=== PATIENT | female | born 1990 | race African-American/Black ===

== ENCOUNTER 2017-07-19 19:13 | Emergency (ER) | payer BC ==
[2017-07-19 19:25] VITALS: BP 149/94
[2017-07-19] MEDS ORDERED: IPRATROPIUM/ALBUTEROL 0.5-2.5 MG/3 ML AMPUL NEB ONE ×2 (19:53→20:18)
[2017-07-19] MEDS ORDERED: PREDNISONE 20 MG TABLET PO ONE (19:54)
--- NOTE | 2017-07-19 19:54 | ER Document Report ---
ED General - General Chief Complaint: Shortness Of Breath Stated Complaint: DIFFICULTY BREATHING Time Seen by Provider: 07/19/17 19:53 Mode of Arrival: Ambulatory Information source: Patient Notes: 27-year-old female history of asthma presents with complaints of asthma exacerbation. Patient notes productive greenish cough over the past 2 days. Denies any fevers or chills TRAVEL OUTSIDE OF THE [place] IN LAST 30 DAYS: No - HPI Onset: Other - 2 day duration Onset/Duration: Persistent Quality of pain: Achy Severity: Mild Pain Level: Denies Associated symptoms: Productive cough, Shortness of breath Exacerbated by: Coughing Relieved by: Denies Similar symptoms previously: Yes Recently seen / treated by doctor: Yes - Related Data Allergies/Adverse Reactions: clindamycin [Clindamycin] Allergy (Verified 01/23/15 19:31) metoclopramide HCl [From Reglan] Allergy (Verified 01/23/15 19:31) Past Medical History - Social History Smoking Status: Never Smoker Cigarette use (# per day): No Chew tobacco use (# tins/day): No Smoking Education Provided: No Frequency of alcohol use: None Drug Abuse: None Family History: Reviewed & Not Pertinent Patient has suicidal ideation: No Patient has homicidal ideation: No Pulmonary Medical History: Reports: Hx Asthma Neurological Medical History: Reports: Hx Migraine Renal/ Medical History: Denies: Hx Peritoneal Dialysis GI Medical History: Reports: Hx Gastroesophageal Reflux Disease Skin Medical History: Reports Hx Eczema Past Surgical History: Reports: Hx Section - x2, Hx Cholecystectomy - Immunizations Immunizations up to date: Yes Hx Diphtheria, Pertussis, Tetanus Vaccination: Yes - 2016 Review of Systems - Review of Systems Notes: REVIEW OF SYSTEMS: CONSTITUTIONAL : Denies fever, chills, or sweats. Denies recent illness. EENT: Denies eye, ear, throat, or mouth pain or symptoms. Denies nasal or sinus congestion or discharge. Denies throat, tongue, or mouth swelling or difficulty swallowing. CARDIOVASCULAR: Denies chest pain. Denies palpitations or racing or irregular heart beat. Denies ankle edema. RESPIRATORY: Admits productive cough GASTROINTESTINAL: Denies abdominal pain or distention. Denies nausea, vomiting , or diarrhea. Denies blood in vomitus, stools, or per rectum. Denies black, tarry stools. Denies constipation. GENITOURINARY: Denies difficulty urinating, painful urination, burning, frequency, blood in urine, or discharge. FEMALE GENITOURINARY: Denies vaginal bleeding, heavy or abnormal periods, irregular periods. Denies vaginal discharge or odor. MUSCULOSKELETAL: Denies back or neck pain or stiffness. Denies joint pain or swelling. SKIN: Denies rash, lesions or sores. HEMATOLOGIC : Denies easy bruising or bleeding. LYMPHATIC: Denies swollen, enlarged glands. NEUROLOGICAL: Denies confusion or altered mental status. Denies passing out or loss of consciousness. Denies dizziness or lightheadedness. Denies headache. Denies weakness or paralysis or loss of use of either side. Denies problems with gait or speech. Denies sensory loss, numbness, or tingling. Denies seizures. PSYCHIATRIC: Denies anxiety or stress. Denies depression, suicidal ideation, or homicidal ideation. ALL OTHER SYSTEMS REVIEWED AND NEGATIVE. PHYSICAL EXAMINATION: GENERAL: Well-appearing, well-nourished and in no acute distress. HEAD: Atraumatic, normocephalic. EYES: Pupils equal round and reactive to light, extraocular movements intact, conjunctiva are normal. ENT: Nares patent, oropharynx clear without exudates. Moist mucous membranes. NECK: Normal range of motion, supple without lymphadenopathy LUNGS: Very faint inspiratory expiratory wheezing HEART: Regular rate and rhythm without murmurs ABDOMEN: Soft, nontender, nondistended abdomen. No guarding, no rebound. No masses appreciated. Female : deferred Musculoskeletal: Normal range of motion, no pitting or edema. No cyanosis. NEUROLOGICAL: Cranial nerves grossly intact. Normal speech, normal gait. Normal sensory, motor exams PSYCH: Normal mood, normal affect. SKIN: Warm, Dry, normal turgor, no rashes or lesions noted. Dictation was performed using [employer] voice recognition software Physical Exam - Vital signs Vitals: Temp Pulse Resp BP Pulse Ox 98.8 F 107 H 16 149/94 H 100 07/19/17 19:20 07/19/17 19:20 07/19/17 19:20 07/19/17 19:20 07/19/17 19:20 Course - Re-evaluation Re-evalutation: 07/19/17 20:54 Chest x-ray no no significant abnormality, given productivity of cough and exacerbation I will start the patient on antibiotics. She was given breathing treatments no significant improvement of breathing After performing a Medical Screening Examination, I estimate there is LOW risk for ACUTE CORONARY SYNDROME, RESPIRATORY FAILURE, SEPSIS OR MENINGITIS, thus I consider the discharge disposition reasonable. I have reevaluated this patient multiple times and no significant life threatening changes are noted. The patient and I have discussed the diagnosis and risks, and we agree with discharging home with close follow-up. We also discussed returning to the Emergency Department immediately if new or worsening symptoms occur. We have discussed the symptoms which are most concerning (e.g., changing or worsening pain, trouble swallowing or breathing, neck stiffness, fever) that necessitate immediate return. - Vital Signs Vital signs: Temp Pulse Resp BP Pulse Ox 98.8 F 107 H 16 149/94 H 100 07/19/17 19:20 07/19/17 19:20 07/19/17 19:20 07/19/17 19:20 07/19/17 19:20 - Diagnostic Test Radiology reviewed: Image reviewed, Reports reviewed - No significant abnormality Discharge - Discharge Clinical Impression: Asthma exacerbation Qualifiers: Asthma severity: mild Asthma persistence: intermittent Qualified Code(s): J45.21 - Mild intermittent asthma with (acute) exacerbation Condition: Stable Disposition: HOME, SELF-CARE Instructions: Asthma ([facility]) Additional Instructions: Follow up with your physician tomorrow for further care or return to the ED IMMEDIATELY if symptoms worsen or new concerns occur. If you cannot afford to follow up with your primary care physician a list of low cost clinics have been provided at the end of your discharge papers as well. Prescriptions: Azithromycin 250 mg PO ASDIR PRN #6 tablet PRN Reason: Prednisone [Deltasone 20 mg Tablet] 60 mg PO DAILY 5 Days #30 tablet Forms: Return to Work
--- NOTE | 2017-07-19 20:23 | RADIOLOGY REPORT (SQ) ---
EXAM DESCRIPTION: CHEST PA/LAT COMPLETED DATE/TIME: 07/19/2017 8:02 pm REASON FOR STUDY: productive cough ,asthma COMPARISON: None. EXAM PARAMETERS: NUMBER OF VIEWS: two views TECHNIQUE: Digital Frontal and Lateral radiographic views of the chest acquired. RADIATION DOSE: NA LIMITATIONS: none FINDINGS: LUNGS AND PLEURA: No opacities, masses or pneumothorax. No pleural effusion. MEDIASTINUM AND HILAR STRUCTURES: No masses or contour abnormalities. HEART AND VASCULAR STRUCTURES: Heart normal size. No evidence for failure. BONES: No acute findings. HARDWARE: None in the chest. OTHER: No other significant finding. IMPRESSION: NO SIGNIFICANT RADIOGRAPHIC FINDING IN THE CHEST. TECHNICAL DOCUMENTATION: JOB ID: [id number] [employer]- All Rights Reserved
== END 2017-07-19 20:59 | disposition home or self-care (01) ==
LOC: ER 19:13
DX: J45.21 Mild intermittent asthma with (acute) exacerbation (principal); Z90.49 Acquired absence of other specified parts of digestive tract; Z88.3 Allergy status to other anti-infective agents
CPT/HCPCS: 94640 ×2; 99284; 71020; J7512; J7620

== ENCOUNTER 2017-07-27 14:14 | Emergency (ER) | payer BC ==
--- NOTE | 2017-07-27 18:25 | EKG REPORT ---
SEVERITY:- NORMAL ECG - SINUS RHYTHM : Confirmed by: Rohan Herndon MD 27-Jul-2017 18:25:21
--- NOTE | 2017-07-27 18:55 | ER Document Report ---
ED Medical Screen (RME) - General Chief Complaint: Chest Pain Stated Complaint: CHEST,LEG,HAND TINGLING Time Seen by Provider: 07/27/17 18:50 TRAVEL OUTSIDE OF THE [place] IN LAST 30 DAYS: No - HPI Notes: 07/27/17 18:50 Pt with h/o eczema and asthma presents to the ED c/o chest tightness with breathing and with swallowing foods/liquid x2 weeks. Pt states that she was eval'd here about 1 week ago and was given steroids, antibiotic, and breathing treatments. Pt states that her URI symptoms have since resolved, but continues to feel the same tightness since before prev treatment. The tightness sensation does not radiate. She is not sure of any activity that worsens/ improves. Pt able to ambulate w/o difficulty. Tightness is relatively constant. Denies any headache, fever, neck pain, URI, sore throat, palpitations , syncope, cough, wheeze, dyspnea, abdominal pain, nausea/vomiting/diarrhea, urinary retention, dysuria, hematuria. I have treated and performed a rapid initial assessment of this patient. A comprehensive ED assessment and evaluation of the patient, analysis of test results and completion of medical decision making process will be conducted by additional ED providers. - Related Data Allergies/Adverse Reactions: clindamycin [Clindamycin] Allergy (Verified 07/27/17 14:58) metoclopramide HCl [From Reglan] Allergy (Verified 07/27/17 14:58) Past Medical History - Social History Chew tobacco use (# tins/day): No Frequency of alcohol use: None Drug Abuse: None Pulmonary Medical History: Reports: Hx Asthma Neurological Medical History: Reports: Hx Migraine Renal/ Medical History: Denies: Hx Peritoneal Dialysis GI Medical History: Reports: Hx Gastroesophageal Reflux Disease Skin Medical History: Reports Hx Eczema Past Surgical History: Reports: Hx Section - x2, Hx Cholecystectomy - Immunizations Immunizations up to date: Yes Hx Diphtheria, Pertussis, Tetanus Vaccination: Yes - 2016 History of Influenza Vaccine for 07/2017 - 12/2017 Season: Yes Influenza Administration Date for 07/2017 - 12/2017 Season: 07/15/17 Physical Exam - Vital signs Vitals: Temp Pulse Resp BP Pulse Ox 98.3 F 100 20 143/73 H 100 07/27/17 15:00 07/27/17 15:00 07/27/17 15:00 07/27/17 15:00 07/27/17 15:00 - Respiratory Respiratory status: No respiratory distress Chest status: Tender - tenderness elicited does not correspond to pt's concern Breath sounds: Normal - Cardiovascular Rhythm: Regular Heart sounds: Normal auscultation Course - Vital Signs Vital signs: Temp Pulse Resp BP Pulse Ox 98.3 F 100 20 143/73 H 100 07/27/17 15:00 07/27/17 15:00 07/27/17 15:00 07/27/17 15:00 07/27/17 15:00
--- NOTE | 2017-07-27 19:13 | RADIOLOGY REPORT (SQ) ---
EXAM DESCRIPTION: CHEST PA/LAT COMPLETED DATE/TIME: 07/27/2017 7:03 pm REASON FOR STUDY: chest tightness COMPARISON: 07/19/2017 EXAM PARAMETERS: NUMBER OF VIEWS: two views TECHNIQUE: Digital Frontal and Lateral radiographic views of the chest acquired. RADIATION DOSE: NA LIMITATIONS: none FINDINGS: LUNGS AND PLEURA: No opacities, masses or pneumothorax. No pleural effusion. MEDIASTINUM AND HILAR STRUCTURES: No masses or contour abnormalities. HEART AND VASCULAR STRUCTURES: Heart normal size. No evidence for failure. BONES: No acute findings. HARDWARE: None in the chest. OTHER: No other significant finding. IMPRESSION: NO SIGNIFICANT RADIOGRAPHIC FINDING IN THE CHEST. TECHNICAL DOCUMENTATION: JOB ID: [id number] [employer]- All Rights Reserved
[2017-07-27 19:31] LABS: ABSOLUTE EOSINOPHILS # (AUTO) 0.2 10^3/uL (0.0-0.6); ABSOLUTE LYMPHOCYTES (AUTO) 2.1 10^3/uL (0.5-4.7); ABSOLUTE MONOCYTES (AUTO) 0.8 10^3/uL (0.1-1.4); ABSOLUTE NEUT (AUTO) 6.6 10^3/uL (1.7-8.2); BASOPHILS % (AUTO) 0.3 % (0-2); EOSINOPHILS % (AUTO) 1.8 % (0-6); HEMATOCRIT 34.2 % (36.0-47.0); HEMOGLOBIN 10.7 g/dL (12.0-15.5); HGB HCT DIFFERENCE -2.1; LYMPHOCYTES % (AUTO) 21.5 % (13-45); MEAN CORPUSCULAR HEMOGLOBIN 20.5 pg (27.0-33.4); MEAN CORPUSCULAR HGB CONC 31.3 g/dL (32.0-36.0); MEAN CORPUSCULAR VOLUME 66 fl (80-97); MONOCYTES % (AUTO) 7.9 % (3-13); RED BLOOD COUNT 5.22 10^6/uL (3.72-5.28); RED CELL DISTRIBUTION WIDTH 16.7 % (11.5-14.0); SEGMENTED NEUTROPHILS % (AUTO) 68.5 % (42-78); WHITE BLOOD COUNT 9.6 10^3/uL (4.0-10.5)
[2017-07-27 19:48] LABS: ALANINE AMINOTRANSFERASE 26 U/L (9-52); ALBUMIN 3.3 g/dL (3.5-5.0); ALKALINE PHOSPHATASE 87 U/L (38-126); ANION GAP 7 (5-19); ASPARTATE AMINO TRANSFERASE 16 U/L (14-36); BILIRUBIN,DIRECT 0.3 mg/dL (0.0-0.4); BILIRUBIN,TOTAL 0.3 mg/dL (0.2-1.3); BLOOD UREA NITROGEN 11 mg/dL (7-20); CALCIUM 9.1 mg/dL (8.4-10.2); CARBON DIOXIDE 30 mmol/L (22-30); CHLORIDE 105 mmol/L (98-107); CREATININE RESULT 0.77 mg/dL (0.52-1.25); GLUCOSE 84 mg/dL (75-110); POTASSIUM 4.2 mmol/L (3.6-5.0); SODIUM 142.1 mmol/L (137-145); TOTAL PROTEIN 6.4 g/dL (6.3-8.2)
--- NOTE | 2017-07-27 21:01 | RADIOLOGY REPORT (SQ) ---
EXAM DESCRIPTION: CTA CHEST COMPLETED DATE/TIME: 07/27/2017 8:42 pm REASON FOR STUDY: SOB COMPARISON: 12/26/2015 and 04/25/2014 TECHNIQUE: CT scan of the chest performed using helical scanning technique with dynamic intravenous contrast injection. Images reviewed with lung, soft tissue and bone windows. Reconstructed coronal and sagittal MPR images reviewed. Additional 3 dimensional post-processing performed to develop Maximal Intensity Projection images (SD P). All images stored on PACS. All CT scanners at this facility use dose modulation, iterative reconstruction, and/or weight based d osing when appropriate to reduce radiation dose to as low as reasonably achievable (ALARA). [facility]: Dose Right [facility]: CareDose [facility]: Dose Right [facility]: Teradose 4D [facility]: 13th Lab CONTRAST TYPE AND DOSE: contrast/concentration: Isovue 370.00 mg/ml; Total Contrast Delivered: 86.0 ml; Total Saline Delivered: 109.9 ml Contrast bolus optimized for the pulmonary arteries. Not diagnostic for the aorta. RENAL FUNCTION: None required. The patient is less than 50 years old. RADIATION DOSE: Up-to-date CT equipment and radiation dose reduction techniques were employed. CTDIv ol: 13.2 - 41.5 mGy. DLP: 1358 mGy-cm. . LIMITATIONS: None. FINDINGS: LUNGS AND PLEURA: No masses, infiltrates, pneumothorax. No pleural effusions, calcificati ons. AORTA AND GREAT VESSELS: No aneurysm. Contrast bolus not optimized for the aorta. HEART: No pericardial effusion. No significant coronary artery calcifications. PULMONARY ARTERIES: No emboli visualized in the main pulmonary arteries or the segmental branches. HILAR AND MEDIASTINAL STRUCTURES: No identified masses or abnormal nodes. HARDWARE: None in the chest. UPPER ABDOMEN: Stable small hiatal hernia. Status post cholecystectomy. No additional significant f indings. Limited exam. THYROID AND OTHER SOFT TISSUES: No masses. No adenopathy. BONES: No acute or significant finding. 3D MIPS: Confirm above findings. OTHER: No other significant finding. IMPRESSION: NORMAL CTA OF THE CHEST. NO PULMONARY EMBOLI. NO SIGNIFICANT CHANGE FROM PRIOR 2 STUDIE S. COMMENT: Quality ID # [id number]: Final reports with documentation of one or more dose reduction techniques (e.g., Automated exposure control, adjustment of the mA and/or kV according to patient size, use of iterative reconstruction technique) TECHNICAL DOCUMENTATION: JOB ID: [id number] [employer]- All Rights Reserved
--- NOTE | 2017-07-27 21:05 | ER Document Report ---
ED Cardiac - General Chief Complaint: Chest Pain Stated Complaint: CHEST,LEG,HAND TINGLING Time Seen by Provider: 07/27/17 18:50 Mode of Arrival: Ambulatory Information source: Patient TRAVEL OUTSIDE OF THE [place] IN LAST 30 DAYS: No - HPI Patient complains to provider of: Chest pain, Chest tightness, Palpitations, Shortness of breath Was the onset of pain: Gradual Is the pain a: New problem Chest pain location: Pleuritic Quality of pain: Achy, Dull, Pressure Severity now: Mild Severity at worst: Moderate Chest pain precipitating factors: At Rest Cardiac risk factors: None Positive cardiac history: No Associated symptoms: Shortness of breath Exacerbated by: Coughing, Deep breaths, Torso movement, Lying flat Relieved by: Nothing Similar symptoms previously: Yes Notes: Patient is a 27-year-old female presenting to the emergency room today complaining of chest pain that has been present for the past 2 weeks, she was seen in this emergency room on 07/19/2017 for the symptoms and diagnosed with an asthma exacerbation, she was treated with antibiotics steroids and nebulizers, she reports mild intermittent relief of symptoms but they have returned and worsened, she reports that pain is worse when she takes a deep breath, she makes a certain twisting movement, symptoms sometimes radiate up into her neck and give her tingling sensation in her arms and legs at times, patient has a history of asthma and eczema as well as acid reflux, she sees a 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 garage door 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 for her asthma and uses nebulizer treatments at home as needed - Related Data Allergies/Adverse Reactions: clindamycin [Clindamycin] Allergy (Verified 07/27/17 14:58) metoclopramide HCl [From Reglan] Allergy (Verified 07/27/17 14:58) Past Medical History - General Information source: Patient - Social History Smoking Status: Never Smoker Chew tobacco use (# tins/day): No Frequency of alcohol use: None Drug Abuse: None Family History: Reviewed & Not Pertinent Pulmonary Medical History: Reports: Hx Asthma Neurological Medical History: Reports: Hx Migraine Renal/ Medical History: Denies: Hx Peritoneal Dialysis GI Medical History: Reports: Hx Gastroesophageal Reflux Disease Skin Medical History: Reports Hx Eczema Past Surgical History: Reports: Hx Section - x2, Hx Cholecystectomy - Immunizations Immunizations up to date: Yes Hx Diphtheria, Pertussis, Tetanus Vaccination: Yes - 2016 Review of Systems - Review of Systems Constitutional: No symptoms reported EENT: No symptoms reported Cardiovascular: See HPI Respiratory: See HPI Gastrointestinal: No symptoms reported Genitourinary: No symptoms reported Female Genitourinary: No symptoms reported Musculoskeletal: No symptoms reported Skin: No symptoms reported Hematologic/Lymphatic: No symptoms reported Neurological/Psychological: No symptoms reported -: Yes All other systems reviewed and negative Physical Exam - Vital signs Vitals: Temp Pulse Resp BP Pulse Ox 98.3 F 100 20 143/73 H 100 07/27/17 15:00 07/27/17 15:00 07/27/17 15:00 07/27/17 15:00 07/27/17 15:00 Interpretation: Normal - General General appearance: Appears well, Alert - HEENT Head: Normocephalic, Atraumatic Eyes: Normal Pupils: PERRL - Respiratory Respiratory status: No respiratory distress Chest status: Tender - Tender to palpate over midsternum Breath sounds: Normal Chest palpation: Normal - Cardiovascular Rhythm: Regular Heart sounds: Normal auscultation Murmur: No - Abdominal Inspection: Normal Distension: No distension Bowel sounds: Normal Tenderness: Nontender Organomegaly: No organomegaly - Back Back: Normal, Nontender - Extremities General upper extremity: Normal inspection, Nontender, Normal color, Normal ROM , Normal temperature General lower extremity: Normal inspection, Nontender, Normal color, Normal ROM , Normal temperature, Normal weight bearing. No: Yuko's sign - Neurological Neuro grossly intact: Yes Cognition: Normal Orientation: AAOx4 Liana Coma Scale Eye Opening: Spontaneous Liana Coma Scale Verbal: Oriented Liana Coma Scale Motor: Obeys Commands Liana Coma Scale Total: 15 Speech: Normal Motor strength normal: LUE, RUE, LLE, RLE Sensory: Normal - Psychological Associated symptoms: Normal affect, Normal mood - Skin Skin Temperature: Warm Skin Moisture: Dry Skin Color: Normal Course - Re-evaluation Re-evalutation: 07/27/17 22:50 Lab and imaging findings are completely unremarkable in this 27-year-old healthy female, patient does have some reproducible chest pain on palpation, this is her second visit this month for these symptoms, a review of her history shows multiple visits in the past for similar symptoms, patient was advised to follow-up with her primary care provider, continue using nebulizer treatments at home, take Tylenol or Motrin as needed for pain, or return if symptoms worsen , patient acknowledges understanding and agreement with this plan - Vital Signs Vital signs: Temp Pulse Resp BP Pulse Ox 98.3 F 89 16 129/93 H 98 07/27/17 15:00 07/27/17 21:23 07/27/17 18:50 07/27/17 21:23 07/27/17 21:23 - Laboratory Result Diagrams: 07/27/17 19:10 07/27/17 19:10 Laboratory results interpreted by me: 07/27/17 07/27/17 19:10 19:10 Hgb 10.7 L Hct 34.2 L MCV 66 L MCH 20.5 L MCHC 31.3 L RDW 16.7 H Albumin 3.3 L - Diagnostic Test Radiology reviewed: Image reviewed, Reports reviewed - EKG Interpretation by Me EKG shows normal: Sinus rhythm Rate: Normal Rhythm: NSR Discharge - Discharge Clinical Impression: Chest pain Condition: Stable Disposition: HOME, SELF-CARE Instructions: Chest Wall Pain ([facility]), Chest Pain of Unclear Cause ([facility]) Additional Instructions: Follow up with your primary care provider in one to 2 days. Return to the emergency room immediately if symptoms worsen or any additional concerns.
[2017-07-27 21:24] LABS: CREATINE KINASE MB < 0.22 ng/mL (<4.55); TROPONIN I < 0.012 ng/mL
[2017-07-27 21:28] VITALS: BP 129/93
== END 2017-07-27 21:28 | disposition home or self-care (01) ==
LOC: ER 14:14
DX: R07.9 Chest pain, unspecified (principal); R20.2 Paresthesia of skin; Z88.6 Allergy status to analgesic agent; Z90.49 Acquired absence of other specified parts of digestive tract
CPT/HCPCS: 36415; 71020; 71275; 80053; 82550; 82553; 83880; 84484; 84702; 85025; 93005; 93010; 99285

== ENCOUNTER 2017-09-14 16:47 | Emergency (ER) | payer BC ==
[2017-09-14] MEDS ORDERED: LIDOCAINE 2% VISCOUS SOLN 20 ML UDCUP PO ONE (19:04)
--- NOTE | 2017-09-14 19:12 | ER Document Report ---
ED General <KEVEN RODRÍGUEZ - Last Filed: 09/14/17 20:21> - General Mode of Arrival: Ambulatory Information source: Patient TRAVEL OUTSIDE OF THE [place] IN LAST 30 DAYS: No - HPI Patient complains to provider of: Shortness of Breath and abdominal pain Onset: Other - 1 week ago Associated symptoms: Other - see notes above <SHILPA NORIEGA - Last Filed: 09/14/17 20:30> - General Chief Complaint: Epigastric Pain Stated Complaint: DIZZY, CHEST TIGHTNESS, SHORTNESS OF BREATH Time Seen by Provider: 09/14/17 18:42 Notes: 27 year old female with history of asthma and GERD presents to the ED complaining of shortness of breath and a dull throbbing pain to the epigastrium that radiates to the RUQ which started 1 week ago. Patient reports that her primary care provider gave her Prednisone thinking her asthma was acting up, but the patient had no relief. Patient additionally complains of some chest discomfort and nausea. Pain is worsened when laying or sitting down. Pain not exacerbated with eating. Patient takes 20mg Pantoprazole bid. (SHILPA NORIEGA) - Related Data Allergies/Adverse Reactions: clindamycin [Clindamycin] Allergy (Verified 09/14/17 16:50) metoclopramide HCl [From Reglan] Allergy (Verified 09/14/17 16:50) Home Medications: Current Home Medications Albuterol Sulfate [Proair HFA] 1 - 2 puff IH Q4 PRN 09/14/17 [History] Budesonide/Formoterol Fumarate [Symbicort 160-4.5 Mcg Inhaler] 2 puff IN DAILY 09/14/17 [History] Hydroxyzine HCl [Hydroxyzine HCl] 25 mg PO QID PRN 09/14/17 [History] Pantoprazole Sodium [Pantoprazole Sodium] 40 mg PO DAILY 09/14/17 [History] Pimecrolimus [Elidel] 1 appful TOP ASDIR PRN 09/14/17 [History] Tiotropium [place] [Spiriva Handihaler 18 mcg/dose (30 Dose)] 1 cap IH BID 09/14 [History] Topiramate [Topiramate] 50 mg PO BID 09/14/17 [History] Zolpidem Tartrate [Zolpidem Tartrate] 10 mg PO QHS 09/14/17 [History] Past Medical History - General Information source: Patient - Social History Smoking Status: Unknown if Ever Smoked Chew tobacco use (# tins/day): No Frequency of alcohol use: None Drug Abuse: None Family History: Reviewed & Not Pertinent Patient has suicidal ideation: No Patient has homicidal ideation: No Pulmonary Medical History: Reports: Hx Asthma Neurological Medical History: Reports: Hx Migraine Renal/ Medical History: Denies: Hx Peritoneal Dialysis GI Medical History: Reports: Hx Gastroesophageal Reflux Disease Skin Medical History: Reports Hx Eczema Past Surgical History: Reports: Hx Section - x2, Hx Cholecystectomy - Immunizations Immunizations up to date: Yes Hx Diphtheria, Pertussis, Tetanus Vaccination: Yes - 2016 <SHILPA NORIEGA - Last Filed: 09/14/17 20:30> Review of Systems - Review of Systems Constitutional: No symptoms reported EENT: No symptoms reported Cardiovascular: No symptoms reported Respiratory: See HPI, Short of breath Gastrointestinal: See HPI, Abdominal pain, Nausea Genitourinary: No symptoms reported Female Genitourinary: No symptoms reported Musculoskeletal: No symptoms reported Skin: No symptoms reported Hematologic/Lymphatic: No symptoms reported Neurological/Psychological: No symptoms reported -: Yes All other systems reviewed and negative <SHILPA NORIEGA - Last Filed: 09/14/17 20:30> Physical Exam - General General appearance: Alert In distress: None - Respiratory Respiratory status: No respiratory distress Breath sounds: Normal - Cardiovascular Rhythm: Regular Heart sounds: Normal auscultation - Abdominal Inspection: Normal Tenderness: Nontender <SHILPA NORIEGA - Last Filed: 09/14/17 20:30> - Vital signs Vitals: Temp Pulse Resp BP Pulse Ox 97.8 F 95 16 125/89 H 99 09/14/17 16:52 09/14/17 16:52 09/14/17 16:52 09/14/17 16:52 09/14/17 16:52 Course - EKG Interpretation by Mo EKG shows normal: Sinus rhythm Rate: Normal Rhythm: NSR <KEVEN RODRÍGUEZ - Last Filed: 09/14/17 20:21> <SHILPA NORIEGA - Last Filed: 09/14/17 20:30> - Re-evaluation Re-evalutation: 09/14/17 20:21 Patient states that GI cocktail has helped with her symptoms. EKG shows no changes from previous normal sinus rhythm with negative troponin. Troponin was taken due to patient's weight and concern of which she states has been discomfort in the epigastric area. This pain has been continuous for over a week for only 1 troponin is necessary at this time. Will be discharged an adjunct her omeprazole with Zantac and have patient follow-up with her primary care within the next week if symptoms continue (KEVEN RODRÍGUEZ) 09/14/17 20:23 Patient is PERC negative. (SHILPA NORIEGA) - Vital Signs Vital signs: Temp Pulse Resp BP Pulse Ox 97.8 F 95 16 125/89 H 99 09/14/17 16:52 09/14/17 16:52 09/14/17 16:52 09/14/17 16:52 09/14/17 16:52 Discharge <KEVEN RODRÍGUEZ - Last Filed: 09/14/17 20:21> <SHILPA NORIEGA - Last Filed: 09/14/17 20:30> - Discharge Clinical Impression: Gastritis Condition: Stable Disposition: HOME, SELF-CARE Instructions: Gastritis ([facility]) Additional Instructions: Follow up with primary care within a week or return to the ED for new or worsening symptoms. Prescriptions: Ranitidine HCl [Zantac 150 mg Tablet] 150 mg PO BID #60 tablet Scribe Documentation - Scribe Written by Nichelle:: Nichelle Jones, 09/14/20171947 acting as scribe for :: Dc <SHILPA NORIEGA - Last Filed: 09/14/17 20:30>
[2017-09-14] MEDS ORDERED: MAG HYDROX/AL HYDROX/SIMETH SUSP 30 ML UDCUP PO PRN (19:31)
[2017-09-14] MEDS ORDERED: FAMOTIDINE 20 MG TABLET PO ONE (19:32)
[2017-09-14] MEDS ORDERED: BACLOFEN 20 MG TABLET PO ONE (19:32)
[2017-09-14 20:39] VITALS: BP 137/80
--- NOTE | 2017-09-15 20:58 | EKG REPORT ---
SEVERITY:- NORMAL ECG - SINUS RHYTHM : Confirmed by: Rohan Herndon MD 15-Sep-2017 14:23:22
== END 2017-09-14 20:39 | disposition home or self-care (01) ==
LOC: ER 16:47
DX: K29.70 Gastritis, unspecified, without bleeding (principal); R06.02 Shortness of breath; R42 Dizziness and giddiness; R07.9 Chest pain, unspecified; Z88.3 Allergy status to other anti-infective agents; Z90.49 Acquired absence of other specified parts of digestive tract
CPT/HCPCS: 93005; 99284; 36415; 84484; 93010; J3490 ×2

== ENCOUNTER 2017-09-20 22:09 | Emergency (ER) | payer BC ==
[2017-09-20] MEDS ORDERED: LIDOCAINE 2% VISCOUS SOLN 20 ML UDCUP PO ONE (23:00)
[2017-09-20] MEDS ORDERED: MAG HYDROX/AL HYDROX/SIMETH SUSP 30 ML UDCUP PO ONE (23:00)
--- NOTE | 2017-09-20 23:03 | ER Document Report ---
ED GI/ - General Chief Complaint: Abdominal Pain Stated Complaint: ABDOMINAL PAIN Time Seen by Provider: 09/20/17 22:45 Mode of Arrival: Ambulatory Information source: Patient Notes: Patient presents complaining of epigastric abdominal pain that goes into her chest and down into her abdomen that has been present for the past 2 weeks. Patient states that the pain worsens whenever she eats food. Patient states that she has not ate any food for the past 2 days in an attempt to prevent her stomach from hurting. Patient states she was evaluated for this complaint a week ago. Patient denies any improvement of her symptoms. Patient states she has had left lower pelvic pain for the past 3 days. Patient denies any vaginal bleeding or discharge. Patient denies any urinary symptoms, nausea, vomiting or diarrhea. Patient states last bowel movement was today and it was normal. Patient denies any cough or cold symptoms. Patient denies any history of DVT or PE in the past. TRAVEL OUTSIDE OF THE [place] IN LAST 30 DAYS: No - HPI Patient complains to provider of: Abdominal pain - Epigastric, Pelvic pain - Left lower pelvic. No: Diarrhea, Dysuria, Hematuria, Vaginal discharge, Vaginal pain, Vomiting Onset: Other - Epigastric pain 2 weeks, pelvic pain 3 days Timing/Duration: Persistent Quality of pain: Sharp Pain Level: 4 Location: Epigastric, LLQ Vaginal bleeding (Compared to normal period): None Associated symptoms: denies: Constipation, Diarrhea, Dysuria, Fever, Loss of appetite, Nausea, Urinary hesitancy, Urinary frequency, Urinary retention, Vaginal discharge, Vomiting Exacerbated by: Food Relieved by: Denies Similar symptoms previously: Yes Recently seen / treated by doctor: Yes - Related Data Allergies/Adverse Reactions: clindamycin [Clindamycin] Allergy (Verified 09/20/17 22:09) Past Medical History - General Information source: Patient - Social History Smoking Status: Current Every Day Smoker Frequency of alcohol use: None Drug Abuse: None Occupation: Works at [employer] with: Family Family History: Reviewed & Not Pertinent Patient has suicidal ideation: No Patient has homicidal ideation: No - Past Medical History Cardiac Medical History: Denies: Hx Hypercholesterolemia, Hx Hypertension Pulmonary Medical History: Reports: Hx Asthma Neurological Medical History: Reports: Hx Migraine Renal/ Medical History: Denies: Hx Peritoneal Dialysis GI Medical History: Reports: Hx Gastroesophageal Reflux Disease Skin Medical History: Reports Hx Eczema Past Surgical History: Reports: Hx Section - x2, Hx Cholecystectomy - Immunizations Immunizations up to date: Yes Hx Diphtheria, Pertussis, Tetanus Vaccination: Yes - 2017 Review of Systems - Review of Systems Constitutional: No symptoms reported. denies: Fever, Recent illness EENT: No symptoms reported Cardiovascular: Chest pain - Abdominal pain radiates to her chest Respiratory: Short of breath - Patient states pain will occasionally make her short of breath. denies: Cough Gastrointestinal: Abdominal pain. denies: Nausea, Vomiting, Poor appetite Genitourinary: No symptoms reported. denies: Dysuria, Flank pain Female Genitourinary: No symptoms reported. denies: Vaginal discharge, Vaginal bleeding Musculoskeletal: No symptoms reported. denies: Back pain Skin: No symptoms reported Hematologic/Lymphatic: No symptoms reported Neurological/Psychological: No symptoms reported Physical Exam - Vital signs Vitals: Temp Pulse Resp BP Pulse Ox 98.3 F 105 H 16 142/87 H 100 09/20/17 22:16 09/20/17 22:16 09/20/17 22:16 09/20/17 22:16 09/20/17 22:16 - General General appearance: Appears well, Alert In distress: None - HEENT Head: Normocephalic Eyes: Normal Nasal: Normal Mouth/Lips: Normal Neck: Normal, Supple. No: Lymphadenopathy - Respiratory Respiratory status: No respiratory distress Chest status: Nontender Breath sounds: Normal Chest palpation: Normal - Cardiovascular Rhythm: Regular Heart sounds: S1 appreciated, S2 appreciated Murmur: No - Abdominal Inspection: Morbidly Obese Distension: No distension Bowel sounds: Normal Tenderness: Tender - epigastric Organomegaly: No organomegaly - Genitourinary External exam: Normal Speculum exam: Vaginal discharge Vaginal bleeding: None Bimanuel exam: Adnexal tenderness - Left - Back Back: Normal, Nontender. No: CVA tenderness, Vertebra tenderness - Extremities General upper extremity: Normal inspection, Nontender, Normal ROM General lower extremity: Normal inspection, Nontender, Normal ROM - Neurological Neuro grossly intact: Yes Cognition: Normal Burg[place] Coma Scale Eye Opening: Spontaneous [place] Coma Scale Verbal: Oriented Burg[place] Coma Scale Motor: Obeys Commands Liana Coma Scale Total: 15 - Psychological Associated symptoms: Normal affect, Normal mood - Skin Skin Temperature: Warm Skin Moisture: Dry Skin Color: Normal Course - Re-evaluation Re-evalutation: 09/21/17 12:[address] Riggs regarding patient presentation. Reviewed patient's symptoms tonight as well as her diagnostic evaluation on her previous ER visit. Reviewed patient's EKG. Agrees with diagnostic evaluation, no additional testing advised at this time. 09/21/17 01:54 Report and handoff given to Katty JOHNS - Vital Signs Vital signs: Temp Pulse Resp BP Pulse Ox 98.3 F 105 H 16 142/87 H 100 09/20/17 22:16 09/20/17 22:16 09/20/17 22:16 09/20/17 22:16 09/20/17 22:16 - Laboratory Result Diagrams: 09/20/17 23:15 09/20/17 23:15 Laboratory results interpreted by me: 09/20/17 23:15 Hgb 10.5 L Hct 33.7 L MCV 66 L MCH 20.7 L MCHC 31.3 L RDW 16.7 H Labs- Entire Visit 09/20/17 09/20/17 09/20/17 23:12 23:15 23:15 WBC 10.2 RBC 5.08 Hgb 10.5 L Hct 33.7 L MCV 66 L MCH 20.7 L MCHC 31.3 L RDW 16.7 H Plt Count 380 Seg Neutrophils % 69.5 Lymphocytes % 16.7 Monocytes % 12.2 Eosinophils % 1.2 Basophils % 0.4 Absolute Neutrophils 7.1 Absolute Lymphocytes 1.7 Absolute Monocytes 1.2 Absolute Eosinophils 0.1 Absolute Basophils 0.0 Sodium 140.5 Potassium 4.1 Chloride 104 Carbon Dioxide 29 Anion Gap 8 BUN 7 Creatinine 0.69 Est GFR ( Amer) > 60 Est GFR (Non-Af Amer) > 60 Glucose 87 Calcium 9.3 Total Bilirubin 0.3 Direct Bilirubin 0.3 Neonat Total Bilirubin Not Reportable Neonat Direct Bilirubin Not Reportable Neonat Indirect Bili Not Reportable AST 19 ALT 37 Alkaline Phosphatase 81 Total Protein 6.9 Albumin 3.7 Lipase 53.4 Serum HCG, Qual Urine Color STRAW Urine Appearance CLEAR Urine pH 7.0 Ur Specific Atkins 1.004 Urine Protein NEGATIVE Urine Glucose (UA) NEGATIVE Urine Ketones NEGATIVE Urine Blood NEGATIVE Urine Nitrite NEGATIVE Urine Bilirubin NEGATIVE Urine Urobilinogen NEGATIVE Ur Leukocyte Esterase NEGATIVE Urine WBC (Auto) 0 Urine RBC (Auto) 0 Urine Bacteria (Auto) TRACE Squamous Epi Cells Auto 5 Urine Ascorbic Acid NEGATIVE Epi Cells (Wet Prep) Trichomonas (Wet Prep) Vaginal WBC Vaginal Yeast 09/20/17 09/21/17 23:15 00:05 WBC RBC Hgb Hct MCV MCH MCHC RDW Plt Count Seg Neutrophils % Lymphocytes % Monocytes % Eosinophils % Basophils % Absolute Neutrophils Absolute Lymphocytes Absolute Monocytes Absolute Eosinophils Absolute Basophils Sodium Potassium Chloride Carbon Dioxide Anion Gap BUN Creatinine Est GFR ( Amer) Est GFR (Non-Af Amer) Glucose Calcium Total Bilirubin Direct Bilirubin Neonat Total Bilirubin Neonat Direct Bilirubin Neonat Indirect Bili AST ALT Alkaline Phosphatase Total Protein Albumin Lipase Serum HCG, Qual NEGATIVE Urine Color Urine Appearance Urine pH Ur Specific Atkins Urine Protein Urine Glucose (UA) Urine Ketones Urine Blood Urine Nitrite Urine Bilirubin Urine Urobilinogen Ur Leukocyte Esterase Urine WBC (Auto) Urine RBC (Auto) Urine Bacteria (Auto) Squamous Epi Cells Auto Urine Ascorbic Acid Epi Cells (Wet Prep) 3+ EPITHELIALS SEEN Trichomonas (Wet Prep) NO TRICHOMONAS SEEN Vaginal WBC RARE WBCS SEEN Vaginal Yeast NO YEAST SEEN Discharge - Discharge Clinical Impression: Pelvic pain, Elevated blood pressure reading, Anxiety Gastritis Qualifiers: Gastritis type: unspecified gastritis Chronicity: unspecified Gastritis bleeding: without bleeding Qualified Code(s): K29.70 - Gastritis, unspecified, without bleeding Instructions: Abdominal Pain ([facility]), Reflux Disease (GERD) ([facility]), Gastritis ([facility] ), Anxiety ([facility]) Additional Instructions: Return immediately for any new or worsening symptoms Followup with your primary care provider, call tomorrow to make a followup appointment Follow-up with your service desk manager for recheck Follow-up with nutrition manager for recheck Follow-up with Dr. Chacon for reevaluation of your anxiety symptoms Prescriptions: Sucralfate [Carafate 1 gm Tablet] 1 gm PO ACHS #40 tablet Forms: Elevated Blood Pressure Referrals: LISETTE MACIEL MD [Primary Care Provider] - Follow up tomorrow MAXIMINO ELLER MD [ACTIVE STAFF] - Follow up in 3-5 days LAMAR ALCANTAR MD [NO LOCAL MD] - Follow up in 3-5 days
[2017-09-20 23:30] LABS: APPEARANCE,URINE CLEAR; BILIRUBIN,URINE NEGATIVE (NEGATIVE); GLUCOSE, URINE NEGATIVE (NEGATIVE); KETONES,URINE NEGATIVE (NEGATIVE); LEUKOCYTE ESTERASE,URINE NEGATIVE (NEGATIVE); NITRITE,URINE NEGATIVE (NEGATIVE); PROTEIN,URINE NEGATIVE (NEGATIVE); URINE SPECIFIC GRAVITY 1.004; UROBILINOGEN,URINE NEGATIVE mg/dL (<2.0)
[2017-09-20 23:39] LABS: ABSOLUTE EOSINOPHILS # (AUTO) 0.1 10^3/uL (0.0-0.6); ABSOLUTE LYMPHOCYTES (AUTO) 1.7 10^3/uL (0.5-4.7); ABSOLUTE MONOCYTES (AUTO) 1.2 10^3/uL (0.1-1.4); ABSOLUTE NEUT (AUTO) 7.1 10^3/uL (1.7-8.2); BASOPHILS % (AUTO) 0.4 % (0-2); EOSINOPHILS % (AUTO) 1.2 % (0-6); HEMATOCRIT 33.7 % (36.0-47.0); HEMOGLOBIN 10.5 g/dL (12.0-15.5); HGB HCT DIFFERENCE -2.2; LYMPHOCYTES % (AUTO) 16.7 % (13-45); MEAN CORPUSCULAR HEMOGLOBIN 20.7 pg (27.0-33.4); MEAN CORPUSCULAR HGB CONC 31.3 g/dL (32.0-36.0); MEAN CORPUSCULAR VOLUME 66 fl (80-97); MONOCYTES % (AUTO) 12.2 % (3-13); RED BLOOD COUNT 5.08 10^6/uL (3.72-5.28); RED CELL DISTRIBUTION WIDTH 16.7 % (11.5-14.0); SEGMENTED NEUTROPHILS % (AUTO) 69.5 % (42-78); WHITE BLOOD COUNT 10.2 10^3/uL (4.0-10.5)
[2017-09-21 00:04] LABS: ALANINE AMINOTRANSFERASE 37 U/L (9-52); ALBUMIN 3.7 g/dL (3.5-5.0); ALKALINE PHOSPHATASE 81 U/L (38-126); ANION GAP 8 (5-19); ASPARTATE AMINO TRANSFERASE 19 U/L (14-36); BILIRUBIN,DIRECT 0.3 mg/dL (0.0-0.4); BILIRUBIN,TOTAL 0.3 mg/dL (0.2-1.3); BLOOD UREA NITROGEN 7 mg/dL (7-20); CALCIUM 9.3 mg/dL (8.4-10.2); CARBON DIOXIDE 29 mmol/L (22-30); CHLORIDE 104 mmol/L (98-107); CREATININE RESULT 0.69 mg/dL (0.52-1.25); GLUCOSE 87 mg/dL (75-110); LIPASE 53.4 U/L (23-300); POTASSIUM 4.1 mmol/L (3.6-5.0); SODIUM 140.5 mmol/L (137-145); TOTAL PROTEIN 6.9 g/dL (6.3-8.2)
[2017-09-21] MEDS ORDERED: ACETAMINOPHEN 325 MG TABLET PO ONE (01:21)
--- NOTE | 2017-09-21 02:44 | RADIOLOGY REPORT (SQ) ---
EXAM DESCRIPTION: U/S NON OB PEL TV W/DOPPLER CLINICAL HISTORY: 27 years, Female, left adnexal tenderness COMPARISON: None. TECHNIQUE: Transabdominal. LIMITATIONS: Body habitus and position prevented transvaginal evaluation. FINDINGS: 9.2 cm uterus, 0.7 cm endometrial stripe thickness, 3.5 cm cervical length, right ovarian fossa, and 3.4 cm left ovary appear within normal limits in size, shape, echotexture, and vascularity. Trace arterial flow of the left ovary is identified and normal venous and color Doppler flow is seen within normal limits. The right ovary is not directly visualized. No free fluid. IMPRESSION: No acute findings. 2011 [employer]- All Rights Reserved
[2017-09-21] MEDS ORDERED: SUCRALFATE 1 GM TABLET PO ONE (03:13)
[2017-09-21 03:26] VITALS: BP 133/54
--- NOTE | 2017-09-21 04:45 | EKG REPORT ---
SEVERITY:- NORMAL ECG - SINUS RHYTHM : Confirmed by: Karol Leahy 21-Sep-2017 04:15:25
== END 2017-09-21 03:27 | disposition home or self-care (01) ==
LOC: ER 22:09
DX: K29.70 Gastritis, unspecified, without bleeding (principal); R10.13 Epigastric pain; R10.2 Pelvic and perineal pain; F41.9 Anxiety disorder, unspecified; R03.0 Elevated blood-pressure reading, without diagnosis of hypertension; R07.9 Chest pain, unspecified; J45.909 Unspecified asthma, uncomplicated; R06.02 Shortness of breath; F17.200 Nicotine dependence, unspecified, uncomplicated; Z88.1 Allergy status to other antibiotic agents; Z90.49 Acquired absence of other specified parts of digestive tract; Z87.19 Personal history of other diseases of the digestive system
CPT/HCPCS: 93005; 99284; 36415; 87210; 83690; 84703; 85025; 80053; 81001; 87491; 87591; 76830; 93976; 93010; J3490

== ENCOUNTER 2017-10-10 18:28 | Emergency (ER) | payer BC ==
[2017-10-10] MEDS ORDERED: HYDROXYZINE PAMOATE 25 MG CAPSULE PO ONE (19:50)
--- NOTE | 2017-10-10 19:55 | ER Document Report ---
ED General - General Chief Complaint: Shortness Of Breath Stated Complaint: SHORTNESS OF BREATH Time Seen by Provider: 10/10/17 19:42 Notes: 27-year-old female here with complaints of shortness of breath chest tightness and anxious feeling ongoing for the past 2-3 months. She has been seen here for similar and had a negative chest CTA. 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 She feels this may be anxiety related and was initially taking Zoloft but was taken off of it due to some type of allergic reaction. She currently feels somewhat anxious. TRAVEL OUTSIDE OF THE [place] IN LAST 30 DAYS: No - Related Data Allergies/Adverse Reactions: clindamycin [Clindamycin] Allergy (Verified 10/10/17 18:29) Home Medications: Current Home Medications Ipratropium/Albuterol Sulfate [Duoneb 3 ml Ampul] 1 vial PO TID PRN 10/10/17 [ History] Past Medical History - Social History Smoking Status: Never Smoker Frequency of alcohol use: None Drug Abuse: None Family History: Reviewed & Not Pertinent Patient has suicidal ideation: No Patient has homicidal ideation: No - Past Medical History Cardiac Medical History: Denies: Hx Hypercholesterolemia, Hx Hypertension Pulmonary Medical History: Reports: Hx Asthma Neurological Medical History: Reports: Hx Migraine Renal/ Medical History: Denies: Hx Peritoneal Dialysis GI Medical History: Reports: Hx Gastroesophageal Reflux Disease Skin Medical History: Reports Hx Eczema Past Surgical History: Reports: Hx Section - x2, Hx Cholecystectomy - Immunizations Immunizations up to date: Yes Hx Diphtheria, Pertussis, Tetanus Vaccination: Yes - 2016 Review of Systems - Review of Systems Notes: See history of present illness for pertinent positive review of systems; otherwise all review of systems have been reviewed and are negative Physical Exam - Vital signs Vitals: Temp Pulse Resp BP Pulse Ox 98.6 F 95 18 143/75 H 100 10/10/17 18:56 10/10/17 18:56 10/10/17 18:56 10/10/17 18:56 10/10/17 18:56 - Notes Notes: PHYSICAL EXAMINATION: GENERAL: Well-appearing and in no acute distress. HEAD: Atraumatic, normocephalic. EYES: Pupils equal round and reactive to light, extraocular movements intact, sclera anicteric, conjunctiva are normal. ENT: nares patent, oropharynx clear without exudates. Moist mucous membranes. NECK: Normal range of motion, supple without lymphadenopathy LUNGS: CTAB and equal. No wheezes rales or rhonchi. HEART: Regular rate and rhythm without murmurs ABDOMEN: Soft, no tenderness. No guarding, no rebound EXTREMITIES: Normal range of motion, no pitting edema. No cyanosis. NEUROLOGICAL: Cranial nerves grossly intact. Normal sensory/motor exams. PSYCH: Appears mildly anxious SKIN: Warm, Dry, normal turgor, no rashes or lesions noted Course - Re-evaluation Re-evalutation: 10/10/17 19:53 MEDICAL DECISION MAKING: Concern for anxiety/panic attacks Similar symptoms ongoing for the past 2 months with negative CTA chest Patient declines blood work and further workup today She feels this is anxiety related and is asking for medication for same Dose of hydroxyzine here and prescription for same Instructed follow-up PCP and/or television parts tester next day or few Patient understands and agrees to the plan of care - Vital Signs Vital signs: Temp Pulse Resp BP Pulse Ox 98.6 F 95 18 143/75 H 100 10/10/17 18:56 10/10/17 18:56 10/10/17 18:56 10/10/17 18:56 10/10/17 18:56 Discharge - Discharge Clinical Impression: SOB (shortness of breath), Chest tightness Condition: Good Disposition: HOME, SELF-CARE Additional Instructions: You declined blood work tonight. Use the prescribed medication as needed for your symptoms. You were seen in the emergency department at [facility]. If you were given any sedating medications, be sure not to operate heavy machinery (example - driving) and be sure you are not too sedated to walk appropriately. Please followup with your primary physician in the next few days for further management/evaluation. Please return to the emergency department for worsening of symptoms or any symptom that you deem to be concerning or life-threatening. Thank you for allowing us to be part of your care. Prescriptions: Hydroxyzine Pamoate 50 mg PO BIDP PRN #20 capsule PRN Reason:
[2017-10-10 20:06] VITALS: BP 131/89
== END 2017-10-10 20:02 | disposition home or self-care (01) ==
LOC: ER 18:28
DX: J45.909 Unspecified asthma, uncomplicated (principal); R06.02 Shortness of breath; R07.89 Other chest pain; Z88.1 Allergy status to other antibiotic agents; Z88.8 Allergy status to other drugs, medicaments and biological substances
CPT/HCPCS: 99284

== ENCOUNTER 2017-10-26 20:40 | Emergency (ER) | payer BC ==
[2017-10-26] MEDS ORDERED: NORMAL SALINE 500 ML IV ONE (21:46)
[2017-10-26 21:58] VITALS: BP 140/79
[2017-10-26 22:54] LABS: ABSOLUTE LYMPHOCYTES (AUTO) 1.7 10^3/uL (0.5-4.7); ABSOLUTE NEUT (AUTO) 8.2 10^3/uL (1.7-8.2); BASOPHILS % (AUTO) 0.2 % (0-2); HEMATOCRIT 33.2 % (36.0-47.0); HEMOGLOBIN 10.2 g/dL (12.0-15.5); LYMPHOCYTES % (AUTO) 15.3 % (13-45); MEAN CORPUSCULAR HEMOGLOBIN 20.5 pg (27.0-33.4); MEAN CORPUSCULAR HGB CONC 30.7 g/dL (32.0-36.0); MEAN CORPUSCULAR VOLUME 67 fl (80-97); MONOCYTES % (AUTO) 9.4 % (3-13); PLATELET COUNT 454 10^3/uL (150-450); RED BLOOD COUNT 4.97 10^6/uL (3.72-5.28); RED CELL DISTRIBUTION WIDTH 16.1 % (11.5-14.0); SEGMENTED NEUTROPHILS % (AUTO) 75.1 % (42-78); TOTAL CELLS COUNTED % (AUTO) 100 %; WHITE BLOOD COUNT 10.9 10^3/uL (4.0-10.5)
[2017-10-26 23:05] LABS: APPEARANCE,URINE SLIGHTLY-CLOUDY; BILIRUBIN,URINE NEGATIVE (NEGATIVE); COLOR,URINE YELLOW; GLUCOSE, URINE NEGATIVE (NEGATIVE); KETONES,URINE TRACE mg/dL (NEGATIVE); LEUKOCYTE ESTERASE,URINE NEGATIVE (NEGATIVE); NITRITE,URINE NEGATIVE (NEGATIVE); PROTEIN,URINE NEGATIVE (NEGATIVE); URINE SPECIFIC GRAVITY 1.027; UROBILINOGEN,URINE NEGATIVE mg/dL (<2.0)
[2017-10-26 23:26] LABS: ALANINE AMINOTRANSFERASE 24 U/L (9-52); ALBUMIN 3.9 g/dL (3.5-5.0); ALKALINE PHOSPHATASE 73 U/L (38-126); ANION GAP 11 (5-19); ASPARTATE AMINO TRANSFERASE 16 U/L (14-36); BILIRUBIN,DIRECT 0.2 mg/dL (0.0-0.4); BILIRUBIN,TOTAL 0.2 mg/dL (0.2-1.3); BLOOD UREA NITROGEN 8 mg/dL (7-20); CALCIUM 9.9 mg/dL (8.4-10.2); CARBON DIOXIDE 26 mmol/L (22-30); CHLORIDE 106 mmol/L (98-107); GLUCOSE 86 mg/dL (75-110); LIPASE 39.6 U/L (23-300); POTASSIUM 4.2 mmol/L (3.6-5.0); SODIUM 142.5 mmol/L (137-145); TOTAL PROTEIN 6.9 g/dL (6.3-8.2)
--- NOTE | 2017-10-26 23:33 | ER Document Report ---
ED Medical Screen (RME) - General Chief Complaint: Nausea/Vomiting Stated Complaint: SHORTNESS OF BREATH Time Seen by Provider: 10/26/17 23:29 TRAVEL OUTSIDE OF THE [place] IN LAST 30 DAYS: No - HPI Notes: 10/26/17 23:31 Patient is a 27yo female with a h/o hiatal hernia who presents to the ED c/o nausea with intermittent vomiting (x2 today) x1 week with an occ epigastric/mid abd discomfort (dull). Pt states that she also has a dry semi-productive cough , nasal martha/discharge x1 week. The pain does not radiate. Pt began 'shaking' this morning. Pt has had a dec PO intake due to the nausea. She is still urinating normally and having soft BM's. Denies any headache, fever, chest pain , palpitations, syncope, shortness of breath, wheeze, dyspnea, diarrhea, urinary retention, dysuria, hematuria, loss of control of bowel or bladder, numbness/tingling, saddle anesthesia, muscle paralysis/weakness, or rash. I have treated and performed a rapid initial assessment of this patient. A comprehensive ED assessment and evaluation of the patient, analysis of test results and completion of medical decision making process will be conducted by additional ED providers. - Related Data Allergies/Adverse Reactions: clindamycin [Clindamycin] Allergy (Verified 10/10/17 18:29) metoclopramide [From Reglan] Allergy (Verified 10/26/17 20:46) Past Medical History - Past Medical History Cardiac Medical History: Denies: Hx Hypercholesterolemia, Hx Hypertension Pulmonary Medical History: Reports: Hx Asthma Neurological Medical History: Reports: Hx Migraine Renal/ Medical History: Denies: Hx Peritoneal Dialysis GI Medical History: Reports: Hx Gastroesophageal Reflux Disease Skin Medical History: Reports Hx Eczema Past Surgical History: Reports: Hx Section - x2, Hx Cholecystectomy - Immunizations Immunizations up to date: Yes Hx Diphtheria, Pertussis, Tetanus Vaccination: Yes - 2016 History of Influenza Vaccine for 07/2017 - 12/2017 Season: Yes Influenza Administration Date for 07/2017 - 12/2017 Season: 07/15/17 Physical Exam - Vital signs Vitals: Temp Pulse Resp BP Pulse Ox 98.4 F 84 18 140/79 H 98 10/26/17 21:56 10/26/17 21:56 10/26/17 21:56 10/26/17 21:56 10/26/17 21:56 - Respiratory Respiratory status: No respiratory distress Breath sounds: Normal - Cardiovascular Rhythm: Regular Heart sounds: Normal auscultation Course - Vital Signs Vital signs: Temp Pulse Resp BP Pulse Ox 98.4 F 84 18 140/79 H 98 10/26/17 21:56 10/26/17 21:56 10/26/17 21:56 10/26/17 21:56 10/26/17 21:56 - Laboratory Result Diagrams: 10/26/17 22:15 10/26/17 22:15 Laboratory results interpreted by me: 10/26/17 10/26/17 22:15 22:15 WBC 10.9 H Hgb 10.2 L Hct 33.2 L MCV 67 L MCH 20.5 L MCHC 30.7 L RDW 16.1 H Plt Count 454 H Urine Ketones TRACE H Urine Ascorbic Acid 40 H
[2017-10-26] MEDS ORDERED: ONDANSETRON HCL INJ/PF 4 MG/2 ML SDV IV ONE (23:47)
--- NOTE | 2017-10-27 00:15 | ER Document Report ---
ED General - General Chief Complaint: Nausea/Vomiting Stated Complaint: SHORTNESS OF BREATH Time Seen by Provider: 10/26/17 23:29 Mode of Arrival: Ambulatory Information source: Patient Notes: 27-year-old female history of anxiety presents with complaints of feeling anxious. Patient notes she has been shaking having difficulty sleeping at nights because of her anxiety. She denies any bleeding, denies any pain TRAVEL OUTSIDE OF THE [place] IN LAST 30 DAYS: No - HPI Onset: Other Onset/Duration: Persistent Quality of pain: No pain Severity: Mild Pain Level: Denies Associated symptoms: Weakness, Other Exacerbated by: Denies Relieved by: Denies Similar symptoms previously: Yes Recently seen / treated by doctor: Yes - pt states she has been seen by many doctors - Related Data Allergies/Adverse Reactions: clindamycin [Clindamycin] Allergy (Verified 10/10/17 18:29) metoclopramide [From Reglan] Allergy (Verified 10/26/17 20:46) Past Medical History - Social History Smoking Status: Never Smoker Cigarette use (# per day): No Chew tobacco use (# tins/day): No Smoking Education Provided: No Family History: Reviewed & Not Pertinent - Past Medical History Cardiac Medical History: Denies: Hx Hypercholesterolemia, Hx Hypertension Pulmonary Medical History: Reports: Hx Asthma Neurological Medical History: Reports: Hx Migraine Renal/ Medical History: Denies: Hx Peritoneal Dialysis GI Medical History: Reports: Hx Gastroesophageal Reflux Disease Skin Medical History: Reports Hx Eczema Past Surgical History: Reports: Hx Section - x2, Hx Cholecystectomy - Immunizations Immunizations up to date: Yes Hx Diphtheria, Pertussis, Tetanus Vaccination: Yes - 2016 Review of Systems - Review of Systems Notes: REVIEW OF SYSTEMS: CONSTITUTIONAL : Denies fever, chills, or sweats. Denies recent illness. EENT: Denies eye, ear, throat, or mouth pain or symptoms. Denies nasal or sinus congestion or discharge. Denies throat, tongue, or mouth swelling or difficulty swallowing. CARDIOVASCULAR: Denies chest pain. Denies palpitations or racing or irregular heart beat. Denies ankle edema. RESPIRATORY: Denies cough, cold, or chest congestion. Denies shortness of breath, difficulty breathing, or wheezing. GASTROINTESTINAL: Denies abdominal pain or distention. Denies nausea, vomiting , or diarrhea. Denies blood in vomitus, stools, or per rectum. Denies black, tarry stools. Denies constipation. GENITOURINARY: Denies difficulty urinating, painful urination, burning, frequency, blood in urine, or discharge. FEMALE GENITOURINARY: Denies vaginal bleeding, heavy or abnormal periods, irregular periods. Denies vaginal discharge or odor. MUSCULOSKELETAL: Denies back or neck pain or stiffness. Denies joint pain or swelling. SKIN: Denies rash, lesions or sores. HEMATOLOGIC : Denies easy bruising or bleeding. LYMPHATIC: Denies swollen, enlarged glands. NEUROLOGICAL: Admits to weakness PSYCHIATRIC: Admits to feeling anxious and jittery insomnia ALL OTHER SYSTEMS REVIEWED AND NEGATIVE. PHYSICAL EXAMINATION: GENERAL: Well-appearing, well-nourished and in no acute distress. Patient is shaking HEAD: Atraumatic, normocephalic. EYES: Pupils equal round and reactive to light, extraocular movements intact, conjunctiva are normal. ENT: Nares patent, oropharynx clear without exudates. Moist mucous membranes. NECK: Normal range of motion, supple without lymphadenopathy LUNGS: Breath sounds clear to auscultation bilaterally and equal. No wheezes rales or rhonchi. HEART: Regular rate and rhythm without murmurs ABDOMEN: Soft, nontender, nondistended abdomen. No guarding, no rebound. No masses appreciated. Female : deferred Musculoskeletal: Normal range of motion, no pitting or edema. No cyanosis. NEUROLOGICAL: Cranial nerves grossly intact. Normal speech, normal gait. Normal sensory, motor exams PSYCH: Patient is obviously anxious. SKIN: Warm, Dry, normal turgor, no rashes or lesions noted. Dictation was performed using [employer] voice recognition software Physical Exam - Vital signs Vitals: Temp Pulse Resp BP Pulse Ox 98.4 F 84 18 140/79 H 98 10/26/17 21:56 10/26/17 21:56 10/26/17 21:56 10/26/17 21:56 10/26/17 21:56 Course - Re-evaluation Re-evalutation: 10/27/17 00:29 Patient's presentation is consistent with anxiety, she overall looks well, she is noted to have iron deficiency anemia and has not followed up for this, I believe her generalized weakness symptoms are secondary to this. Patient been instructed to take [id number] she otherwise is in no distress and will be discharged home After performing a Medical Screening Examination, I estimate there is LOW risk for INTRACRANIAL HEMORRHAGE, ISCHEMIC CVA, MALIGNANT DYSRHYTHMIA, ACUTE CORONARY SYNDROME, MENINGITIS, PULMONARY EMBOLISM, or SEPSIS thus I consider the discharge disposition reasonable. I have reevaluated this patient multiple times and no significant life threatening changes are noted. The patient and I have discussed the diagnosis and risks, and we agree with discharging home with close follow-up with the understanding that symptoms and presentations can change. We also discussed returning to the Emergency Department immediately if new or worsening symptoms occur. We have discussed the symptoms which are most concerning (e.g., changing or worsening pain, weakness, vomiting, fever) that necessitate immediate return. - Vital Signs Vital signs: Temp Pulse Resp BP Pulse Ox 98.4 F 84 18 140/79 H 98 10/26/17 21:56 10/26/17 21:56 10/26/17 21:56 10/26/17 21:56 10/26/17 21:56 - Laboratory Result Diagrams: 10/26/17 22:15 10/26/17 22:15 Laboratory results interpreted by me: 10/26/17 10/26/17 22:15 22:15 WBC 10.9 H Hgb 10.2 L Hct 33.2 L MCV 67 L MCH 20.5 L MCHC 30.7 L RDW 16.1 H Plt Count 454 H Urine Ketones TRACE H Urine Ascorbic Acid 40 H Discharge - Discharge Clinical Impression: Anxiety Anemia Qualifiers: Anemia type: iron deficiency Iron deficiency anemia type: inadequate dietary iron intake Qualified Code(s): D50.8 - Other iron deficiency anemias Condition: Stable Disposition: HOME, SELF-CARE Referrals: LISETTE MACIEL MD [Primary Care Provider] - Follow up in 3-5 days
== END 2017-10-27 00:23 | disposition home or self-care (01) ==
LOC: ER 20:40
DX: F41.9 Anxiety disorder, unspecified (principal); D50.8 Other iron deficiency anemias; R11.2 Nausea with vomiting, unspecified; R06.02 Shortness of breath
CPT/HCPCS: 36415; 80053; 81001; 81025; 83690; 85025; 99284

== ENCOUNTER 2017-12-13 16:39 | Emergency (ER) | payer BC ==
[2017-12-13] MEDS ORDERED: IPRATROPIUM/ALBUTEROL 0.5-2.5 MG/3 ML AMPUL NEB ONE (17:37)
[2017-12-13] MEDS ORDERED: PREDNISONE 20 MG TABLET PO ONE (17:37)
--- NOTE | 2017-12-13 17:50 | ER Document Report ---
ED General - General Chief Complaint: Flu Symptoms Stated Complaint: COLD SYMPTOMS Time Seen by Provider: 12/13/17 17:30 Mode of Arrival: Ambulatory Information source: Patient Notes: [age]-year-old female cough wheezing. Patient notes she has been exposed to the flu, admits to chills body aches Patient was seen by myself diagnosed with anemia iron deficiency patient has been taking iron but notes it worsened her eczema TRAVEL OUTSIDE OF THE [place] IN LAST 30 DAYS: No - HPI Onset: Last week Onset/Duration: Persistent Quality of pain: Achy Severity: Mild Pain Level: 1 Associated symptoms: Body/muscle aches, Chills, Nonproductive cough, Shortness of breath Exacerbated by: Denies Relieved by: Denies Similar symptoms previously: Yes Recently seen / treated by doctor: Yes - Related Data Allergies/Adverse Reactions: amoxicillin Allergy (Verified 12/13/17 16:43) clindamycin [Clindamycin] Allergy (Verified 12/13/17 16:43) metoclopramide [From Reglan] Allergy (Verified 12/13/17 16:43) Past Medical History - Social History Smoking Status: Never Smoker Cigarette use (# per day): No Chew tobacco use (# tins/day): No Smoking Education Provided: No Frequency of alcohol use: None Drug Abuse: None Family History: Reviewed & Not Pertinent Patient has suicidal ideation: No Patient has homicidal ideation: No - Past Medical History Cardiac Medical History: Denies: Hx Hypercholesterolemia, Hx Hypertension Pulmonary Medical History: Reports: Hx Asthma Neurological Medical History: Reports: Hx Migraine Renal/ Medical History: Denies: Hx Peritoneal Dialysis GI Medical History: Reports: Hx Gastroesophageal Reflux Disease Skin Medical History: Reports Hx Eczema Past Surgical History: Reports: Hx Section - x2, Hx Cholecystectomy - Immunizations Immunizations up to date: Yes Hx Diphtheria, Pertussis, Tetanus Vaccination: Yes - 2016 Review of Systems - Review of Systems Notes: REVIEW OF SYSTEMS: ALL OTHER SYSTEMS REVIEWED AND NEGATIVE. PHYSICAL EXAMINATION: GENERAL: Obese female no acute distress HEAD: Atraumatic, normocephalic. EYES: Pupils equal round and reactive to light, extraocular movements intact, conjunctiva are normal. ENT: Nares patent, oropharynx clear without exudates. Moist mucous membranes. NECK: Normal range of motion, supple without lymphadenopathy LUNGS: Breath sounds clear to auscultation bilaterally and equal. No wheezes rales or rhonchi. HEART: Regular rate and rhythm without murmurs ABDOMEN: Soft, nontender, nondistended abdomen. No guarding, no rebound. No masses appreciated. Female : deferred Musculoskeletal: Normal range of motion, no pitting or edema. No cyanosis. NEUROLOGICAL: Cranial nerves grossly intact. Normal speech, normal gait. Normal sensory, motor exams PSYCH: Normal mood, normal affect. SKIN: Warm, Dry, normal turgor, no rashes or lesions noted. Dictation was performed using [email or web address] voice recognition software Physical Exam - Vital signs Vitals: Temp Pulse Resp BP Pulse Ox 98.4 F 93 20 129/63 H 99 12/13/17 16:50 12/13/17 16:50 12/13/17 16:50 12/13/17 16:50 12/13/17 16:50 Course - Re-evaluation Re-evalutation: 12/13/17 17:49 Patient will be given DuoNeb blood work will be rechecked chest x-ray is pending 12/13/17 18:38 pt looks well, vital are stable, labs note continued microcytic anemia, pt promises she rosy ltake iron We discussed the use of Tamiflu, patient wishes to defer at this time risks and benefits were discussed After performing a Medical Screening Examination, I estimate there is LOW risk for ACUTE CORONARY SYNDROME, PULMONARY EMBOLI, RESPIRATORY FAILURE, SEPSIS OR MENINGITIS, thus I consider the discharge disposition reasonable. I have reevaluated this patient multiple times and no significant life threatening changes are noted. The patient and I have discussed the diagnosis and risks, and we agree with discharging home with close follow-up. We also discussed returning to the Emergency Department immediately if new or worsening symptoms occur. We have discussed the symptoms which are most concerning (e.g., changing or worsening pain, trouble swallowing or breathing, neck stiffness, fever) that necessitate immediate return. 12/13/17 18:39 - Vital Signs Vital signs: Temp Pulse Resp BP Pulse Ox 98.7 F 68 16 138/99 H 98 12/13/17 18:34 12/13/17 18:34 12/13/17 18:34 12/13/17 18:34 12/13/17 18:34 - Laboratory Result Diagrams: 12/13/17 18:00 12/13/17 18:00 Laboratory results interpreted by me: 12/13/17 12/13/17 18:00 18:00 Hgb 10.3 L Hct 33.1 L MCV 67 L MCH 20.7 L MCHC 31.2 L RDW 16.6 H Eosinophils % 6.9 H Chloride 108 H BUN 6 L Total Protein 6.1 L Albumin 3.2 L - Diagnostic Test Radiology reviewed: Image reviewed, Reports reviewed - no acute fracture Discharge - Discharge Clinical Impression: Microcytic anemia URI (upper respiratory infection) Qualifiers: URI type: unspecified viral URI Qualified Code(s): J06.9 - Acute upper respiratory infection, unspecified Condition: Stable Disposition: HOME, SELF-CARE Instructions: Upper Respiratory Illness ([facility]) Additional Instructions: Follow up with your physician tomorrow for further care or return to the ED IMMEDIATELY if symptoms worsen or new concerns occur. If you cannot afford to follow up with your primary care physician a list of low cost clinics have been provided at the end of your discharge papers as well. Forms: Return to Work
[2017-12-13 18:18] LABS: ABSOLUTE EOSINOPHILS # (AUTO) 0.4 10^3/uL (0.0-0.6); ABSOLUTE MONOCYTES (AUTO) 0.7 10^3/uL (0.1-1.4); ABSOLUTE NEUT (AUTO) 4.1 10^3/uL (1.7-8.2); BASOPHILS % (AUTO) 0.8 % (0-2); EOSINOPHILS % (AUTO) 6.9 % (0-6); HEMATOCRIT 33.1 % (36.0-47.0); HEMOGLOBIN 10.3 g/dL (12.0-15.5); LYMPHOCYTES % (AUTO) 15.9 % (13-45); MEAN CORPUSCULAR HEMOGLOBIN 20.7 pg (27.0-33.4); MEAN CORPUSCULAR HGB CONC 31.2 g/dL (32.0-36.0); MEAN CORPUSCULAR VOLUME 67 fl (80-97); MONOCYTES % (AUTO) 10.7 % (3-13); PLATELET COUNT 374 10^3/uL (150-450); RED BLOOD COUNT 4.98 10^6/uL (3.72-5.28); RED CELL DISTRIBUTION WIDTH 16.6 % (11.5-14.0); SEGMENTED NEUTROPHILS % (AUTO) 65.7 % (42-78); TOTAL CELLS COUNTED % (AUTO) 100 %; WHITE BLOOD COUNT 6.2 10^3/uL (4.0-10.5)
--- NOTE | 2017-12-13 18:22 | RADIOLOGY REPORT (SQ) ---
EXAM DESCRIPTION: CHEST SINGLE VIEW COMPLETED DATE/TIME: 12/13/2017 6:14 pm REASON FOR STUDY: cough COMPARISON: 07/27/2017. EXAM PARAMETERS: NUMBER OF VIEWS: One view. TECHNIQUE: Single frontal radiographic view of the chest acquired. RADIATION DOSE: NA LIMITATIONS: None. FINDINGS: LUNGS AND PLEURA: No opacities, masses or pneumothorax. No pleural effusion. MEDIASTINUM AND HILAR STRUCTURES: No masses. Contour normal. HEART AND VASCULAR STRUCTURES: Heart normal in size. Normal vasculature. BONES: No acute findings. HARDWARE: None in the chest. OTHER: No other significant finding. IMPRESSION: NO ACUTE RADIOGRAPHIC FINDING IN THE CHEST. TECHNICAL DOCUMENTATION: JOB ID: [id number] [email or web address]- All Rights Reserved Reading location - IP/workstation name: [email or web address]
[2017-12-13 18:32] LABS: ALANINE AMINOTRANSFERASE 22 U/L (9-52); ALBUMIN 3.2 g/dL (3.5-5.0); ALKALINE PHOSPHATASE 69 U/L (38-126); ANION GAP 5 (5-19); ASPARTATE AMINO TRANSFERASE 14 U/L (14-36); BILIRUBIN,DIRECT 0.2 mg/dL (0.0-0.4); BILIRUBIN,TOTAL 0.2 mg/dL (0.2-1.3); BLOOD UREA NITROGEN 6 mg/dL (7-20); CALCIUM 8.8 mg/dL (8.4-10.2); CARBON DIOXIDE 28 mmol/L (22-30); CHLORIDE 108 mmol/L (98-107); GLUCOSE 88 mg/dL (75-110); SODIUM 140.6 mmol/L (137-145); TOTAL PROTEIN 6.1 g/dL (6.3-8.2)
[2017-12-13 18:36] VITALS: BP 138/99
== END 2017-12-13 18:36 | disposition home or self-care (01) ==
LOC: ER 16:39
DX: J06.9 Acute upper respiratory infection, unspecified (principal); D50.9 Iron deficiency anemia, unspecified; M79.1 Myalgia; Z88.0 Allergy status to penicillin; Z88.3 Allergy status to other anti-infective agents; Z90.49 Acquired absence of other specified parts of digestive tract
CPT/HCPCS: 94640; 99284; 36415; 85025; 80053; 71045; J7512; J7620

== ENCOUNTER → 2017-12-18 | Outpatient (CLI) | payer BC ==
[2017-12-18 16:39] LABS: ABSOLUTE EOSINOPHILS # (AUTO) 0.5 10^3/uL (0.0-0.6); ABSOLUTE LYMPHOCYTES (AUTO) 1.2 10^3/uL (0.5-4.7); ABSOLUTE MONOCYTES (AUTO) 0.6 10^3/uL (0.1-1.4); ABSOLUTE NEUT (AUTO) 4.6 10^3/uL (1.7-8.2); BASOPHILS % (AUTO) 0.4 % (0-2); HEMATOCRIT 33.9 % (36.0-47.0); HEMOGLOBIN 10.5 g/dL (12.0-15.5); LYMPHOCYTES % (AUTO) 17.4 % (13-45); MEAN CORPUSCULAR HEMOGLOBIN 20.5 pg (27.0-33.4); MEAN CORPUSCULAR VOLUME 66 fl (80-97); MONOCYTES % (AUTO) 8.2 % (3-13); PLATELET COUNT 382 10^3/uL (150-450); RED BLOOD COUNT 5.13 10^6/uL (3.72-5.28); RED CELL DISTRIBUTION WIDTH 16.4 % (11.5-14.0); TOTAL CELLS COUNTED % (AUTO) 100 %; WHITE BLOOD COUNT 6.9 10^3/uL (4.0-10.5)
== END ==
LOC: OD 15:51
PROVIDERS: ATTEND Internal Medicine Pulmonary Disease
DX: J45.51 Severe persistent asthma with (acute) exacerbation (principal)
CPT/HCPCS: 36415; 82785; 85025

== ENCOUNTER 2018-06-07 14:46 | Emergency (ER) | payer BC ==
[2018-06-07] MEDS ORDERED: IPRATROPIUM/ALBUTEROL 0.5-2.5 MG/3 ML AMPUL NEB ONE (15:16)
[2018-06-07] MEDS ORDERED: PREDNISONE 20 MG TABLET PO ONE (15:16)
[2018-06-07] MEDS ORDERED: ASPIRIN 81 MG TABLET, CHEWABLE PO ONE (15:17)
--- NOTE | 2018-06-07 15:19 | ER Document Report ---
ED Medical Screen (RME) - General Chief Complaint: Shortness Of Breath Stated Complaint: SHORT OF BREATH Time Seen by Provider: 06/07/18 15:11 TRAVEL OUTSIDE OF THE [place] IN LAST 30 DAYS: No - HPI Patient complains to provider of: Chest tightness 2 days - Related Data Allergies/Adverse Reactions: amoxicillin Allergy (Verified 06/07/18 15:09) clindamycin [Clindamycin] Allergy (Verified 06/07/18 15:09) metoclopramide [From Reglan] Allergy (Verified 06/07/18 15:09) Past Medical History - Past Medical History Cardiac Medical History: Denies: Hx Hypercholesterolemia, Hx Hypertension Pulmonary Medical History: Reports: Hx Asthma Neurological Medical History: Reports: Hx Migraine Renal/ Medical History: Denies: Hx Peritoneal Dialysis GI Medical History: Reports: Hx Gastroesophageal Reflux Disease Skin Medical History: Reports Hx Eczema Past Surgical History: Reports: Hx Section - x2, Hx Cholecystectomy - Immunizations Immunizations up to date: Yes Hx Diphtheria, Pertussis, Tetanus Vaccination: Yes - 2016 History of Influenza Vaccine for 07/2017 - 12/2017 Season: Yes Influenza Administration Date for 07/2017 - 12/2017 Season: 07/15/17 Physical Exam - Vital signs Vitals: Temp Pulse Resp BP Pulse Ox 98.4 F 96 18 133/74 H 98 06/07/18 14:52 06/07/18 14:52 06/07/18 14:52 06/07/18 14:52 06/07/18 14:52 Course - Re-evaluation Re-evalutation: 06/07/18 15:18 This 28-year-old female presents for evaluation of shortness of breath as well as chest tightness which developed over the last 2 days. She has a history of asthma as well as obesity and hypertension, given that she is at risk for some cardiac issues believe patient would benefit from rule out including EKG chest x-ray troponins 2. We will administer steroids as well as nebulization for symptom control as she does have faint wheezes there is not profound. She is utilized her nebulizer at home multiple times with only modest improvement in her symptoms. She does have an underlying diagnosis of anxiety, this could be contributing will defer to future provider. - Vital Signs Vital signs: Temp Pulse Resp BP Pulse Ox 98.4 F 96 18 133/74 H 98 06/07/18 14:52 06/07/18 14:52 06/07/18 14:52 06/07/18 14:52 06/07/18 14:52 Doctor's Discharge - Discharge Referrals: GUMARO VITALE MD [Primary Care Provider] - Follow up as needed
[2018-06-07 16:17] LABS: ABSOLUTE LYMPHOCYTES (AUTO) 1.1 10^3/uL (0.5-4.7); ABSOLUTE MONOCYTES (AUTO) 0.6 10^3/uL (0.1-1.4); ABSOLUTE NEUT (AUTO) 5.2 10^3/uL (1.7-8.2); BASOPHILS % (AUTO) 0.6 % (0-2); EOSINOPHILS % (AUTO) 0.6 % (0-6); HEMATOCRIT 33.5 % (36.0-47.0); HEMOGLOBIN 10.3 g/dL (12.0-15.5); LYMPHOCYTES % (AUTO) 16.3 % (13-45); MEAN CORPUSCULAR HEMOGLOBIN 20.3 pg (27.0-33.4); MEAN CORPUSCULAR HGB CONC 30.8 g/dL (32.0-36.0); MEAN CORPUSCULAR VOLUME 66 fl (80-97); MONOCYTES % (AUTO) 8.2 % (3-13); PLATELET COUNT 373 10^3/uL (150-450); RED BLOOD COUNT 5.09 10^6/uL (3.72-5.28); RED CELL DISTRIBUTION WIDTH 16.9 % (11.5-14.0); SEGMENTED NEUTROPHILS % (AUTO) 74.3 % (42-78); TOTAL CELLS COUNTED % (AUTO) 100 %
[2018-06-07 16:48] LABS: ALANINE AMINOTRANSFERASE 15 U/L (9-52); ALBUMIN 3.7 g/dL (3.5-5.0); ALKALINE PHOSPHATASE 83 U/L (38-126); ANION GAP 10 (5-19); ASPARTATE AMINO TRANSFERASE 33 U/L (14-36); BILIRUBIN,DIRECT 0.2 mg/dL (0.0-0.4); BILIRUBIN,TOTAL 0.2 mg/dL (0.2-1.3); BLOOD UREA NITROGEN 7 mg/dL (7-20); CALCIUM 8.8 mg/dL (8.4-10.2); CARBON DIOXIDE 26 mmol/L (22-30); CHLORIDE 108 mmol/L (98-107); CREATINE KINASE 85 U/L (30-135); GLUCOSE 91 mg/dL (75-110); POTASSIUM 4.2 mmol/L (3.6-5.0); SODIUM 144.4 mmol/L (137-145); TOTAL PROTEIN 7.3 g/dL (6.3-8.2)
[2018-06-07] MEDS ORDERED: KETOROLAC TROMETHAMINE INJ/PF 30 MG/1 ML SDV IV ONE (17:06)
--- NOTE | 2018-06-07 17:12 | ER Document Report ---
ED General - General Chief Complaint: Shortness Of Breath Stated Complaint: SHORT OF BREATH Time Seen by Provider: 06/07/18 15:11 Mode of Arrival: Ambulatory Information source: Patient Notes: This is a 28-year-old female with a history of asthma, eczema, gastritis who presents to the emergency room with intermittent shortness of breath, some chest discomfort worse with palpation, lying down and torso movement. She does report some epigastric discomfort and nausea. She does states she has been under a lot of stress lately. She also reports having a headache. She denies fever, chills, neck pain or photophobia. She denies any blood in the stool. TRAVEL OUTSIDE OF THE [place] IN LAST 30 DAYS: No - HPI Onset: Last week Onset/Duration: Gradual Quality of pain: Dull Severity: Moderate Pain Level: 2 Associated symptoms: Chest pain, Shortness of breath. denies: Diarrhea, Fever, Leg swelling, Nausea Exacerbated by: Movement Relieved by: Remaining still Similar symptoms previously: Yes Recently seen / treated by doctor: Yes - Related Data Allergies/Adverse Reactions: amoxicillin Allergy (Verified 06/07/18 15:09) clindamycin [Clindamycin] Allergy (Verified 06/07/18 15:09) metoclopramide [From Reglan] Allergy (Verified 06/07/18 15:09) Past Medical History - General Information source: Patient - Social History Smoking Status: Never Smoker Cigarette use (# per day): No Chew tobacco use (# tins/day): No Frequency of alcohol use: None Drug Abuse: None Lives with: Family Family History: Reviewed & Not Pertinent Patient has suicidal ideation: No Patient has homicidal ideation: No - Past Medical History Cardiac Medical History: Denies: Hx Hypercholesterolemia, Hx Hypertension Pulmonary Medical History: Reports: Hx Asthma Neurological Medical History: Reports: Hx Migraine Renal/ Medical History: Denies: Hx Peritoneal Dialysis GI Medical History: Reports: Hx Gastroesophageal Reflux Disease Skin Medical History: Reports Hx Eczema Past Surgical History: Reports: Hx Section - x2, Hx Cholecystectomy - Immunizations Immunizations up to date: Yes Hx Diphtheria, Pertussis, Tetanus Vaccination: Yes - 2016 Review of Systems - Review of Systems Constitutional: denies: Chills, Fever EENT: No symptoms reported Cardiovascular: Chest pain. denies: Palpitations, Heart racing, Orthopnea Respiratory: Short of breath, Wheezing. denies: Hemoptysis Gastrointestinal: No symptoms reported Genitourinary: No symptoms reported Female Genitourinary: No symptoms reported Musculoskeletal: See HPI Skin: No symptoms reported Hematologic/Lymphatic: No symptoms reported Neurological/Psychological: No symptoms reported Physical Exam - Vital signs Vitals: Temp Pulse Resp BP Pulse Ox 98.4 F 96 18 133/74 H 98 06/07/18 14:52 06/07/18 14:52 06/07/18 14:52 06/07/18 14:52 06/07/18 14:52 Notes: Physical exam: GENERAL: 28-year-old female, alert and oriented 3, oxygen saturation 99% on room air, blood pressure 133/74, pulse 81, respiratory rate 18, she is afebrile. She appears comfortable HEAD: Atraumatic, normocephalic. EYES: Pupils equal round and reactive to light, extraocular movements intact, sclera anicteric, conjunctiva are normal. ENT: TMs normal, nares patent, oropharynx clear without exudates. Moist mucous membranes. NECK: Normal range of motion, supple without obvious mass or JVD. LUNGS: Breath sounds clear to auscultation bilaterally and equal. No wheezes rales or rhonchi. HEART: Regular rate and rhythm without murmurs, rubs or gallops. ABDOMEN: Soft, normoactive bowel sounds. No tenderness to palpation. No guarding, no rebound. No masses appreciated. EXTREMITIES: Normal range of motion, no pitting or edema. No clubbing or cyanosis. NEUROLOGICAL: Cranial nerves II through XII grossly intact. Normal speech, moving all extremities. PSYCH: Normal mood, normal affect. SKIN: Warm, Dry, normal turgor, no rashes or lesions noted. Course - Vital Signs Vital signs: Temp Pulse Resp BP Pulse Ox 98.2 F 96 16 110/76 100 06/07/18 19:09 06/07/18 14:52 06/07/18 21:31 06/07/18 21:31 06/07/18 21:31 - Laboratory Result Diagrams: 06/07/18 15:50 06/07/18 15:50 Laboratory results interpreted by me: 06/07/18 06/07/18 15:50 15:50 Hgb 10.3 L Hct 33.5 L MCV 66 L MCH 20.3 L MCHC 30.8 L RDW 16.9 H Chloride 108 H - Diagnostic Test Radiology reviewed: Image reviewed, Reports reviewed - EKG Interpretation by Me Rate: Normal Rhythm: NSR - EKG shows normal sinus rhythm with a ventricular rate of 84, no acute ST-T wave changes Discharge - Discharge Clinical Impression: Chest wall pain Condition: Stable Disposition: HOME, SELF-CARE Additional Instructions: As we discussed, your labs look good today. Your heart tests were normal. The CT of the chest showed no evidence of pneumonia or blood clots. Follow-up with your doctor. Bring a copy of today's lab test results with you when you go. Take the pain medicine as needed. Take the nausea medicine as needed. Continue taking your medicines. Return to the emergency room for worsening shortness of breath, worsening chest pain or concerns or getting worse. The pain medicine you're taking prescribed as a narcotic. There are several important things you should know about this medicine: 1. This medicine contains Tylenol: It is important that you do not take Tylenol (or acetaminophen) while on this medicine. Tylenol is metabolized by the liver and taking too much Tylenol (acetaminophen) can lay to liver damage and even liver failure. 2. Taking narcotics for too long can lead to physical and mental dependence. Take this medicine only if really needed and in the lowest quantity to achieve pain relief. 3. Do not drink alcohol while on this medicine. Alcohol interacts with narcotics and the combination can be dangerous. 4. Do not drive or operate machinery while on this medicine. 5. Narcotics do cause constipation, so drink plenty of fluids and daily stool softeners. Prescriptions: Ondansetron HCl [Zofran 4 mg Tablet] 1 - 2 tab PO Q4H PRN #10 tablet PRN Reason: Oxycodone HCl/Acetaminophen [Percocet 5-325 mg Tablet] 1 - 2 tab PO ASDIR PRN # 25 tablet PRN Reason: Forms: Return to Work Referrals: GUMARO VITALE MD [ACTIVE STAFF] - Follow up in 3-5 days
[2018-06-07 17:15] LABS: CREATINE KINASE MB < 0.22 ng/mL (<4.55); TROPONIN I < 0.012 ng/mL
--- NOTE | 2018-06-07 19:27 | RADIOLOGY REPORT (SQ) ---
EXAM DESCRIPTION: CTA CHEST COMPLETED DATE/TIME: 06/07/2018 7:11 pm REASON FOR STUDY: chest pain COMPARISON: 07/27/2017. TECHNIQUE: CT scan of the chest performed using helical scanning technique with dynamic intravenous contrast injection. Images reviewed with lung, soft tissue and bone windows. Reconstructed coronal and sagittal MPR images reviewed. Additional 3 dimensional post-processing performed to develop Maximal Intensity Projection images (IN P). All images stored on PACS. All CT scanners at this facility use dose modulation, iterative reconstruction, and/or weight based d osing when appropriate to reduce radiation dose to as low as reasonably achievable (ALARA). [facility]: Dose Right [facility]: CareDose [facility]: Dose Right [facility]: Teradose 4D [facility]: ScaleMP CONTRAST TYPE AND DOSE: contrast/concentration: Isovue 350.00 mg/ml; Total Contrast Delivered: 85.0 ml; Total Saline Delivered: 90.0 ml Contrast bolus adequate for pulmonary arteries and aorta. RENAL FUNCTION: BUN 7 creatinine 0.64. RADIATION DOSE: CT Rad equipment meets quality standard of care and radiation dose reduction techniq ues were employed. CTDIvol: 40.0 - 49.6 mGy. DLP: 1473 mGy-cm. . LIMITATIONS: None. FINDINGS: LUNGS AND PLEURA: No masses, infiltrates, or pneumothorax. No pleural effusions or pleura l calcifications. AORTA AND GREAT VESSELS: No aneurysm. No dissection. HEART: No pericardial effusion. No significant coronary artery calcifications. PULMONARY ARTERIES: No emboli visualized in the main pulmonary arteries or the segmental branches. HILAR AND MEDIASTINAL STRUCTURES: No identified masses or abnormal nodes. HARDWARE: None in the chest. UPPER ABDOMEN: No significant findings. Limited exam. THYROID AND OTHER SOFT TISSUES: No masses. No adenopathy. BONES: No acute or significant finding. 3D MIPS: Confirm above findings. OTHER: No other significant finding. IMPRESSION: NORMAL CTA OF THE CHEST. NO PULMONARY EMBOLI. NO THORACIC AORTIC ANEURYSM OR DISSECTION . COMMENT: Quality ID # [id number]: Final reports with documentation of one or more dose reduction techniques (e.g., Automated exposure control, adjustment of the mA and/or kV according to patient size, use of iterative reconstruction technique) TECHNICAL DOCUMENTATION: JOB ID: [id number] [employer]- All Rights Reserved Reading location - IP/workstation name: [email or web address]
[2018-06-07] MEDS ORDERED: MAG HYDROX/AL HYDROX/SIMETH SUSP 30 ML UDCUP PO ONE (20:08)
[2018-06-07] MEDS ORDERED: LIDOCAINE 2% VISCOUS SOLN 20 ML UDCUP PO ONE (20:08)
--- NOTE | 2018-06-07 20:38 | EKG REPORT ---
SEVERITY:- NORMAL ECG - SINUS RHYTHM : Confirmed by: Karol Leahy 07-Jun-2018 17:38:03
[2018-06-07 21:36] VITALS: BP 110/76
== END 2018-06-07 21:43 | disposition home or self-care (01) ==
LOC: ER 14:46
DX: R07.89 Other chest pain (principal); J45.909 Unspecified asthma, uncomplicated; R06.02 Shortness of breath; R11.0 Nausea; R51 Headache; Z88.0 Allergy status to penicillin; Z88.1 Allergy status to other antibiotic agents; Z88.8 Allergy status to other drugs, medicaments and biological substances
CPT/HCPCS: 93005; 94640; 99285; 96374; 36415; 82553; 82550; 84702; 85025; 80053; 84484; 71275; 93010; J3490; J1885; J7512; J7620

== ENCOUNTER → 2018-08-07 | Outpatient (CLI) | payer BC ==
--- NOTE | 2018-08-07 12:45 | RADIOLOGY REPORT (SQ) ---
EXAM DESCRIPTION: BARIUM SWALLOW ESOPHAGUS COMPLETED DATE/TIME: 08/07/2018 8:44 am REASON FOR STUDY: DYPHAGIA (R13.10), EPIGASTRIC PAIN (R10.13), GERD (K21.9) R13.10 DYSPHAGIA, UNSPE CIFIED R10.13 EPIGASTRIC PAIN K21.9 GASTRO-ESOPHAGEAL REFLUX DISEASE WITHOUT ESOPHAGITIS COMPARISON: CT angio chest 06/07/2018 TECHNIQUE: Under fluoroscopic guidance, patient ingested effervescent granules followed by thick and thin barium. Fluoroscopic spot images and routine radiographic images acquired and stored on PACS. 12 MM BARIUM TABLET GIVEN: Yes. No significant delay in passage. LIMITATIONS: None. FLUOROSCOPY TIME: FLUORO TIME: 1 minutes 42 seconds 18 series of digital images saved to PACS. FINDINGS: NEUROMUSCULAR COORDINATION OF SWALLOW: Normal. No aspiration. ESOPHAGEAL MOTILITY: Normal peristalsis. No esophageal spasm. ESOPHAGEAL MUCOSA: Mild distal esophageal mucosal irregularity. No distal esophageal stricture or Sc hatzki's ring. GASTRO-ESOPHAGEAL JUNCTION: Small hiatal hernia with unprovoked gastroesophageal reflux to the cervic al esophagus NON-GI TRACT STRUCTURES: No significant finding. OTHER: No other significant finding. IMPRESSION: Small hiatal hernia with unprovoked gastroesophageal reflux to the cervical esophagus. Mild distal esophageal mucosal irregularity. Patient swallowed a 12 mm barium tablet without difficulty COMMENT: Quality ID 145: Final reports for procedures using fluoroscopy that document radiation exp osure indices, or exposure time and number of fluorographic images (if radiation exposure indices are not available) TECHNICAL DOCUMENTATION: JOB ID: [id number] [employer]- All Rights Reserved Reading location - IP/workstation name: [facility]
== END ==
LOC: RAD 08:00
PROVIDERS: ATTEND Internal Medicine Gastroenterology
DX: K44.9 Diaphragmatic hernia without obstruction or gangrene (principal); R13.10 Dysphagia, unspecified; K21.9 Gastro-esophageal reflux disease without esophagitis; R10.13 Epigastric pain
CPT/HCPCS: 74220

== ENCOUNTER 2018-08-12 13:48 | Inpatient (IN) | payer BC ==
[2018-08-12] MEDS ORDERED: ONDANSETRON 4 MG TAB.RAPDIS ONE (14:40)
[2018-08-12] MEDS ORDERED: FENTANYL CITRATE INJ/PF 100 MCG/2 ML AMPUL IV ONE ×2 (14:49→17:40)
[2018-08-12] MEDS ORDERED: FAMOTIDINE INJ/PF 20 MG/2 ML SDV IV ONE (14:49)
--- NOTE | 2018-08-12 14:52 | ER Document Report ---
ED Medical Screen (RME) - General Chief Complaint: Chest Pain Stated Complaint: CHEST TIGHTNESS, SHORT OF BREATH, WEAKNESS Time Seen by Provider: 08/12/18 14:47 Notes: 28 years old female who had a colonoscopy this morning presents with abdominal pain particularly over the upper abdomen associated with nausea and projectile vomiting. Fever and chills. On examination On examination patient is shivering, on moderate to severe distress, abdominal tenderness over the upper abdomen. TRAVEL OUTSIDE OF THE [place] IN LAST 30 DAYS: No - Related Data Allergies/Adverse Reactions: amoxicillin Allergy (Verified 08/12/18 13:53) clindamycin [Clindamycin] Allergy (Verified 08/12/18 13:53) metoclopramide [From Reglan] Allergy (Verified 08/12/18 13:53) Past Medical History - Past Medical History Cardiac Medical History: Denies: Hx Hypercholesterolemia, Hx Hypertension Pulmonary Medical History: Reports: Hx Asthma Neurological Medical History: Reports: Hx Migraine Renal/ Medical History: Denies: Hx Peritoneal Dialysis GI Medical History: Reports: Hx Gastroesophageal Reflux Disease Skin Medical History: Reports Hx Eczema Past Surgical History: Reports: Hx Section - x2, Hx Cholecystectomy - Immunizations Immunizations up to date: Yes Hx Diphtheria, Pertussis, Tetanus Vaccination: Yes - 2016 History of Influenza Vaccine for 07/2017 - 12/2017 Season: Yes Influenza Administration Date for 07/2017 - 12/2017 Season: 07/15/17 Physical Exam - Vital signs Vitals: Temp Pulse Resp BP Pulse Ox 97.8 F 113 H 14 137/79 H 99 08/12/18 14:08 08/12/18 14:08 08/12/18 14:08 08/12/18 14:08 08/12/18 14:08 Course - Vital Signs Vital signs: Temp Pulse Resp BP Pulse Ox 97.8 F 113 H 14 137/79 H 99 08/12/18 14:08 08/12/18 14:08 08/12/18 14:08 08/12/18 14:08 08/12/18 14:08 Doctor's Discharge - Discharge Referrals: SUSHMA CASTILLO MD [Primary Care Provider] - Follow up as needed
[2018-08-12 15:44] LABS: HEMATOCRIT 34.6 % (36.0-47.0); HEMOGLOBIN 10.9 g/dL (12.0-15.5); MEAN CORPUSCULAR HEMOGLOBIN 20.8 pg (27.0-33.4); MEAN CORPUSCULAR HGB CONC 31.6 g/dL (32.0-36.0); MEAN CORPUSCULAR VOLUME 66 fl (80-97); PLATELET COUNT 444 10^3/uL (150-450); RED BLOOD COUNT 5.26 10^6/uL (3.72-5.28); RED CELL DISTRIBUTION WIDTH 16.2 % (11.5-14.0); WHITE BLOOD COUNT 15.8 10^3/uL (4.0-10.5)
--- NOTE | 2018-08-12 15:45 | ER Document Report ---
ED General - General TRAVEL OUTSIDE OF THE [place] IN LAST 30 DAYS: No <JESSI JACOB - Last Filed: 08/12/18 18:32> <STAR SETHI - Last Filed: 08/12/18 18:43> - General Chief Complaint: Chest Pain Stated Complaint: CHEST TIGHTNESS, SHORT OF BREATH, WEAKNESS Time Seen by Provider: 08/12/18 14:47 - HPI Notes: Patient is a 28-year-old female with a history of asthma and eczema who presents to the ED complaining of regular chest pain described as a tightness, dyspnea on exertion, hemoptysis, occasional dry cough over the last 2 days. Patient states that she does have chills as well. She did have a colonoscopy performed this morning and has had a mild generalized abdominal discomfort since then, but primarily to the epigastrium. Patient patient states that she is still able to eat and drink, but does have associated nausea/vomiting that started today. She is urinating normally and having normal bowel movements. She has not had any other vaginal discharge, odor, or bleeding. Her pains do not radiate. Denies any headache, fever, neck pain, changes in vision/speech/ mentation/hearing, URI, sore throat, palpitations, syncope, diarrhea, urinary retention, dysuria, hematuria, loss of control of bowel or bladder, numbness/ tingling, saddle anesthesia, muscle paralysis/weakness, or rash. (JESSI JACOB) - Related Data Allergies/Adverse Reactions: amoxicillin Allergy (Verified 08/12/18 13:53) clindamycin [Clindamycin] Allergy (Verified 08/12/18 13:53) metoclopramide [From Reglan] Allergy (Verified 08/12/18 13:53) Past Medical History - Social History Smoking Status: Never Smoker Chew tobacco use (# tins/day): No Frequency of alcohol use: None Drug Abuse: None Family History: Reviewed & Not Pertinent Patient has suicidal ideation: No Patient has homicidal ideation: No - Past Medical History Cardiac Medical History: Denies: Hx Hypercholesterolemia, Hx Hypertension Pulmonary Medical History: Reports: Hx Asthma Neurological Medical History: Reports: Hx Migraine Renal/ Medical History: Denies: Hx Peritoneal Dialysis GI Medical History: Reports: Hx Gastroesophageal Reflux Disease Skin Medical History: Reports Hx Eczema Past Surgical History: Reports: Hx Section - x2, Hx Cholecystectomy - Immunizations Immunizations up to date: Yes Hx Diphtheria, Pertussis, Tetanus Vaccination: Yes - 2017 <CECILROBERTN - Last Filed: 08/12/18 18:32> Review of Systems - Review of Systems -: Yes All other systems reviewed and negative <JESSI JACOB - Last Filed: 08/12/18 18:32> Physical Exam <CECILJESSI - Last Filed: 08/12/18 18:32> <SETHISTAR - Last Filed: 08/12/18 18:43> - Vital signs Vitals: Temp Pulse Resp BP Pulse Ox 97.8 F 113 H 14 137/79 H 99 08/12/18 14:08 08/12/18 14:08 08/12/18 14:08 08/12/18 14:08 08/12/18 14:08 - Notes Notes: PHYSICAL EXAMINATION: GENERAL: Well-appearing, well-nourished and in no acute distress, but does appear to be shivering minimally. Answers questions appropriately. HEAD: Atraumatic, normocephalic. EYES: Pupils equal round and reactive to light, extraocular movements intact, sclera anicteric, conjunctiva are normal. ENT: Nares patent and without discharge. oropharynx clear without exudates. No tonsilar hypertrophy or erythema. Moist mucous membranes. NECK: Normal range of motion, supple without lymphadenopathy. No rigidity/ meningismus. LUNGS: Breath sounds clear to auscultation bilaterally and equal. No wheezes rales or rhonchi. + tachypnea around 24 HEART: Tachycardic 120's. Regular rate and rhythm without murmurs, rubs, gallops. ABDOMEN: Soft, nondistended abdomen. No guarding, no rebound. No masses appreciated. Normal bowel sounds present. No CVA tenderness bilaterally. + mild generalized tenderness, but primarily to epigastrum. Neg Mixon. No tenderness at McBurney. Musculoskeletal: FROM to passive/active. Strength 5+/5. Extremities: No cyanosis, clubbing, or edema b/l. Peripheral pulses 2+. Capillary refill less than 3 seconds. NEUROLOGICAL: Cranial nerves grossly intact. Normal speech, normal gait. PSYCH: Normal mood, normal affect. SKIN: Warm, Dry, normal turgor, no rashes or lesions noted. (JESSI JACOB) Course - Laboratory Result Diagrams: 08/12/18 15:10 08/12/18 15:10 <JESSI JACOB - Last Filed: 08/12/18 18:32> - Laboratory Result Diagrams: 08/12/18 15:10 08/12/18 15:10 <STAR SETHI - Last Filed: 08/12/18 18:43> - Re-evaluation Re-evalutation: 08/12/18 15:53 Pt is tachypneic and tachycardic. Reviewed with Dr. Sethi. we will obtain labs, give fluids, and obtain a Chest CTA with abd CT due to recent colonoscopy. 08/12/18 18:26 Patient is a 28-year-old female with tachycardia and tachypnea with an elevated white blood cell count who presents to the ED with a pneumonia at the left lung. See lab results. CTA of the chest was otherwise unremarkable aside from the noted patchy infiltrate. CT of the abdomen/pelvis was unremarkable. Patient is tolerating p.o. at this time. We will start her on Levaquin IV. Patient has been receiving fluid boluses as well and she will be started on a maintenance rate. I did call and speak with our hospitalist, Dr. Johns, who accepted patient for admit. Pt in agreement with plan. (JESSI JACOB) 08/12/18 18:39 Personally evaluated this patient and agree with the above plan of care. Patient had complained of hemoptysis. Her d-dimer was elevated and CT Hermila obtained to evaluate for pulmonary embolism. patient has a large pneumonia. She is meeting sepsis criteria. Blood cultures were obtained. Patient started on antibiotics admitted to the hospital. (STAR SETHI) - Vital Signs Vital signs: Temp Pulse Resp BP Pulse Ox 97.8 F 113 H 14 137/79 H 99 08/12/18 14:08 08/12/18 14:08 08/12/18 14:08 08/12/18 14:08 08/12/18 14:08 - Laboratory Laboratory results interpreted by me: 08/12/18 08/12/18 08/12/18 15:10 15:10 15:10 WBC 15.8 H Hgb 10.9 L Hct 34.6 L MCV 66 L MCH 20.8 L MCHC 31.6 L RDW 16.2 H Seg Neuts % (Manual) 91 H Band Neutrophils % 1 L Lymphocytes % (Manual) 7 L Monocytes % (Manual) 0 L Abs Neuts (Manual) 14.5 H Abs Monocytes (Manual) 0.0 L D-Dimer 1.81 H BUN 3 L Ammonia 08/12/18 15:45 WBC Hgb Hct MCV MCH MCHC RDW Seg Neuts % (Manual) Band Neutrophils % Lymphocytes % (Manual) Monocytes % (Manual) Abs Neuts (Manual) Abs Monocytes (Manual) D-Dimer BUN Ammonia < 8.7 L Discharge - Discharge Admitting Provider: Hospitalist - Dr. Johns Unit Admitted: Telemetry <JESSI JACOB - Last Filed: 08/12/18 18:32> <STAR SETHI - Last Filed: 08/12/18 18:43> - Discharge Clinical Impression: Pneumonia involving left lung Qualifiers: Pneumonia type: due to unspecified organism Lung location: unspecified part of lung Qualified Code(s): J18.9 - Pneumonia, unspecified organism Condition: Stable Disposition: ADMITTED INPATIENT
[2018-08-12 16:02] LABS: ABSOLUTE LYMPHOCYTES# (MANUAL) 1.3 10^3/uL (0.5-4.7); ABSOLUTE NEUTROPHILS# (MANUAL) 14.5 10^3/uL (1.7-8.2); ANISOCYTOSIS 1+; BAND NEUTROPHILS % (MANUAL) 1 % (3-5); BASOPHILS % (MANUAL) 0 % (0-2); EOSINOPHILS % (MANUAL) 0 % (0-6); LYMPHOCYTES % (MANUAL) 7 % (13-45); MONOCYTES % (MANUAL) 0 % (3-13); SEGMENTED NEUTROPHILS % (MAN) 91 % (42-78); TOTAL CELLS COUNTED 100
[2018-08-12 16:03] LABS: OVALOCYTES SLIGHT; PLATELET COMMENT ADEQUATE; POIKILOCYTOSIS SLIGHT; TARGET CELLS SLIGHT
[2018-08-12 16:06] LABS: ALANINE AMINOTRANSFERASE 20 U/L (9-52); ALBUMIN 3.8 g/dL (3.5-5.0); ALKALINE PHOSPHATASE 94 U/L (38-126); ANION GAP 10 (5-19); ASPARTATE AMINO TRANSFERASE 17 U/L (14-36); BILIRUBIN,DIRECT 0.2 mg/dL (0.0-0.4); BILIRUBIN,TOTAL 0.5 mg/dL (0.2-1.3); BLOOD UREA NITROGEN 3 mg/dL (7-20); CALCIUM 9.2 mg/dL (8.4-10.2); CARBON DIOXIDE 26 mmol/L (22-30); CHLORIDE 105 mmol/L (98-107); GLUCOSE 107 mg/dL (75-110); LIPASE 31.4 U/L (23-300); POTASSIUM 4.2 mmol/L (3.6-5.0); SODIUM 141.2 mmol/L (137-145); TOTAL PROTEIN 7.1 g/dL (6.3-8.2)
[2018-08-12] MEDS: NORMAL SALINE 1000 ML 1,000 ML IV PRN ×2 (16:46→18:57)
--- NOTE | 2018-08-12 17:57 | RADIOLOGY REPORT (SQ) ---
EXAM DESCRIPTION: CTA CHEST COMPLETED DATE/TIME: 08/12/2018 5:40 pm REASON FOR STUDY: RAO, CP, tachycardic COMPARISON: CTA of the chest dated 06/07/2018 TECHNIQUE: CT scan of the chest performed using helical scanning technique with dynamic intravenous contrast injection. Images reviewed with lung, soft tissue and bone windows. Reconstructed coronal and sagittal MPR images reviewed. Additional 3 dimensional post-processing performed to develop Maximal Intensity Projection images (PR P). All images stored on PACS. All CT scanners at this facility use dose modulation, iterative reconstruction, and/or weight based d osing when appropriate to reduce radiation dose to as low as reasonably achievable (ALARA). [facility]: Dose Right [facility]: CareDose [facility]: Dose Right [facility]: Teradose 4D [facility]: Exchangery CONTRAST TYPE AND DOSE: contrast/concentration: Isovue 350.00 mg/ml; Total Contrast Delivered: 157.0 ml; Total Saline Delivered: 167.0 ml Contrast bolus optimized for the pulmonary arteries. Not diagnostic for the aorta. RENAL FUNCTION: None required. The patient is less than 50 years old. RADIATION DOSE: CT Rad equipment meets quality standard of care and radiation dose reduction techniq ues were employed. CTDIvol: 14.8 - 63.8 mGy. DLP: 3909 mGy-cm. . LIMITATIONS: None. FINDINGS: LUNGS AND PLEURA: Patchy airspace consolidation is identified in the left lower lobe with less pronounced airspace consolidation in the remainder of the left lung. No pleural effusions are i dentified. The right lung is clear and well expanded. AORTA AND GREAT VESSELS: No aneurysm. Contrast bolus not optimized for the aorta. HEART: No pericardial effusion. No significant coronary artery calcifications. PULMONARY ARTERIES: No emboli visualized in the main pulmonary arteries or the segmental branches. HILAR AND MEDIASTINAL STRUCTURES: No identified masses or abnormal nodes. HARDWARE: None in the chest. UPPER ABDOMEN: See results under abdominal CT scan THYROID AND OTHER SOFT TISSUES: No masses. No adenopathy. BONES: No acute or significant finding. 3D MIPS: Confirm above findings. OTHER: No other significant finding. IMPRESSION: No evidence for pulmonary embolic disease. Patchy airspace consolidation is identified in the left lower lobe with less pronounced airspace consolidation in the remainder of the left lung. The appearance would suggest a patchy pneumonic infiltrate. No pleural effusions are identified. The right lung is clear and well expanded. Other findings as noted above COMMENT: Quality ID # [id number]: Final reports with documentation of one or more dose reduction techniques (e.g., Automated exposure control, adjustment of the mA and/or kV according to patient size, use of iterative reconstruction technique) TECHNICAL DOCUMENTATION: JOB ID: [id number] [employer]- All Rights Reserved Reading location - IP/workstation name: [email or web address]
--- NOTE | 2018-08-12 18:05 | RADIOLOGY REPORT (SQ) ---
EXAM DESCRIPTION: CT ABD/PELVIS WITH IV ONLY COMPLETED DATE/TIME: 08/12/2018 5:40 pm REASON FOR STUDY: Post colonoscopy acute abdominal pain COMPARISON: None. TECHNIQUE: CT scan of the abdomen and pelvis performed using helical scanning technique with dynamic intravenous contrast injection. No oral contrast. Images reviewed with lung, soft tissue, and bone windows. Reconstructed coronal and sagittal MPR images reviewed. Delayed images for evaluation of the urinary system also acquired. All images stored on PACS. All CT scanners at this facility use dose modulation, iterative reconstruction, and/or weight based d osing when appropriate to reduce radiation dose to as low as reasonably achievable (ALARA). [facility]: Dose Right [facility]: CareDose [facility]: Dose Right [facility]: Teradose 4D [facility]: Seahorse CONTRAST TYPE AND DOSE: 75 mL Omnipaque 350 RENAL FUNCTION: None required. The patient is less than 50 years old. RADIATION DOSE: . LIMITATIONS: None. FINDINGS: LOWER CHEST: No significant findings. No nodules or infiltrates. LIVER: Normal size. No masses. No dilated ducts. SPLEEN: Normal size. No focal lesions. PANCREAS: No masses. No significant calcifications. No adjacent inflammation or peripancreatic fluid collections. Pancreatic duct not dilated. GALLBLADDER: Status post cholecystectomy. ADRENAL GLANDS: No significant masses or asymmetry. RIGHT KIDNEY AND URETER: No solid masses. No significant calcifications. No hydronephrosis or hyd roureter. LEFT KIDNEY AND URETER: No solid masses. No significant calcifications. No hydronephrosis or hydr oureter. AORTA AND VESSELS: No aneurysm. No dissection. Renal arteries, SMA, celiac without stenosis. RETROPERITONEUM: No retroperitoneal adenopathy, hemorrhage or masses. BOWEL AND PERITONEAL CAVITY: No masses or inflammatory changes. No free fluid or peritoneal masses. APPENDIX: Normal. PELVIS: No mass. No free fluid. Normal bladder. ABDOMINAL WALL: No masses. No hernias. BONES: No significant or acute findings. OTHER: No other significant finding. IMPRESSION: NO SIGNIFICANT OR ACUTE FINDING IN THE ABDOMEN OR PELVIS ON CT SCAN WITH IV CONTRAST. TECHNICAL DOCUMENTATION: JOB ID: [id number] Quality ID # [id number]: Final reports with documentation of one or more dose reduction techniques (e.g., Au tomated exposure control, adjustment of the mA and/or kV according to patient size, use of iterative reconstruction technique) 2010 [employer]- All Rights Reserved Reading location - IP/workstation name: [email or web address]
[2018-08-12] MEDS ORDERED: LEVOFLOXACIN 750 MG/D5W RTU 750 MG/150 ML RTUPB IV ONE (18:20)
[2018-08-12] MEDS ORDERED: ACETAMINOPHEN 325 MG TABLET PO PRN (18:39)
[2018-08-12 18:45] LABS: APPEARANCE,URINE SLIGHTLY-CLOUDY; BILIRUBIN,URINE NEGATIVE (NEGATIVE); COLOR,URINE YELLOW; GLUCOSE, URINE NEGATIVE (NEGATIVE); KETONES,URINE TRACE mg/dL (NEGATIVE); LEUKOCYTE ESTERASE,URINE NEGATIVE (NEGATIVE); NITRITE,URINE NEGATIVE (NEGATIVE); PROTEIN,URINE NEGATIVE (NEGATIVE); UROBILINOGEN,URINE NEGATIVE mg/dL (<2.0)
--- NOTE | 2018-08-12 18:58 | PDOC H&P ---
History of Present Illness Admission Date/PCP: 08/12/18 18:37 Patient complains of: Shortness of breath History of Present Illness: KARELY TREVINO is a 28 year old female who underwent a colonoscopy in knife cutter office today. Patient had undergone an EGD 2 weeks ago and was diagnosed with eosinophilic esophagitis. She did have a biopsy to rule out colonic esophagitis as well today. She was mildly tachycardic and short of breath. She has a history of asthma and uses Symbicort and Spiriva for this. She is a non-smoker. Her d-dimer was elevated her white count was 15,000 and a CTA was performed which ruled out pulmonary embolism but did find a patchy infiltrate in the left lower lobe. Patient saturations were 100% but she was tachycardic in the 120s. It is unclear if the tachycardia is due to the underlying pneumonia or from possible volume depletion from her colonoscopy prep. Because of the tachycardia patient is admitted for IV antibiotics and IV hydration. Past Medical History Cardiac Medical History: Denies: Hyperlipidema, Hypertension Pulmonary Medical History: Reports: Asthma EENT Medical History: Reports: None Neurological Medical History: Reports: Migraine GI Medical History: Reports: Gastroesophageal Reflux Disease, Other - Eosinophilic esophagitis Skin Medical History: Reports: Eczema Past Surgical History Past Surgical History: Reports: Section - x2, Cholecystectomy, Other - EGD 2 weeks ago, colonoscopy this morning Social History Smoking Status: Never Smoker Frequency of Alcohol Use: None Hx Recreational Drug Use: No - Advance Directive Resuscitation Status: Full Code Family History Family History: CAD - Mother, Hypertension - Hypertension Parental Family History Reviewed: Yes Children Family History Reviewed: Yes Sibling(s) Family History Reviewed.: Yes Medication/Allergy Allergies/Adverse Reactions: amoxicillin Allergy (Verified 08/12/18 13:53) clindamycin [Clindamycin] Allergy (Verified 08/12/18 13:53) metoclopramide [From Reglan] Allergy (Verified 08/12/18 13:53) Review of Systems All systems: reviewed and no additional remarkable complaints except as stated - Dysphasia shortness of breath cough remainder of the complete review of systems is negative Physical Exam Vital Signs: Temp Pulse Resp BP Pulse Ox 97.8 F 113 H 14 137/79 H 99 08/12/18 14:08 08/12/18 14:08 08/12/18 14:08 08/12/18 14:08 08/12/18 14:08 He is back General appearance: PRESENT: no acute distress, well-developed, well-nourished Head exam: PRESENT: atraumatic, normocephalic Eye exam: PRESENT: conjunctiva pink, EOMI, PERRLA. ABSENT: scleral icterus Mouth exam: PRESENT: moist, tongue midline Neck exam: ABSENT: carotid bruit, JVD, lymphadenopathy, thyromegaly Respiratory exam: PRESENT: clear to auscultation bernabe. ABSENT: rales, rhonchi, wheezes Cardiovascular exam: PRESENT: RRR. ABSENT: diastolic murmur, rubs, systolic murmur Pulses: PRESENT: normal dorsalis pedis pul GI/Abdominal exam: PRESENT: normal bowel sounds, soft. ABSENT: distended, guarding, mass, organolmegaly, rebound, tenderness Rectal exam: PRESENT: deferred Extremities exam: PRESENT: full ROM. ABSENT: calf tenderness, clubbing, pedal edema Neurological exam: PRESENT: alert, awake, oriented to person, oriented to place , oriented to time, oriented to situation, CN II-XII grossly intact. ABSENT: motor sensory deficit Psychiatric exam: PRESENT: appropriate affect, normal mood. ABSENT: homicidal ideation, suicidal ideation Skin exam: PRESENT: dry, intact, warm. ABSENT: cyanosis, rash Results Impressions: Abdomen/Pelvis CT 08/12/18 14:49 IMPRESSION: NO SIGNIFICANT OR ACUTE FINDING IN THE ABDOMEN OR PELVIS ON CT SCAN WITH IV CONTRAST. Chest/Abdomen CTA 08/12/18 15:36 IMPRESSION: No evidence for pulmonary embolic disease. Patchy airspace consolidation is identified in the left lower lobe with less pronounced airspace consolidation in the remainder of the left lung. The appearance would suggest a patchy pneumonic infiltrate. No pleural effusions are identified. The right lung is clear and well expanded. Other findings as noted above Assessment & Plan - Diagnosis (1) Pneumonia involving left lung Qualifiers: Pneumonia type: due to unspecified organism Lung location: lower lobe of lung Qualified Code(s): J18.1 - Lobar pneumonia, unspecified organism Is this a current diagnosis for this admission?: Yes Plan: IV Rocephin and azithromycin. Pulmonary toilet. Repeat CBC in a.m. reassess patient's hemodynamics if tachycardia improves can be discharged on p.o. antibiotics. (2) Asthma Plan: Currently patient has no audible wheezing her saturations are 100%. CT did show a left lower lobe infiltrate consistent with pneumonitis and she has an elevated white count. Will place patient on IV Solu-Medrol for both her esophagitis and asthma but at 40 mg every 12 hours of Solu-Medrol. And use nebulizing treatments as needed (3) Tachycardia Plan: May be volume depletion due to colon prep patient on IV lactated Ringer's at 125 overnight reassess in the morning (4) Eosinophilic esophagitis Plan: Recently diagnosed. Patient was to start on budesonide will use IV Solu-Medrol on the hospital due to asthma (5) GERD (gastroesophageal reflux disease) Plan: Budesonide was prescribed by GI but not filled yet. Patient will be on IV Solu- Medrol while in the spittle can begin budesonide post discharge. Continue with PPI twice daily - Time Time Spent: 50 to 70 Minutes Anticipated discharge: Home - Inpatient Certification Based on my medical assessment, after consideration of the patient's comorbidities, presenting symptoms, or acuity I expect that the services needed warrant INPATIENT care.: Yes I certify that my determination is in accordance with my understanding of Medicare's requirements for reasonable and necessary INPATIENT services [42 CFR 412.3e].: Yes Medical Necessity: Need Close Monitoring Due to Risk of Patient Decompensation
[2018-08-12] MEDS ORDERED: CEFTRIAXONE SODIUM 1,000 MG in DEXTROSE 5%-WATER 50 ML IV SCH (20:00)
[2018-08-12] MEDS: RINGERS SOLUTION,LACTATED 1,000 ML IV PRN (21:21)
--- NOTE | 2018-08-12 21:57 | EKG REPORT ---
SEVERITY:- OTHERWISE NORMAL ECG - SINUS TACHYCARDIA : Confirmed by: Emily Nichols MD 12-Aug-2018 21:55:41
[2018-08-12] MEDS: CEFTRIAXONE SODIUM 1,000 MG in DEXTROSE 5%-WATER 50 ML IV SCH (22:52)
[2018-08-12] MEDS: METHYLPREDNISOLONE INJ 40 MG/1 ML SDV IV SCH (22:52)
[2018-08-12] MEDS: ONDANSETRON HCL INJ/PF 4 MG/2 ML SDV IV PRN (22:52)
[2018-08-12] MEDS: IPRATROPIUM/ALBUTEROL 0.5-2.5 MG/3 ML AMPUL NEB PRN (23:31)
[2018-08-12] MEDS: AZITHROMYCIN 500 MG in DEXTROSE 5%-WATER 250 ML IV SCH (23:57)
[2018-08-13] MEDS: LANSOPRAZOLE 30 MG TAB.RAP.DR PO SCH ×2 (05:12→17:01)
[2018-08-13] MEDS: IPRATROPIUM/ALBUTEROL 0.5-2.5 MG/3 ML AMPUL NEB PRN ×3 (05:41→13:40)
[2018-08-13 07:05] LABS: HEMATOCRIT 32.3 % (36.0-47.0); HEMOGLOBIN 9.9 g/dL (12.0-15.5); MEAN CORPUSCULAR HEMOGLOBIN 20.3 pg (27.0-33.4); MEAN CORPUSCULAR HGB CONC 30.8 g/dL (32.0-36.0); MEAN CORPUSCULAR VOLUME 66 fl (80-97); PLATELET COUNT 392 10^3/uL (150-450); RED BLOOD COUNT 4.91 10^6/uL (3.72-5.28); RED CELL DISTRIBUTION WIDTH 15.8 % (11.5-14.0); WHITE BLOOD COUNT 19.7 10^3/uL (4.0-10.5)
[2018-08-13 07:08] LABS: ANION GAP 11 (5-19); BLOOD UREA NITROGEN 5 mg/dL (7-20); CALCIUM 9.1 mg/dL (8.4-10.2); CARBON DIOXIDE 23 mmol/L (22-30); CHLORIDE 107 mmol/L (98-107); GLUCOSE 141 mg/dL (75-110); POTASSIUM 4.2 mmol/L (3.6-5.0); SODIUM 141.4 mmol/L (137-145)
[2018-08-13] MEDS: RINGERS SOLUTION,LACTATED 1,000 ML IV PRN (07:18)
[2018-08-13 07:28] LABS: ABSOLUTE LYMPHOCYTES# (MANUAL) 0.4 10^3/uL (0.5-4.7); ABSOLUTE MONOCYTES # (MANUAL) 0.2 10^3/uL (0.1-1.4); ABSOLUTE NEUTROPHILS# (MANUAL) 19.1 10^3/uL (1.7-8.2); BASOPHILS % (MANUAL) 0 % (0-2); EOSINOPHILS % (MANUAL) 0 % (0-6); LYMPHOCYTES % (MANUAL) 2 % (13-45); MONOCYTES % (MANUAL) 1 % (3-13); SEGMENTED NEUTROPHILS % (MAN) 97 % (42-78); TOTAL CELLS COUNTED 100
[2018-08-13 07:29] LABS: ANISOCYTOSIS SLIGHT; HYPOCHROMASIA 2+; OVALOCYTES 1+; PLATELET COMMENT ADEQUATE; POIKILOCYTOSIS 1+
[2018-08-13] MEDS: ONDANSETRON HCL INJ/PF 4 MG/2 ML SDV IV PRN ×2 (08:08→21:04)
[2018-08-13] MEDS ORDERED: AZITHROMYCIN INJ 500 MG VIAL IV SCH (10:00)
[2018-08-13] MEDS ORDERED: CEFTRIAXONE 1 GM/D5W RTU 1 GM/50 ML RTUPB IV SCH (10:00)
[2018-08-13] MEDS: METHYLPREDNISOLONE INJ 40 MG/1 ML SDV IV SCH ×2 (10:03→21:03)
[2018-08-13] MEDS ORDERED: (PENDING PHARMACY ID) (Citalopram Hydrobromide [Celexa 40 Mg Tablet] 40 MG) PO PRN (10:18)
[2018-08-13] MEDS ORDERED: DICYCLOMINE HCL 20 MG TABLET PO PRN (10:18)
[2018-08-13] MEDS ORDERED: CITALOPRAM HYDROBROMIDE 20 MG TABLET PO PRN (11:02)
[2018-08-13] MEDS: HYDROXYZINE PAMOATE 25 MG CAPSULE PO PRN (11:23)
--- NOTE | 2018-08-13 12:21 | PDOC PROGRESS REPORT ---
Subjective Progress Note for:: 08/13/18 Subjective:: KARELY TREVINO is a 28 year old female who underwent a colonoscopy in [employer] [facility] office today. Patient had undergone an EGD 2 weeks ago and was diagnosed with eosinophilic esophagitis. She did have a biopsy to rule out colonic esophagitis as well today. She was mildly tachycardic and short of breath. She has a history of asthma and uses Symbicort and Spiriva for this. She is a non-smoker. Her d-dimer was elevated her white count was 15,000 and a CTA was performed which ruled out pulmonary embolism but did find a patchy infiltrate in the left lower lobe. Patient saturations were 100% but she was tachycardic in the 120s. It is unclear if the tachycardia is due to the underlying pneumonia or from possible volume depletion from her colonoscopy prep. Because of the tachycardia patient is admitted for IV antibiotics and IV hydration Patient comfortable on room air. No longer tachycardic white count elevated due to steroid effect afebrile. Reason For Visit: PNEUMONIA Physical Exam Vital Signs: Temp Pulse Resp BP Pulse Ox 98.5 F 111 H 18 119/66 97 08/13/18 10:07 08/13/18 10:07 08/13/18 10:07 08/13/18 10:07 08/13/18 10:07 Intake & Output 08/12/18 08/13/18 08/14/18 06:59 06:59 06:59 Intake Total 3450 480 Balance 3450 480 Weight 123.9 kg General appearance: PRESENT: no acute distress, well-developed, well-nourished Head exam: PRESENT: atraumatic, normocephalic Neck exam: ABSENT: carotid bruit, JVD, lymphadenopathy, thyromegaly Respiratory exam: PRESENT: accessory muscle use Cardiovascular exam: PRESENT: RRR. ABSENT: diastolic murmur, rubs, systolic murmur GI/Abdominal exam: PRESENT: normal bowel sounds, soft. ABSENT: distended, guarding, mass, organolmegaly, rebound, tenderness Extremities exam: PRESENT: full ROM. ABSENT: calf tenderness, clubbing, pedal edema Results Laboratory Results: 08/13/18 06:36 08/13/18 06:36 08/13/18 08/13/18 08/13/18 06:36 06:36 06:36 WBC 19.7 H RBC 4.91 Hgb 9.9 L Hct 32.3 L MCV 66 L MCH 20.3 L MCHC 30.8 L RDW 15.8 H Plt Count 392 Seg Neutrophils % Not Reportable Lymphocytes % Not Reportable Monocytes % Not Reportable Eosinophils % Not Reportable Basophils % Not Reportable Absolute Neutrophils Not Reportable Absolute Lymphocytes Not Reportable Absolute Monocytes Not Reportable Absolute Eosinophils Not Reportable Absolute Basophils Not Reportable Sodium 141.4 Potassium 4.2 Chloride 107 Carbon Dioxide 23 Anion Gap 11 BUN 5 L Creatinine 0.63 Est GFR ( Amer) > 60 Est GFR (Non-Af Amer) > 60 Glucose 141 H Calcium 9.1 Magnesium 1.9 TSH 0.48 Impressions: Abdomen/Pelvis CT 08/12/18 14:49 IMPRESSION: NO SIGNIFICANT OR ACUTE FINDING IN THE ABDOMEN OR PELVIS ON CT SCAN WITH IV CONTRAST. Chest/Abdomen CTA 08/12/18 15:36 IMPRESSION: No evidence for pulmonary embolic disease. Patchy airspace consolidation is identified in the left lower lobe with less pronounced airspace consolidation in the remainder of the left lung. The appearance would suggest a patchy pneumonic infiltrate. No pleural effusions are identified. The right lung is clear and well expanded. Other findings as noted above Assessment & Plan - Diagnosis (1) Pneumonia involving left lung Qualifiers: Pneumonia type: due to unspecified organism Lung location: lower lobe of lung Qualified Code(s): J18.1 - Lobar pneumonia, unspecified organism Is this a current diagnosis for this admission?: Yes Plan: IV Rocephin and azithromycin. Pulmonary toilet. Patient hemodynamically stable will provide IV antibiotics for an additional 24 hours and plan discharge in the a.m. (2) Asthma Is this a current diagnosis for this admission?: Yes Plan: Patient is followed by Dr. Lim discussed the case with him regarding patient 's eosinophilic esophagitis. We will have her follow-up with him for adjustment of her asthma treatment based on the eosinophilic esophagitis diagnosis. (3) Tachycardia Is this a current diagnosis for this admission?: Yes Plan: Resolved with hydration (4) Eosinophilic esophagitis Is this a current diagnosis for this admission?: Yes Plan: Follow-up with gastroenterology and with Dr. Lim of pulmonary (5) GERD (gastroesophageal reflux disease) Is this a current diagnosis for this admission?: Yes Plan: Budesonide was prescribed by GI but not filled yet. Patient will be on IV Solu- Medrol while in the spittle can begin budesonide post discharge. Continue with PPI twice daily - Time Time Spent with patient: 15-24 minutes Anticipated discharge: Home Within: within 24 hours
[2018-08-13] MEDS: NORMAL SALINE 1000 ML 1,000 ML IV PRN ×2 (13:56→21:04)
[2018-08-13] MEDS: CEFTRIAXONE SODIUM 1,000 MG in DEXTROSE 5%-WATER 50 ML IV SCH (17:02)
[2018-08-13] MEDS ORDERED: BUDESONIDE/FORMOTEROL 160-4.5 MCG 60 PUFF/6 GM MDI IH SCH (18:00)
[2018-08-13] MEDS ORDERED: (PENDING PHARMACY ID) (Tiotropium Bromide [Spiriva Respimat] 2 PUFF) IH SCH (18:00)
[2018-08-13] MEDS: AZITHROMYCIN 500 MG in DEXTROSE 5%-WATER 250 ML IV SCH (21:04)
[2018-08-13] MEDS ORDERED: FAMOTIDINE 20 MG TABLET PO SCH (22:00)
[2018-08-13] MEDS ORDERED: (PENDING PHARMACY ID) (Ranitidine Hcl [Zantac] 300 MG) PO SCH (22:00)
[2018-08-14] MEDS: IPRATROPIUM/ALBUTEROL 0.5-2.5 MG/3 ML AMPUL NEB PRN ×2 (01:20→07:29)
[2018-08-14] MEDS: HYDROXYZINE PAMOATE 25 MG CAPSULE PO PRN (02:18)
[2018-08-14] MEDS: LANSOPRAZOLE 30 MG TAB.RAP.DR PO SCH (05:32)
[2018-08-14] MEDS: NORMAL SALINE 1000 ML 1,000 ML IV PRN (05:33)
[2018-08-14 08:51] VITALS: BP 119/66
--- NOTE | 2018-08-14 08:51 | PDOC DISCHARGE SUMMARY ---
General - Admit/Disc Date/PCP Admission Date/Primary Care Provider: 08/12/18 18:37 Discharge Date: 08/14/18 - Discharge Diagnosis (1) Pneumonia involving left lung Is this a current diagnosis for this admission?: Yes (2) Asthma Is this a current diagnosis for this admission?: Yes (3) Tachycardia Is this a current diagnosis for this admission?: Yes (4) Eosinophilic esophagitis Is this a current diagnosis for this admission?: Yes (5) GERD (gastroesophageal reflux disease) Is this a current diagnosis for this admission?: Yes - Additional Information Resuscitation Status: Full Code Discharge Diet: As Tolerated Discharge Activity: Activity As Tolerated Prescriptions: Cefdinir [Omnicef 300 mg Capsule] 1 cap PO BID #14 capsule Home Medications: Albuterol Sulfate [Proair HFA] 2 puff IH Q4HP PRN 08/12/18 Budesonide/Formoterol Fumarate [Symbicort 160-4.5 Mcg Inhaler] 2 puff PO BID Citalopram Hydrobromide [Celexa 40 mg Tablet] 40 mg PO DAILYP PRN 08/12/18 Dicyclomine HCl [Bentyl 20 mg Tablet] 20 mg PO DAILYP PRN 08/12/18 Hydroxyzine Pamoate [Vistaril 25 mg Capsule] 25 mg PO DAILYP PRN 08/12/18 Pantoprazole Sodium [Protonix] 80 mg PO DAILY 08/12/18 Ranitidine HCl [Zantac] 300 mg PO QHS 08/12/18 Tiotropium [place] [Spiriva Respimat] 2 puff IH BID 08/12/18 Acetaminophen [Tylenol 325 mg Tablet] 650 mg PO Q4HP PRN tablet 08/14/18 Cefdinir [Omnicef 300 mg Capsule] 1 cap PO BID #14 capsule 08/14/18 History of Present Illness History of Present Illness: KARELY TREVINO is a 28 year old female who underwent a colonoscopy in 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 Patient had undergone an EGD 2 weeks ago and was diagnosed with eosinophilic esophagitis. She did have a biopsy to rule out colonic esophagitis as well today. She was mildly tachycardic and short of breath. She has a history of asthma and uses Symbicort and Spiriva for this. She is a non-smoker. Her d-dimer was elevated her white count was 15,000 and a CTA was performed which ruled out pulmonary embolism but did find a patchy infiltrate in the left lower lobe. Patient saturations were 100% but she was tachycardic in the 120s. Hospital Course Hospital Course: Patient was admitted to medical bed placed on IV Solu-Medrol azithromycin and Rocephin. She did not require oxygen supplementation throughout the hospital stay. Her wheezing subsided although she continued to complain of some slight chest tightness consistent with asthma. Patient was recently diagnosed with eosinophilic esophagitis. She is to start on budesonide in the outpatient setting and therefore was not discharged with any supplemental steroids. She was given a prescription for 7-day course of Omnicef 300 mg twice daily. Physical Exam Vital Signs: Temp Pulse Resp BP Pulse Ox 98.1 F 99 18 140/84 H 96 08/14/18 07:58 08/14/18 07:58 08/14/18 07:58 08/14/18 07:58 08/14/18 07:58 Intake & Output 08/13/18 08/14/18 08/15/18 06:59 06:59 06:59 Intake Total 3450 3838 Output Total 400 Balance 3450 3438 Weight 123.9 kg 123.7 kg General appearance: PRESENT: no acute distress, well-developed, well-nourished Eye exam: PRESENT: conjunctiva pink, EOMI, PERRLA. ABSENT: scleral icterus Neck exam: ABSENT: carotid bruit, JVD, lymphadenopathy, thyromegaly Cardiovascular exam: PRESENT: RRR. ABSENT: diastolic murmur, rubs, systolic murmur GI/Abdominal exam: PRESENT: normal bowel sounds, soft. ABSENT: distended, guarding, mass, organolmegaly, rebound, tenderness Extremities exam: PRESENT: full ROM. ABSENT: calf tenderness, clubbing, pedal edema Results Laboratory Results: 08/13/18 06:36 08/13/18 06:36 Impressions: Abdomen/Pelvis CT 08/12/18 14:49 IMPRESSION: NO SIGNIFICANT OR ACUTE FINDING IN THE ABDOMEN OR PELVIS ON CT SCAN WITH IV CONTRAST. Chest/Abdomen CTA 08/12/18 15:36 IMPRESSION: No evidence for pulmonary embolic disease. Patchy airspace consolidation is identified in the left lower lobe with less pronounced airspace consolidation in the remainder of the left lung. The appearance would suggest a patchy pneumonic infiltrate. No pleural effusions are identified. The right lung is clear and well expanded. Other findings as noted above Qualifiers - * PATIENT BEING DISCHARGED WITH ANY OF THE FOLLOWING DIAGNOSIS: No Plan Time Spent: Greater than 30 Minutes
== END 2018-08-14 09:09 | disposition home or self-care (01) | DRG 195 ==
LOC: ER 13:48 → EH 18:37 → 2N 21:28
PROVIDERS: ADMIT Internal Medicine; ATTEND Internal Medicine
DX: J18.9 Pneumonia, unspecified organism (principal); J45.909 Unspecified asthma, uncomplicated; L30.9 Dermatitis, unspecified; K20.0 Eosinophilic esophagitis; G43.909 Migraine, unspecified, not intractable, without status migrainosus; K21.9 Gastro-esophageal reflux disease without esophagitis; R00.0 Tachycardia, unspecified; Z90.49 Acquired absence of other specified parts of digestive tract; Z82.49 Family history of ischemic heart disease and other diseases of the circulatory system; Z88.0 Allergy status to penicillin; Z88.1 Allergy status to other antibiotic agents
CPT/HCPCS: 36415; 71275; 74177; 80048; 80053; 81001; 81025; 82140; 83605; 83690; 83735; 84443; 84484; 85025; 85379; 87040; 87070; 87086; 87205; 93005; 93010; 94640; 96361; 96374; 96375; 96376; 99285; J0456; J0696; J1956; J2405; J2920; J3010; J3490; J7030; J7060; J7120; J7620; S0028

== ENCOUNTER → 2018-08-23 | Outpatient (CLI) | payer BC ==
--- NOTE | 2018-08-23 08:47 | RADIOLOGY REPORT (SQ) ---
EXAM DESCRIPTION: CHEST PA/LATERAL COMPLETED DATE/TIME: 08/23/2018 8:39 am REASON FOR STUDY: COUGH COMPARISON: Chest CT 06/07/2018 AP chest 12/13/2017 EXAM PARAMETERS: NUMBER OF VIEWS: two views TECHNIQUE: Digital Frontal and Lateral radiographic views of the chest acquired. RADIATION DOSE: NA LIMITATIONS: none FINDINGS: LUNGS AND PLEURA: No opacities, masses or pneumothorax. No pleural effusion. MEDIASTINUM AND HILAR STRUCTURES: No masses or contour abnormalities. HEART AND VASCULAR STRUCTURES: Heart normal size. No evidence for failure. BONES: No acute findings. HARDWARE: None in the chest. OTHER: No other significant finding. IMPRESSION: NO SIGNIFICANT RADIOGRAPHIC FINDING IN THE CHEST. TECHNICAL DOCUMENTATION: JOB ID: [id number] [employer]- All Rights Reserved Reading location - IP/workstation name: [email or web address]
[2018-08-23 08:56] LABS: ABSOLUTE BASOPHILS # (AUTO) 0.1 10^3/uL (0.0-0.2); ABSOLUTE LYMPHOCYTES (AUTO) 1.7 10^3/uL (0.5-4.7); ABSOLUTE MONOCYTES (AUTO) 0.6 10^3/uL (0.1-1.4); ABSOLUTE NEUT (AUTO) 5.9 10^3/uL (1.7-8.2); BASOPHILS % (AUTO) 0.7 % (0-2); EOSINOPHILS % (AUTO) 0.5 % (0-6); HEMATOCRIT 32.1 % (36.0-47.0); HEMOGLOBIN 10.4 g/dL (12.0-15.5); LYMPHOCYTES % (AUTO) 20.4 % (13-45); MEAN CORPUSCULAR HEMOGLOBIN 21.3 pg (27.0-33.4); MEAN CORPUSCULAR HGB CONC 32.4 g/dL (32.0-36.0); MEAN CORPUSCULAR VOLUME 66 fl (80-97); MONOCYTES % (AUTO) 7.8 % (3-13); PLATELET COUNT 389 10^3/uL (150-450); RED BLOOD COUNT 4.89 10^6/uL (3.72-5.28); RED CELL DISTRIBUTION WIDTH 16.2 % (11.5-14.0); SEGMENTED NEUTROPHILS % (AUTO) 70.6 % (42-78); TOTAL CELLS COUNTED % (AUTO) 100 %; WHITE BLOOD COUNT 8.3 10^3/uL (4.0-10.5)
== END ==
LOC: OD 08:11
PROVIDERS: ATTEND Internal Medicine Pulmonary Disease
DX: R05 Cough (principal)
CPT/HCPCS: 36415; 71046; 85025; 87070; 87205

== ENCOUNTER → 2018-08-26 | Outpatient (CLI) | payer BC ==
[2018-08-26 17:01] LABS: ABSOLUTE RETICS # 0.059 10^6/uL (0.028-0.122); RETICULOCYTE COUNT (AUTO) 1.21 % (0.66-2.85)
[2018-08-26 18:18] LABS: IRON < 10.1 ug/dL (37-170)
[2018-08-29 11:42] LABS: M004-IGE MUCOR RACEMOSUS 2.35 kU/L (Class III); M006-IGE ALTERNARIA ALTERNATA 4.93 kU/L (Class IV); M009-IGE FUSARIUM PROLIFERATUM 7.76 kU/L (Class IV)
== END ==
LOC: OD 16:12
PROVIDERS: ATTEND Internal Medicine Pulmonary Disease
DX: J45.51 Severe persistent asthma with (acute) exacerbation (principal); D50.8 Other iron deficiency anemias
CPT/HCPCS: 36415; 82607; 82728; 82785; 83540; 85045; 86003

== ENCOUNTER → 2018-09-03 | Day surgery (SDC) | payer BC ==
[~2018-09-03] MED LIST: LIDOCAINE 2% JELLY 5 ML TUBE ONE
== END ==
LOC: END 07:23
PROVIDERS: ATTEND Surgery
DX: K44.9 Diaphragmatic hernia without obstruction or gangrene (principal); R19.2 Visible peristalsis
CPT/HCPCS: 91010

== ENCOUNTER 2018-10-29 17:37 | Emergency (ER) | payer BC ==
[2018-10-29] MEDS ORDERED: NORMAL SALINE 1000 ML 1,000 ML IV ONE (19:24)
[2018-10-29] MEDS ORDERED: LIDOCAINE 2% VISCOUS SOLN 20 ML UDCUP PO ONE (20:06)
[2018-10-29] MEDS ORDERED: MAG HYDROX/AL HYDROX/SIMETH SUSP 30 ML UDCUP PO ONE (20:06)
[2018-10-29 20:07] LABS: ABSOLUTE EOSINOPHILS # (AUTO) 0.2 10^3/uL (0.0-0.6); ABSOLUTE LYMPHOCYTES (AUTO) 1.5 10^3/uL (0.5-4.7); ABSOLUTE MONOCYTES (AUTO) 0.7 10^3/uL (0.1-1.4); ABSOLUTE NEUT (AUTO) 4.6 10^3/uL (1.7-8.2); BASOPHILS % (AUTO) 0.6 % (0-2); EOSINOPHILS % (AUTO) 2.3 % (0-6); HEMATOCRIT 37.8 % (36.0-47.0); HEMOGLOBIN 11.9 g/dL (12.0-15.5); LYMPHOCYTES % (AUTO) 21.2 % (13-45); MEAN CORPUSCULAR HEMOGLOBIN 21.6 pg (27.0-33.4); MEAN CORPUSCULAR HGB CONC 31.5 g/dL (32.0-36.0); MEAN CORPUSCULAR VOLUME 69 fl (80-97); MONOCYTES % (AUTO) 10.5 % (3-13); PLATELET COUNT 373 10^3/uL (150-450); RED CELL DISTRIBUTION WIDTH 18.5 % (11.5-14.0); SEGMENTED NEUTROPHILS % (AUTO) 65.4 % (42-78); TOTAL CELLS COUNTED % (AUTO) 100 %
--- NOTE | 2018-10-29 20:09 | RADIOLOGY REPORT (SQ) ---
EXAM DESCRIPTION: XR ABDOMEN SUPINE AND ERECT WITH CHEST (ABD ACUTE SERIES) COMPLETED DATE/TME: 10/29/2018 19:24 CLINICAL HISTORY: 28 years, Female, sob Findings: The heart is not enlarged. Lungs are clear. No pleural effusion. No free intraperitoneal air. Mild amount of stool in the colon. Status post cholecystectomy. No abnormal calculi. IMPRESSION: No suspicious findings.
[2018-10-29 20:16] LABS: APPEARANCE,URINE SLIGHTLY-CLOUDY; BILIRUBIN,URINE NEGATIVE (NEGATIVE); COLOR,URINE AMBER; GLUCOSE, URINE NEGATIVE (NEGATIVE); KETONES,URINE 20 mg/dL (NEGATIVE); LEUKOCYTE ESTERASE,URINE NEGATIVE (NEGATIVE); NITRITE,URINE NEGATIVE (NEGATIVE); PROTEIN,URINE NEGATIVE (NEGATIVE); URINE SPECIFIC GRAVITY 1.018
[2018-10-29 20:24] LABS: ALANINE AMINOTRANSFERASE 26 U/L (9-52); ALBUMIN 4.2 g/dL (3.5-5.0); ALKALINE PHOSPHATASE 93 U/L (38-126); ANION GAP 6 (5-19); ASPARTATE AMINO TRANSFERASE 25 U/L (14-36); BILIRUBIN,DIRECT 0.3 mg/dL (0.0-0.4); BILIRUBIN,TOTAL 0.5 mg/dL (0.2-1.3); BLOOD UREA NITROGEN 4 mg/dL (7-20); CALCIUM 9.3 mg/dL (8.4-10.2); CARBON DIOXIDE 30 mmol/L (22-30); CHLORIDE 102 mmol/L (98-107); GLUCOSE 82 mg/dL (75-110); POTASSIUM 3.9 mmol/L (3.6-5.0); SODIUM 137.6 mmol/L (137-145); TOTAL PROTEIN 7.3 g/dL (6.3-8.2)
--- NOTE | 2018-10-29 21:27 | ER Document Report ---
ED General - General Chief Complaint: Breathing Difficulty Stated Complaint: SHORT OF BREATH,DIZZINESS,VOMITING Time Seen by Provider: 10/29/18 18:48 TRAVEL OUTSIDE OF THE [place] IN LAST 30 DAYS: No - HPI Patient complains to provider of: Multiple complaints Notes: Patient coming in for multiple complaints patient states has history of hiatal hernia was supposed to have a Cruz fundoplication however declined this. Patient states she has a history of GERD patient states she has been compliant with her medication also has a history of a thyroid nodule recently found by her PCP. Patient states tonight feeling that there is a lump in her throat having nausea vomiting. Patient states she is only able to tolerate p.o. liquids at this time. Patient upon my evaluation is resting healthily. I reviewed the patient's past medical history shows that she has eosinophilic esophagitis on a recent EGD. A brief review of the patient's past medical records available in [employer] was performed - Related Data Allergies/Adverse Reactions: amoxicillin Allergy (Verified 09/24/18 11:22) clindamycin [Clindamycin] Allergy (Verified 09/24/18 11:22) metoclopramide [From Reglan] Allergy (Verified 09/24/18 11:22) Past Medical History - Social History Smoking Status: Unknown if Ever Smoked Chew tobacco use (# tins/day): No Frequency of alcohol use: None Drug Abuse: None Family History: CAD - Mother, Hypertension - Hypertension Patient has suicidal ideation: No Patient has homicidal ideation: No - Past Medical History Cardiac Medical History: Denies: Hx Coronary Artery Disease, Hx Heart Attack, Hx Hypercholesterolemia, Hx Hypertension Pulmonary Medical History: Reports: Hx Asthma Denies: Hx Bronchitis, Hx COPD, Hx Pneumonia Neurological Medical History: Reports: Hx Migraine. Denies: Hx Cerebrovascular Accident, Hx Seizures Renal/ Medical History: Denies: Hx Peritoneal Dialysis GI Medical History: Reports: Hx Gastroesophageal Reflux Disease Musculoskeletal Medical History: Denies Hx Arthritis Skin Medical History: Reports Hx Eczema Past Surgical History: Reports: Hx Section - x2, Hx Cholecystectomy, Other - EGD 2 weeks ago, colonoscopy this morning - Immunizations Immunizations up to date: Yes Hx Diphtheria, Pertussis, Tetanus Vaccination: Yes - 2018 Review of Systems - Review of Systems Constitutional: No symptoms reported EENT: Other - Lump in throat Cardiovascular: No symptoms reported Respiratory: No symptoms reported Gastrointestinal: Nausea, Vomiting Genitourinary: No symptoms reported Female Genitourinary: No symptoms reported Musculoskeletal: No symptoms reported Skin: No symptoms reported Hematologic/Lymphatic: No symptoms reported Neurological/Psychological: No symptoms reported -: Yes All other systems reviewed and negative Physical Exam - Vital signs Vitals: Temp Pulse Resp BP Pulse Ox 98.3 F 88 20 117/50 L 100 10/29/18 18:07 10/29/18 18:07 10/29/18 18:07 10/29/18 18:07 10/29/18 18:07 Interpretation: Normal - General General appearance: Appears well, Alert - HEENT Head: Normocephalic, Atraumatic Eyes: Normal Pupils: PERRL - Respiratory Respiratory status: No respiratory distress Chest status: Nontender Breath sounds: Normal Chest palpation: Normal - Cardiovascular Rhythm: Regular Heart sounds: Normal auscultation Murmur: No - Abdominal Inspection: Normal Distension: No distension Bowel sounds: Normal Tenderness: Nontender Organomegaly: No organomegaly - Back Back: Normal, Nontender - Extremities General upper extremity: Normal inspection, Nontender, Normal color, Normal ROM, Normal temperature General lower extremity: Normal inspection, Nontender, Normal color, Normal ROM, Normal temperature, Normal weight bearing. No: Yuko's sign - Neurological Neuro grossly intact: Yes Cognition: Normal Orientation: AAOx4 [place] Coma Scale Eye Opening: Spontaneous [place] Coma Scale Verbal: Oriented [place] Coma Scale Motor: Obeys Commands [place] Coma Scale Total: 15 Speech: Normal Motor strength normal: LUE, RUE, LLE, RLE Sensory: Normal - Psychological Associated symptoms: Normal affect, Normal mood - Skin Skin Temperature: Warm Skin Moisture: Dry Skin Color: Normal Course - Re-evaluation Re-evalutation: 10/30/18 03:14 Patient will to tolerate p.o. here. Laboratory studies not show any acute findings. Patient symptoms are more likely related to her underlying acid reflu x. Recommend patient continue her PPI also as short course of using H2 blockers to help out with the blunt feeling in her throat. Patient was also recommended to follow-up with her primary care physician and her GI specialist for reevaluation for possible surgery having surgery performed - Vital Signs Vital signs: Temp Pulse Resp BP Pulse Ox 99.1 F 85 20 130/71 H 97 10/29/18 21:53 10/29/18 21:53 10/29/18 18:07 10/29/18 21:53 10/29/18 21:53 - Laboratory Result Diagrams: 10/29/18 19:35 10/29/18 19:35 Laboratory results interpreted by me: 10/29/18 10/29/18 10/29/18 19:35 19:35 20:00 RBC 5.50 H Hgb 11.9 L MCV 69 L MCH 21.6 L MCHC 31.5 L RDW 18.5 H BUN 4 L Urine Ketones 20 H Urine Urobilinogen 2.0 H Urine Ascorbic Acid 20 H Discharge - Discharge Clinical Impression: Globus hystericus GERD (gastroesophageal reflux disease) Qualifiers: Esophagitis presence: with esophagitis Qualified Code(s): K21.0 - Gastro- esophageal reflux disease with esophagitis Nausea and vomiting Qualifiers: Vomiting type: unspecified Vomiting Intractability: unspecified Qualified Co de(s): R11.2 - Nausea with vomiting, unspecified Condition: Good Disposition: HOME, SELF-CARE Instructions: Reflux Disease (GERD) ([facility]), Vomiting ([facility]) Additional Instructions: Your evaluation today does not show any critical findings your x-rays are negative for any signs of obstruction or acute pulmonic disease laboratory studies not show any signs of overt dehydration I highly recommend that along with your Protonix to take the Pepcid as prescribed he may also take the Carafate as prescribed to help out with your symptoms I would highly recommend that you follow-up with your primary care physician and surgical technician I believe most of your symptoms are coming from your significant acid reflux and previous diagnosis of esophagitis Prescriptions: Famotidine [Pepcid 20 mg Tablet] 20 mg PO BID #30 tablet Sucralfate [Carafate Susp 1 Gm/10 Ml Udcup] 1 gm PO QID #200 udc Referrals: AILEEN BRUNNER DO [Primary Care Provider] - Follow up tomorrow
[2018-10-29 21:54] VITALS: BP 130/71
== END 2018-10-29 22:01 | disposition home or self-care (01) ==
LOC: ER 17:37
DX: K21.0 Gastro-esophageal reflux disease with esophagitis (principal); F45.8 Other somatoform disorders; R11.2 Nausea with vomiting, unspecified; Z88.0 Allergy status to penicillin; Z88.1 Allergy status to other antibiotic agents; Z88.8 Allergy status to other drugs, medicaments and biological substances; J45.909 Unspecified asthma, uncomplicated
CPT/HCPCS: 99285; 96360; 36415; 83690; 84703; 85025; 80053; 81001; 74022; J3490; J7030

== ENCOUNTER 2019-01-05 11:05 | Emergency (ER) | payer BC ==
[2019-01-05] MEDS ORDERED: IPRATROPIUM/ALBUTEROL 0.5-2.5 MG/3 ML AMPUL NEB ONE (11:37)
[2019-01-05] MEDS ORDERED: ALBUTEROL SULFATE 0.083% NEB 2.5 MG/3 ML AMPUL NEB ONE ×2 (11:37→12:39)
[2019-01-05] MEDS ORDERED: PREDNISONE 20 MG TABLET PO ONE (11:37)
--- NOTE | 2019-01-05 11:42 | ER Document Report ---
ED General - General Chief Complaint: Shortness Of Breath Stated Complaint: SHORTNESS OF BREATH, CHEST TIGHTNESS, COUGH Time Seen by Provider: 01/05/19 11:31 Primary Care Provider: AILEEN BRUNNER DO [Primary Care Provider] - Follow up in 3-5 days TRAVEL OUTSIDE OF THE [place] IN LAST 30 DAYS: No - HPI Notes: Patient is a 28-year-old female that presents to the emergency department for chief complaint of cough and asthma. Patient reports history of asthma and does follow with a nickel plater. She is on Spiriva, Symbicort and nebulized albuterol. Patient has been requiring her albuterol every 3-4 hours for the last few days. She reports a diffuse chest tightness and increased sputum production. She denies any chest pain, lightheadedness, diaphoresis or palpitations. She denies any fevers or chills. She states this does feel like her typical asthma exacerbations and she has required admission to the hospital previously. She denies history of intubation or home oxygen. Past Medical History: Seasonal allergies, asthma, GERD, eczema Past Surgical History: x2, cholecystectomy Social History: Denies drugs alcohol and tobacco Family History: Reviewed and noncontributory for presenting illness Allergies: Reviewed, see documented allergy list. REVIEW OF SYSTEMS: CONSTITUTIONAL : No fever No chills No diaphoresis No recent illness EENT: No vision changes No congestion No sore throat CARDIOVASCULAR: No chest pain No palpitations RESPIRATORY: shortness of breath cough difficulty breathing GASTROINTESTINAL: No abdominal pain No nausea No vomiting No diarrhea GENITOURINARY: No dysuria No hematuria No difficulty urinating MUSCULOSKELETAL: No back pain No leg pain No arm pain SKIN: No rashes No lesions LYMPHATIC: No swollen, enlarged glands. NEUROLOGICAL: No lightheadedness No headache No weakness No paresthesias PSYCHIATRIC: No anxiety No depression PHYSICAL EXAMINATION: Vital signs reviewed, nursing noted reviewed. GENERAL: Well-appearing, obese and in no acute distress. HEAD: Atraumatic, normocephalic. EYES: Eyes appear normal, extraocular movements intact, sclera anicteric, conjunctiva are normal. ENT: nares patent, oropharynx clear without exudates. Moist mucous membranes. NECK: Normal range of motion, supple without lymphadenopathy LUNGS: Breath sounds clear but diminished bilaterally with prolongation of expiratory phase, no accessory muscle use or tachypnea HEART: Regular rate and rhythm without murmurs ABDOMEN: Soft, nontender, normoactive bowel sounds. No rebound, guarding, or rigidity. No masses appreciated. EXTREMITIES: Nontender, good range of motion, no pitting or edema. NEUROLOGICAL: No focal neurological deficits. Moves all extremities spontaneously Motor and sensory grossly intact on exam. PSYCH: Normal mood, normal affect. SKIN: Warm, Dry, normal turgor, no rashes or lesions noted on exposed skin - Related Data Allergies/Adverse Reactions: amoxicillin Allergy (Verified 01/05/19 11:06) clindamycin [Clindamycin] Allergy (Verified 01/05/19 11:06) metoclopramide [From Reglan] Allergy (Verified 01/05/19 11:06) Past Medical History - Social History Smoking Status: Never Smoker Family History: CAD - Mother, Hypertension - Hypertension - Past Medical History Cardiac Medical History: Denies: Hx Coronary Artery Disease, Hx Heart Attack, Hx Hypercholesterolemia, Hx Hypertension Pulmonary Medical History: Reports: Hx Asthma Denies: Hx Bronchitis, Hx COPD, Hx Pneumonia Neurological Medical History: Reports: Hx Migraine. Denies: Hx Cerebrovascular Accident, Hx Seizures Renal/ Medical History: Denies: Hx Peritoneal Dialysis GI Medical History: Reports: Hx Gastroesophageal Reflux Disease Musculoskeletal Medical History: Denies Hx Arthritis Skin Medical History: Reports Hx Eczema Past Surgical History: Reports: Hx Section - x2, Hx Cholecystectomy, Other - EGD 2 weeks ago, colonoscopy this morning - Immunizations Immunizations up to date: Yes Hx Diphtheria, Pertussis, Tetanus Vaccination: Yes - 2018 Physical Exam - Vital signs Vitals: Temp Pulse Resp BP Pulse Ox 98.5 F 96 18 133/79 H 99 01/05/19 11:11 01/05/19 11:11 01/05/19 11:11 01/05/19 11:11 01/05/19 11:11 Course - Re-evaluation Re-evalutation: 01/05/19 11:42 Vitals reviewed. Nursing notes reviewed. Patient symptoms consistent with acute asthma exacerbation. She is in no respiratory distress and oxygenating well on room air. She will be given DuoNeb, prednisone, and albuterol for symptom management. 01/05/19 12:39 Patient reevaluated. She is breathing comfortably on room air at 100%. She is now having some increased wheezing and moving more air. She does report some symptomatic improvement but still feels tightness. She will be given another albuterol inhaler. Patient will be started on prednisone. She has significant history of allergies and does have an machine operator cane cutter who previously had her on allergy shots. She will follow with her machine operator cane cutter and nickel plater for follow- up. She was counseled on return precautions and verbalized understanding. She is stable at discharge. Chest X-Ray 01/05/19 11:33 IMPRESSION: NO SIGNIFICANT RADIOGRAPHIC FINDING IN THE CHEST. - Vital Signs Vital signs: Temp Pulse Resp BP Pulse Ox 98.5 F 96 13 119/77 100 01/05/19 11:11 01/05/19 11:11 01/05/19 12:01 01/05/19 12:00 01/05/19 12:01 Discharge - Discharge Clinical Impression: Asthma exacerbation Qualifiers: Asthma severity: unspecified severity Asthma persistence: unspecified Qualified Code(s): J45.901 - Unspecified asthma with (acute) exacerbation Condition: Stable Disposition: HOME, SELF-CARE Instructions: Asthma ([facility]) Additional Instructions: Please return to the emergency department if you have any worsening, or concern of your symptoms. Please return to the emergency department if you develop chest pain, difficulty breathing, severe abdominal pain, or ongoing vomiting. Please follow-up with your primary care physician in 2-3 days and any other recommended physicians. If prescribed, take all medications as directed. If you have any questions or concerns do not hesitate to return the emergency department for evaluation. Prescriptions: Prednisone [Deltasone 20 mg Tablet] 2 tab PO DAILY 5 Days tablet Referrals: AILEEN BRUNNER DO [Primary Care Provider] - Follow up in 3-5 days
--- NOTE | 2019-01-05 12:15 | RADIOLOGY REPORT (SQ) ---
EXAM DESCRIPTION: CHEST SINGLE VIEW COMPLETED DATE/TIME: 01/05/2019 11:59 am REASON FOR STUDY: cough COMPARISON: 2018. NUMBER OF VIEWS: One view. TECHNIQUE: Single frontal radiographic view of the chest acquired. LIMITATIONS: None. FINDINGS: LUNGS AND PLEURA: No opacities, masses or pneumothorax. No pleural effusion. MEDIASTINUM AND HILAR STRUCTURES: No masses. Contour normal. HEART AND VASCULAR STRUCTURES: Heart normal in size. Normal vasculature. BONES: No acute findings. HARDWARE: None in the chest. OTHER: No other significant finding. IMPRESSION: NO SIGNIFICANT RADIOGRAPHIC FINDING IN THE CHEST. TECHNICAL DOCUMENTATION: JOB ID: [id number] [employer]- All Rights Reserved Reading location - IP/workstation name: [email or web address]
[2019-01-05 13:23] VITALS: BP 125/79
== END 2019-01-05 13:23 | disposition home or self-care (01) ==
LOC: ER 11:05
DX: J45.901 Unspecified asthma with (acute) exacerbation (principal); Z79.899 Other long term (current) drug therapy; Z79.51 Long term (current) use of inhaled steroids; R05 Cough; R07.89 Other chest pain; R06.02 Shortness of breath; Z88.0 Allergy status to penicillin; Z88.1 Allergy status to other antibiotic agents; Z88.8 Allergy status to other drugs, medicaments and biological substances
CPT/HCPCS: 94640 ×2; 99284; 71045; J7512; J7620

== ENCOUNTER 2019-01-08 16:30 | Emergency (ER) | payer BC ==
[2019-01-08] MEDS ORDERED: NORMAL SALINE 1000 ML 1,000 ML IV ONE (18:03)
[2019-01-08] MEDS ORDERED: DEXAMETHASONE SOD PHOS INJ 10 MG/1 ML VIAL IV ONE (18:03)
--- NOTE | 2019-01-08 18:03 | ER Document Report ---
ED Medical Screen (RME) - General Chief Complaint: Dizziness Stated Complaint: DIZZY, NAUSEA,BLURRED VISION Time Seen by Provider: 01/08/19 17:49 Primary Care Provider: AILEEN BRUNNER DO [Primary Care Provider] - Follow up as needed Notes: Patient is a 28-year-old female that presents to the emergency department for chief complaint of headache, nausea, vision changes. Patient reports having symptoms for about a week now, just not getting better so she decided come in to have her headache evaluated reports prior history of migraines, slightly different than priors. ROS: Other than noted above, the 12 point review of systems was reviewed with the patient and were negative, all pertinent findings are included in the HPI. PHYSICAL EXAMINATION: Vital signs reviewed. GENERAL: Well-appearing, well-nourished and in no acute distress. HEAD: Atraumatic, normocephalic. EYES: Pupils equal round extraocular movements intact, conjunctiva are normal. ENT: Nares patent NECK: Normal range of motion, mild tenderness to palpation to the paraspinal muscles of the cervical spine CV: Heart regular rate and rhythm LUNGS: No respiratory distress Musculoskeletal: Normal range of motion NEUROLOGICAL: Normal speech PSYCH: Normal mood, normal affect. MDM: Patient seen and examined for rapid initial assessment. Vital signs reviewed. A comprehensive ED assessment and evaluation of the patient, analysis of test results and completion of the medical decision making process will be conducted by additional ED providers. *Note is created using voice recognition software and may contain spelling, syn tax or grammatical errors. TRAVEL OUTSIDE OF THE [place] IN LAST 30 DAYS: No - Related Data Allergies/Adverse Reactions: amoxicillin Allergy (Verified 01/08/19 17:47) clindamycin [Clindamycin] Allergy (Verified 01/08/19 17:47) metoclopramide [From Reglan] Allergy (Verified 01/08/19 17:47) Past Medical History - Social History Frequency of alcohol use: None Drug Abuse: None - Past Medical History Cardiac Medical History: Denies: Hx Coronary Artery Disease, Hx Heart Attack, Hx Hypercholesterolemia, Hx Hypertension Pulmonary Medical History: Reports: Hx Asthma Denies: Hx Bronchitis, Hx COPD, Hx Pneumonia Neurological Medical History: Reports: Hx Migraine. Denies: Hx Cerebrovascular Accident, Hx Seizures Renal/ Medical History: Denies: Hx Peritoneal Dialysis GI Medical History: Reports: Hx Gastroesophageal Reflux Disease Musculoskeltal Medical History: Denies Hx Arthritis Skin Medical History: Reports Hx Eczema Past Surgical History: Reports: Hx Section - x2, Hx Cholecystectomy, Other - EGD 2 weeks ago, colonoscopy this morning - Immunizations Immunizations up to date: Yes Hx Diphtheria, Pertussis, Tetanus Vaccination: Yes - 2018 History of Influenza Vaccine for 07/2017 - 12/2017 Season: Yes Influenza Administration Date for 07/2017 - 12/2017 Season: 07/15/18 Physical Exam - Vital signs Vitals: Temp Pulse Resp BP Pulse Ox 98.3 F 98 18 141/80 H 99 01/08/19 16:40 01/08/19 16:40 01/08/19 16:40 01/08/19 16:40 01/08/19 16:40 Course - Vital Signs Vital signs: Temp Pulse Resp BP Pulse Ox 98.3 F 98 18 141/80 H 99 01/08/19 16:40 01/08/19 16:40 01/08/19 16:40 01/08/19 16:40 01/08/19 16:40 Doctor's Discharge - Discharge Referrals: AILEEN BRUNNER DO [Primary Care Provider] - Follow up as needed
[2019-01-08] MEDS ORDERED: MAGNESIUM SULFATE/D5W 1 GM/100 ML RTUPB IV ONE (18:04)
[2019-01-08] MEDS ORDERED: KETOROLAC TROMETHAMINE INJ/PF 30 MG/1 ML SDV IV ONE (18:04)
[2019-01-08] MEDS ORDERED: ONDANSETRON HCL INJ/PF 4 MG/2 ML SDV IV ONE (18:04)
--- NOTE | 2019-01-08 20:57 | ER Document Report ---
ED General - General Chief Complaint: Dizziness Stated Complaint: DIZZY, NAUSEA,BLURRED VISION Time Seen by Provider: 01/08/19 17:49 Primary Care Provider: AILEEN BRUNNER DO [Primary Care Provider] - Follow up as needed Notes: Patient is a 28-year-old female that comes emergency department for several complaints. Chief complaint is intermittent headaches for 1 week, she states she has a tightness in her upper shoulders and neck with a "bandlike" headache coming and going across her head, slightly worse on the right. She reports some vague nausea with it, she states that she does have a history of migraines but those are worse and this is slightly different. She denies vomiting, visual changes, fever, severe headache. She was seen a few days ago for an asthma exacerbation, placed on prednisone. She states that today she had some nausea and lack of appetite when trying to eat but she denies abdominal pain. No current abdominal complaints. She saw her primary care, she has had some ear popping and nasal congestion, placed on Tammy. TRAVEL OUTSIDE OF THE [place] IN LAST 30 DAYS: No - Related Data Allergies/Adverse Reactions: amoxicillin Allergy (Verified 01/08/19 17:47) clindamycin [Clindamycin] Allergy (Verified 01/08/19 17:47) metoclopramide [From Reglan] Allergy (Verified 01/08/19 17:47) Past Medical History - General Information source: Patient - Social History Smoking Status: Never Smoker Frequency of alcohol use: None Drug Abuse: None Lives with: Family Family History: CAD - Mother, Hypertension - Hypertension Patient has suicidal ideation: No Patient has homicidal ideation: No - Past Medical History Cardiac Medical History: Denies: Hx Coronary Artery Disease, Hx Heart Attack, Hx Hypercholesterolemia, Hx Hypertension Pulmonary Medical History: Reports: Hx Asthma Denies: Hx Bronchitis, Hx COPD, Hx Pneumonia Neurological Medical History: Reports: Hx Migraine. Denies: Hx Cerebrovascular Accident, Hx Seizures Renal/ Medical History: Denies: Hx Peritoneal Dialysis GI Medical History: Reports: Hx Gastroesophageal Reflux Disease Musculoskeletal Medical History: Denies Hx Arthritis Skin Medical History: Reports Hx Eczema Past Surgical History: Reports: Hx Section - x2, Hx Cholecystectomy, Other - EGD 2 weeks ago, colonoscopy this morning - Immunizations Immunizations up to date: Yes Hx Diphtheria, Pertussis, Tetanus Vaccination: Yes - 2018 Review of Systems - Review of Systems Constitutional: No symptoms reported EENT: No symptoms reported Cardiovascular: No symptoms reported Respiratory: No symptoms reported Gastrointestinal: See HPI Genitourinary: No symptoms reported Female Genitourinary: No symptoms reported Musculoskeletal: No symptoms reported Skin: No symptoms reported Hematologic/Lymphatic: No symptoms reported Neurological/Psychological: See HPI Physical Exam - Vital signs Vitals: Temp Pulse Resp BP Pulse Ox 98.3 F 98 18 141/80 H 99 01/08/19 16:40 01/08/19 16:40 01/08/19 16:40 01/08/19 16:40 01/08/19 16:40 - Notes Notes: GENERAL: Alert, interacts well. No acute distress. HEAD: Normocephalic, atraumatic. EYES: Pupils equal, round, and reactive to light. Extraocular movements intact. ENT: Oral mucosa moist, tongue midline. Oropharynx unremarkable. Airway patent. Nares patent, no nasal septal hematoma, TM's intact. NECK: Full range of motion. Supple. Trachea midline. LUNGS: Clear to auscultation bilaterally, no wheezes, rales, or rhonchi. No respiratory distress. HEART: Regular rate and rhythm. No murmur ABDOMEN: Soft, non-tender. Non-distended. Bowel sounds present in all 4 quadrants. GENITOURINARY: Deferred EXTREMITIES: Moves all 4 extremities spontaneously. No edema, normal radial and dorsalis pedis pulses bilaterally. No cyanosis. BACK: no cervical, thoracic, lumbar midline tenderness. There is paracervical tenderness along both sides of the neck, slightly worse on the right. Range of motion of the neck intact. No saddle anesthesia, normal distal neurovascular exam. NEUROLOGICAL: Alert and oriented x3. Normal speech. [cranial nerves II through XII grossly intact]. PSYCH: Normal affect, normal mood. SKIN: Warm, dry, normal turgor. No rashes or lesions noted. Course - Re-evaluation Re-evalutation: Patient with very classic tension headache type symptoms. Symptoms going on intermittently for a week. She states this is not as bad as her typical migraine. She is smiling and well-appearing. She reports some reflux, she is on prednisone, her abdomen is benign. Her neurological exam is normal. She has no signs of distress. She does have some paracervical muscular tenderness, she describes a bandlike headache intermittently. She states she feels better after medications from triage. Not requesting any additional treatment at this time. As result I have low suspicion of intracranial hemorrhage, subarachnoid hemorrhage, meningitis, venous sinus thrombosis. Vital signs unremarkable. Discussing options for going home. After discussion decision was made to provide her with something where she could sleep, she is already been on other muscle relaxers with no good effect, as result she was given diazepam. Given precautions for this. Given Fioricet for taking for the headache. Provided with work-release. Discussed follow-up and return precautions in detail. Patient states understanding and agreement. Stable at time of discharge. - Vital Signs Vital signs: Temp Pulse Resp BP Pulse Ox 98.0 F 86 16 119/83 100 01/08/19 21:22 01/08/19 21:22 01/08/19 21:22 01/08/19 21:22 01/08/19 21:22 Discharge - Discharge Clinical Impression: Neck pain, Upper back pain Headache Qualifiers: Headache type: unspecified Headache chronicity pattern: acute headache Intractability: not intractable Qualified Code(s): R51 - Headache Condition: Stable Disposition: HOME, SELF-CARE Additional Instructions: Your evaluation is consistent with several symptoms. The asthma exacerbation/upper respiratory infection which were completing the prednisone and will take the Tammy for, the upset stomach probably from the prednisone (continue Protonix, add Pepcid twice daily while taking, take with food). Your exam also indicates probable tension headache. Complete prednisone for asthma exacerbation. Take Fioricet if needed for headaches. Take the diazepam as prescribed as muscle relaxant, I recommend that you take at night (do not drive while taking, combine with alcohol, or combine with other medication). Massage on the neck and upper back can help, along with heat. Once the neck tightness resolves your headaches are likely to resolve. Follow-up with primary care. Return if you worsen including severe worsening headache, vomiting, fever, difficulty breathing, or any other concerning or worsening symptoms. Prescriptions: Butalb/Acetaminophen/Caffeine [Fioricet (50-325-40 mg) Tablet] 1 tab PO Q4HP PRN #20 tab PRN Reason: Diazepam [Valium 5 mg Tablet] 1 - 2 tab PO TID PRN #12 tablet PRN Reason: Forms: Return to Work Referrals: AILEEN BRUNNER, [Primary Care Provider] - Follow up as needed
[2019-01-08 21:23] VITALS: BP 119/83
== END 2019-01-08 21:24 | disposition home or self-care (01) ==
LOC: ER 16:30
DX: R51 Headache (principal); M54.2 Cervicalgia; M54.89 Other dorsalgia; Z86.73 Personal history of transient ischemic attack (TIA), and cerebral infarction without residual deficits; K21.9 Gastro-esophageal reflux disease without esophagitis; Z79.52 Long term (current) use of systemic steroids
CPT/HCPCS: 99283; 96361; 96374; 96375; J1885; J2405; J7030; J1100

== ENCOUNTER 2019-01-17 20:24 | Emergency (ER) | payer BC ==
[2019-01-17] MEDS ORDERED: PROCHLORPERAZINE EDISYLATE INJ 10 MG/2 ML VIAL IV ONE (21:51)
[2019-01-17] MEDS ORDERED: NORMAL SALINE 1000 ML 1,000 ML IV ONE (21:52)
[2019-01-17] MEDS ORDERED: KETOROLAC TROMETHAMINE INJ/PF 30 MG/1 ML SDV IV ONE (21:52)
[2019-01-17] MEDS ORDERED: DIPHENHYDRAMINE HCL 50 MG/ML VIAL IV ONE (21:52)
--- NOTE | 2019-01-17 21:56 | ER Document Report ---
ED General - General Chief Complaint: Headache Stated Complaint: HEADACHE Time Seen by Provider: 01/17/19 21:42 Primary Care Provider: AILEEN BRUNNER DO [Primary Care Provider] - Follow up as needed Mode of Arrival: Ambulatory Information source: Patient TRAVEL OUTSIDE OF THE [place] IN LAST 30 DAYS: No - HPI Patient complains to provider of: Headaches and body numbness and tingling. Onset: Other - Chronic Onset/Duration: Intermittent Quality of pain: Throbbing Severity: Moderate Pain Level: 2 Associated symptoms: denies: Chills, Fever Exacerbated by: Denies Relieved by: Denies Similar symptoms previously: No Recently seen / treated by doctor: No - Related Data Allergies/Adverse Reactions: amoxicillin Allergy (Verified 01/08/19 17:47) clindamycin [Clindamycin] Allergy (Verified 01/08/19 17:47) metoclopramide [From Reglan] Allergy (Verified 01/08/19 17:47) Past Medical History - General Information source: Patient - Social History Smoking Status: Never Smoker Chew tobacco use (# tins/day): No Drug Abuse: None Family History: Reviewed & Not Pertinent, CAD - Mother, Hypertension - Hypertension Patient has suicidal ideation: No Patient has homicidal ideation: No - Past Medical History Cardiac Medical History: Denies: Hx Coronary Artery Disease, Hx Heart Attack, Hx Hypercholesterolemia, Hx Hypertension Pulmonary Medical History: Reports: Hx Asthma Denies: Hx Bronchitis, Hx COPD, Hx Pneumonia Neurological Medical History: Reports: Hx Migraine. Denies: Hx Cerebrovascular Accident, Hx Seizures Renal/ Medical History: Denies: Hx Peritoneal Dialysis GI Medical History: Reports: Hx Gastroesophageal Reflux Disease Musculoskeletal Medical History: Denies Hx Arthritis Skin Medical History: Reports Hx Eczema Past Surgical History: Reports: Hx Section - x2, Hx Cholecystectomy, Other - EGD 2 weeks ago, colonoscopy this morning - Immunizations Immunizations up to date: Yes Hx Diphtheria, Pertussis, Tetanus Vaccination: Yes - 2018 Review of Systems - Review of Systems Notes: Constitutional: No fevers. No chills. EENT: No eye redness. No eye pain. No ear pain. No sore throat. Cardiovascular: No chest pain. No palpitations. Respiratory: No cough. No shortness of breath. No respiratory distress. Gastrointestinal: No abdominal pain. No nausea, vomiting, or diarrhea. Genitourinary: Atraumatic. No lesions. No pain. No discharge. Musculoskeletal: Atraumatic. No swelling. No deformities. Skin: No rash or lesions. Lymphatic: No swollen lymph nodes. Neurologic: Positive for headache. No syncope. Positive for numbness and tingling in body Psychiatric: No suicidal or homicidal ideation. Physical Exam - Vital signs Vitals: Temp Pulse Resp BP Pulse Ox 98.8 F 107 H 15 122/79 97 01/17/19 20:34 01/17/19 20:34 01/17/19 20:34 01/17/19 20:34 01/17/19 20:34 - Notes Notes: General: Well-developed, well-nourished. In no acute distress. Non-toxic appearing. Cardiac: Well-perfused. Regular rate and rhythm. No murmurs, rubs, or gallops. Pulmonary: No respiratory distress. No cyanosis. Bilateral lung fiels are clear to auscultation. Abdominal: Non-distended. Non-rigid. Bowels sounds are present in all four quadrants. No guarding or rebound. HEENT: Head is atraumatic. Conjunctivae not reddened. No tearing. PERRL. EOMI. Orbits atraumatic. No periorbital swelling or erythema. Oropharynx is without erythema, swelling, or exudates. Neck: Supple. No adenopathy. No meningismus. Dermatologic: Warm with good turgor. No rash. Atraumatic. Chest: Atraumatic. No chest wall tenderness to palpation. Musculoskeletal: Moves all extremities well. No range of motion deficits. no muscular or joint tenderness. No paraspinal muscle tenderness. no midline spinal tenderness or step-off. Genitourinary: Examination deferred Neurologic: No gross neurologic deficits. Psychiatric: Normal mood. Course - Re-evaluation Re-evalutation: 01/17/19 21:55 Patient has a chronic history of headaches. Apparently with this new tingling and body numbness her doctor wants her to have a CT scan. Told her to come to the ER so she would not have to get approval through insurance. 01/17/19 23:[address] does show some cerebellar tonsillar crowding which could be Chiari I malformation. Patient will need MRI for appropriate measurements. Send her home with the printed result for that her doctor can see. Also give her some Fioricet for her headache. - Vital Signs Vital signs: Temp Pulse Resp BP Pulse Ox 98.8 F 107 H 15 122/79 97 01/17/19 20:34 01/17/19 20:34 01/17/19 20:34 01/17/19 20:34 01/17/19 20:34 Discharge - Discharge Clinical Impression: Abnormal computed tomography of head Headache Qualifiers: Headache type: unspecified Headache chronicity pattern: unspecified pattern Intractability: not intractable Qualified Code(s): R51 - Headache Condition: Good Disposition: HOME, SELF-CARE Additional Instructions: There are some possible abnormalities noted on your CT scan. Please carry the results of your CT scan to your doctor that here she may further assess them. You may need further imaging with MRI. Prescriptions: Butalb/Acetaminophen/Caffeine [Fioricet (50-325-40 mg) Tablet] 1 tab PO Q6HP PRN #12 tab PRN Reason: Referrals: AILEEN BRUNNER DO [Primary Care Provider] - 01/20/19 Print Language: Mauritian
--- NOTE | 2019-01-17 22:27 | RADIOLOGY REPORT (SQ) ---
EXAM DESCRIPTION: CT head without contrast CLINICAL HISTORY: 28 years Female; headaches and body numbness TECHNIQUE: Noncontrast CT head. All CT scans at this facility use dose modulation, iterative reconstruction, and/or weight based dosing when appropriate to reduce radiation dose to as low as reasonably achievable. COMPARISON: None. FINDINGS: There is crowding at the foramen magnum. Cerebellar tonsils extend approximately 6-7 mm below the foramen magnum, although artifact precludes reliable measurement. No hydrocephalus. No acute hemorrhage. No acute cortical hypodensity. Sulci are not as well-visualized as would be expected for this age. This raises some concern for global edema, such as with pseudotumor cerebri. Visualized portions of paranasal sinuses and mastoids are clear. Visualized portions of the calvarium are within normal limits. IMPRESSION: 1. 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 2. No acute hemorrhage or focal edema, although there is relatively more sulcal effacement than expected for patient's age. Please correlate with clinical history regarding possibility of pseudotumor cerebri. 3. MRI of the brain is recommended. This can be done noncontrast unless there is a history suggesting infection or malignancy, in which case contrast should be administered.
[2019-01-17 23:31] VITALS: BP 125/74
== END 2019-01-17 23:32 | disposition home or self-care (01) ==
LOC: ER 20:24
DX: R51 Headache (principal); R93.0 Abnormal findings on diagnostic imaging of skull and head, not elsewhere classified; R20.0 Anesthesia of skin; R20.2 Paresthesia of skin; J45.909 Unspecified asthma, uncomplicated; Z88.0 Allergy status to penicillin; Z88.1 Allergy status to other antibiotic agents; Z88.8 Allergy status to other drugs, medicaments and biological substances
CPT/HCPCS: 99284; 96361; 96374; 96375; 81025; 70450; J1200; J1885; J0780; J7030

== ENCOUNTER 2019-01-26 12:48 | Emergency (ER) | payer BC ==
--- NOTE | 2019-01-26 13:25 | ER Document Report ---
ED Medical Screen (RME) - General Chief Complaint: Chest Pain Stated Complaint: CHEST PAIN Time Seen by Provider: 01/26/19 13:06 Primary Care Provider: AILEEN BRUNNER DO [Primary Care Provider] - Follow up as needed Mode of Arrival: Ambulatory Information source: Patient Notes: Patient presents to the emergency department with complaints of chest pain. Patient reports chest pain and shortness of breath have been ongoing for at least a month. Patient reports symptoms have worsened over the last couple of days. Patient states she was seen here and had a negative x-ray but she states that she does not think the x-ray was taken well. Patient reports shortness of breath is worse when she lies down. Denies history of CHF. Patient requesting blood work on she states that she believes there is something dramatically wrong with her. Exam: Lung sounds are clear and equal bilaterally. Patient alert, oriented and answering all questions appropriately. I have greeted and performed a rapid initial assessment of this patient. A comprehensive ED assessment and evaluation of the patient, analysis of test results and completion of the medical decision making process will be conducted by additional ED providers. Dictation of this chart was performed using voice recognition software; therefore, there may be some unintended grammatical errors. TRAVEL OUTSIDE OF THE [place] IN LAST 30 DAYS: No - Related Data Allergies/Adverse Reactions: amoxicillin Allergy (Verified 01/08/19 17:47) clindamycin [Clindamycin] Allergy (Verified 01/08/19 17:47) metoclopramide [From Reglan] Allergy (Verified 01/08/19 17:47) Past Medical History - Past Medical History Cardiac Medical History: Denies: Hx Coronary Artery Disease, Hx Heart Attack, Hx Hypercholesterolemia, Hx Hypertension Pulmonary Medical History: Reports: Hx Asthma Denies: Hx Bronchitis, Hx COPD, Hx Pneumonia Neurological Medical History: Reports: Hx Migraine. Denies: Hx Cerebrovascular Accident, Hx Seizures Renal/ Medical History: Denies: Hx Peritoneal Dialysis GI Medical History: Reports: Hx Gastroesophageal Reflux Disease Musculoskeltal Medical History: Denies Hx Arthritis Skin Medical History: Reports Hx Eczema Past Surgical History: Reports: Hx Section - x2, Hx Cholecystectomy, Other - EGD 2 weeks ago, colonoscopy this morning - Immunizations Immunizations up to date: Yes Hx Diphtheria, Pertussis, Tetanus Vaccination: Yes - 2018 History of Influenza Vaccine for 07/2017 - 12/2017 Season: Yes Influenza Administration Date for 07/2017 - 12/2017 Season: 07/15/18 Physical Exam - Vital signs Vitals: Temp Pulse Resp BP Pulse Ox 97.9 F 92 16 128/84 H 99 01/26/19 12:58 01/26/19 12:58 01/26/19 12:58 01/26/19 12:58 01/26/19 12:58 Course - Vital Signs Vital signs: Temp Pulse Resp BP Pulse Ox 97.9 F 92 16 128/84 H 99 01/26/19 12:58 01/26/19 12:58 01/26/19 12:58 01/26/19 12:58 01/26/19 12:58 Doctor's Discharge - Discharge Referrals: AILEEN BRUNNER, [Primary Care Provider] - Follow up as needed
[2019-01-26 13:45] LABS: ABSOLUTE EOSINOPHILS # (AUTO) 0.1 10^3/uL (0.0-0.6); ABSOLUTE MONOCYTES (AUTO) 0.4 10^3/uL (0.1-1.4); ABSOLUTE NEUT (AUTO) 3.7 10^3/uL (1.7-8.2); BASOPHILS % (AUTO) 0.5 % (0-2); EOSINOPHILS % (AUTO) 1.8 % (0-6); HEMATOCRIT 36.9 % (36.0-47.0); HEMOGLOBIN 11.5 g/dL (12.0-15.5); LYMPHOCYTES % (AUTO) 19.7 % (13-45); MEAN CORPUSCULAR HEMOGLOBIN 21.9 pg (27.0-33.4); MEAN CORPUSCULAR HGB CONC 31.3 g/dL (32.0-36.0); MEAN CORPUSCULAR VOLUME 70 fl (80-97); MONOCYTES % (AUTO) 7.5 % (3-13); PLATELET COUNT 313 10^3/uL (150-450); RED BLOOD COUNT 5.27 10^6/uL (3.72-5.28); RED CELL DISTRIBUTION WIDTH 14.9 % (11.5-14.0); SEGMENTED NEUTROPHILS % (AUTO) 70.5 % (42-78); TOTAL CELLS COUNTED % (AUTO) 100 %; WHITE BLOOD COUNT 5.3 10^3/uL (4.0-10.5)
[2019-01-26 14:05] LABS: ALANINE AMINOTRANSFERASE 19 U/L (9-52); ALBUMIN 3.5 g/dL (3.5-5.0); ALKALINE PHOSPHATASE 85 U/L (38-126); ANION GAP 7 (5-19); ASPARTATE AMINO TRANSFERASE 22 U/L (14-36); BILIRUBIN,DIRECT 0.2 mg/dL (0.0-0.4); BILIRUBIN,TOTAL 0.2 mg/dL (0.2-1.3); BLOOD UREA NITROGEN 4 mg/dL (7-20); CARBON DIOXIDE 28 mmol/L (22-30); CHLORIDE 105 mmol/L (98-107); GLUCOSE 123 mg/dL (75-110); POTASSIUM 4.1 mmol/L (3.6-5.0); SODIUM 139.6 mmol/L (137-145); TOTAL PROTEIN 7.1 g/dL (6.3-8.2)
--- NOTE | 2019-01-26 14:18 | RADIOLOGY REPORT (SQ) ---
EXAM DESCRIPTION: CHEST 2 VIEWS COMPLETED DATE/TIME: 01/26/2019 1:48 pm REASON FOR STUDY: COUGH, SOB X1 MONTH. Asthma. COMPARISON: Chest x-ray 01/05/2019 EXAM PARAMETERS: NUMBER OF VIEWS: two views TECHNIQUE: Digital Frontal and Lateral radiographic views of the chest acquired. RADIATION DOSE: NA LIMITATIONS: none FINDINGS: LUNGS AND PLEURA: No consolidation, pneumothorax or pleural effusion. MEDIASTINUM AND HILAR STRUCTURES: No masses or contour abnormalities. HEART AND VASCULAR STRUCTURES: Heart normal size. No evidence for failure. BONES: No acute findings. HARDWARE: None in the chest. IMPRESSION: NO ACUTE RADIOGRAPHIC FINDING IN THE CHEST. TECHNICAL DOCUMENTATION: JOB ID: [id number] [employer]- All Rights Reserved Reading location - IP/workstation name: [email or web address]
--- NOTE | 2019-01-26 15:00 | ER Document Report ---
ED Cardiac - General Chief Complaint: Chest Pain Stated Complaint: CHEST PAIN Time Seen by Provider: 01/26/19 13:06 Primary Care Provider: AILEEN BRUNNER DO [Primary Care Provider] - Follow up as needed Mode of Arrival: Ambulatory Information source: Patient TRAVEL OUTSIDE OF THE [place] IN LAST 30 DAYS: No - HPI Patient complains to provider of: Chest tightness Notes: Patient is here with complaints of some chest tightness and some mild shortness of breath when she lays flat. This is been going on for a week. She states that she has had several episodes of similar symptoms in the past and has been seen multiple times in the past for similar symptoms. She does have a history of asthma. Right now she states that she just feels like she has some mild tightness in her upper chest. She lays flat it seems to be somewhat worse. She denies any significant cough. No fever. No syncope. She denies smoking, drug use, hypertension, high cholesterol, diabetes, CAD. She states that her mother has a history of congestive heart failure. She denies any recent long trips or surgeries, leg pain or leg swelling, hormone use, cancer, history of DVT or PE. Patient denies any other specific complaints at this time. No nausea, vomiting, diarrhea. No abdominal pain. No rash. - Related Data Allergies/Adverse Reactions: amoxicillin Allergy (Verified 01/08/19 17:47) clindamycin [Clindamycin] Allergy (Verified 01/08/19 17:47) metoclopramide [From Reglan] Allergy (Verified 01/08/19 17:47) Past Medical History - General Information source: Patient - Social History Smoking Status: Never Smoker Family History: Reviewed & Not Pertinent, CAD - Mother, Hypertension - Hypertension Patient has suicidal ideation: No Patient has homicidal ideation: No - Past Medical History Cardiac Medical History: Denies: Hx Coronary Artery Disease, Hx Heart Attack, Hx Hypercholesterolemia, Hx Hypertension Pulmonary Medical History: Reports: Hx Asthma Denies: Hx Bronchitis, Hx COPD, Hx Pneumonia Neurological Medical History: Reports: Hx Migraine. Denies: Hx Cerebrovascular Accident, Hx Seizures Renal/ Medical History: Denies: Hx Peritoneal Dialysis GI Medical History: Reports: Hx Gastroesophageal Reflux Disease Musculoskeletal Medical History: Denies Hx Arthritis Skin Medical History: Reports Hx Eczema Past Surgical History: Reports: Hx Section - x2, Hx Cholecystectomy, Other - EGD 2 weeks ago, colonoscopy this morning - Immunizations Immunizations up to date: Yes Hx Diphtheria, Pertussis, Tetanus Vaccination: Yes - 2018 Review of Systems - Review of Systems -: Yes All other systems reviewed and negative Physical Exam - Vital signs Vitals: Temp Pulse Resp BP Pulse Ox 97.9 F 92 16 128/84 H 99 01/26/19 12:58 01/26/19 12:58 01/26/19 12:58 01/26/19 12:58 01/26/19 12:58 - Notes Notes: GENERAL: alert, cooperative, nontoxic, no distress. HEAD: normocephalic, atraumatic EYES: conjunctiva pink without discharge, no external redness or swelling. EARS: no external swelling, no external redness NOSE: atraumatic, no external swelling MOUTH/THROAT: mucous membranes moist and pink, posterior pharynx without erythema, swelling, exudate. No trismus or drooling. NECK: soft, supple, full range of motion, no meningismus. CHEST: no distress, lungs clear and equal throughout. No wheezing, rales, rhonchi. CARDIAC: regular rate and rhythm, no murmur, normal capillary refill, normal pulses. No peripheral edema noted. ABDOMEN: Soft, nontender. BACK: full range of motion, no CVA tenderness. EXTREMITIES: full range of motion of all extremities. No redness, no swelling. NEURO: alert and oriented x 3, no focal deficits, full range of motion of all extremities. PYSCH: appropriate mood, affect. Patient is cooperative. SKIN: pink, warm, dry, no rash. Course - Re-evaluation Re-evalutation: 01/26/19 15:12 Patient is nontoxic-appearing with stable vitals. The patient is here with complaints of some chest tightness in her upper chest seems to be somewhat worse when she lays flat. This been going on for over a week now. 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 She denies any fever. She denies any recent long trips or surgeries, she has no PE risk factors, she is PERC rule negative for PE, therefore no further provocative testing for pulmonary embolism is indicated at this time. EKG is negative. Heart score is 1. Troponin is negative. Chest x-ray is negative. BNP is normal. Patient's lungs are clear. She is satting 100% on room air. She is not in any respiratory distress. This point believe that the patient can be discharged home based on the fact that her symptoms do not sound ACS in nature, EKG and troponin are negative, she has a heart score of 1. This point I would like for the patient to follow-up with either her primary care doctor or her cut off machine operator at the next available appointment. She should follow-up sooner if she develops any worsening symptoms, high fevers, difficulty breathing, persistent vomiting, or has any further concerns. - Vital Signs Vital signs: Temp Pulse Resp BP Pulse Ox 97.9 F 92 16 128/84 H 99 01/26/19 12:58 01/26/19 12:58 01/26/19 12:58 01/26/19 12:58 01/26/19 14:51 - Laboratory Result Diagrams: 01/26/19 13:23 01/26/19 13:23 Laboratory results interpreted by me: 01/26/19 01/26/19 13:23 13:23 Hgb 11.5 L MCV 70 L MCH 21.9 L MCHC 31.3 L RDW 14.9 H BUN 4 L Glucose 123 H - Diagnostic Test Radiology reviewed: Image reviewed, Reports reviewed - Chest x-ray negative - EKG Interpretation by Me EKG shows normal: Sinus rhythm, [place], Intervals, QRS Complexes, ST-T Waves Rate: Normal When compared to previous EKG there are: Other - Rate of 92, no ST-T wave eleva tion or depression, no STEMI. Discharge - Discharge Clinical Impression: Chest tightness Condition: Stable Disposition: HOME, SELF-CARE Instructions: Chest Pain of Unclear Cause ([facility]) Additional Instructions: Follow-up with your primary care doctor and your cut off machine operator at the next available appointment. Follow-up sooner for worsening symptoms, high fever, persistent vomiting, or for any further concerns. Forms: Elevated Blood Pressure, Smoking Cessation Education Referrals: AILEEN BRUNNER, [Primary Care Provider] - Follow up as needed
[2019-01-26 16:08] VITALS: BP 135/100
--- NOTE | 2019-01-26 23:41 | EKG REPORT ---
SEVERITY:- NORMAL ECG - SINUS RHYTHM : Confirmed by: Karol Leahy 26-Jan-2019 23:40:59
== END 2019-01-26 16:08 | disposition home or self-care (01) ==
LOC: ER 12:48
DX: R07.89 Other chest pain (principal); R06.02 Shortness of breath; J45.909 Unspecified asthma, uncomplicated; Z82.49 Family history of ischemic heart disease and other diseases of the circulatory system; Z88.0 Allergy status to penicillin; Z88.1 Allergy status to other antibiotic agents; Z88.8 Allergy status to other drugs, medicaments and biological substances
CPT/HCPCS: 36415; 71046; 80053; 83880; 84484; 85025; 93005; 93010; 99284

== ENCOUNTER → 2019-02-04 | Outpatient (CLI) | payer BC | LOC: OD 16:47 | PROVIDERS: ATTEND Otolaryngology | DX: J30.9 Allergic rhinitis, unspecified (principal) | CPT/HCPCS: 36415; 82785; 86003 ==

== ENCOUNTER → 2019-02-07 | Outpatient (CLI) | payer BC ==
--- NOTE | 2019-02-07 18:23 | XCELERA REPORT ---
[address] [place] [facility] [address] Lower Extremity Venous Evaluation Procedure: Color flow and duplex imaging of the veins of the left lower extremity as well as the right Common Femoral vein. Right Sided Venous Evaluation The right common femoral vein is fully compressible. Spontaneous and phasic flow is present in the right common femoral vein. Left Sided Venous Evaluation Normal vessel filling wall to wall, compression and augmentation as well as Colour flow down to the infrageniculate veins. Interpretation Summary No duplex evidence of DVT or obstruction in the left lower extremity nor in the right Common Femoral vein. Name: KARELY TREVINO Age: 28 yrs Gender: Female : 1990 Patient Status: Outpatient Patient Location: RAD Study Date: 02/07/2019 05:37 PM Reason For Study: LLE SWELLING Ordering Physician: AILEEN BRUNNER Performed By: Michelle Arreola : AILEEN BRUNNER > Chintan Ariza
== END ==
LOC: RAD 17:20
PROVIDERS: ATTEND Student in an Organized Health Care Education/Training Program
DX: M79.605 Pain in left leg (principal)
CPT/HCPCS: 93971

== ENCOUNTER → 2019-03-05 | Outpatient (CLI) | payer BC ==
--- NOTE | 2019-03-05 19:09 | RADIOLOGY REPORT (SQ) ---
EXAM DESCRIPTION: U/S THYROID/SFT TISS HD NECK COMPLETED DATE/TIME: 03/05/2019 6:54 pm REASON FOR STUDY: THYROMEGALY COMPARISON: None. TECHNIQUE: Dynamic and static sarah-scale images acquired of the thyroid gland. Selected additional c olor/power Doppler images recorded. All images stored to PACS. LIMITATIONS: None. FINDINGS: RIGHT LOBE: Mildly enlarged, 5.6 x 2.1 x 1.8 cm. Homogeneous echotexture. No cystic or s olid masses. LEFT LOBE: Mildly enlarged, 5.3 x 2.3 x 1.7 cm. Homogeneous echotexture. 3 small cysts are present. The largest measures 7 mm. ISTHMUS: Normal size, 3 mm. Homogeneous echotexture. No cystic or solid masses. OTHER: No other significant finding. IMPRESSION: The gland is mildly enlarged. There are 3 small cysts in the left lobe. No other signi ficant findings. TECHNICAL DOCUMENTATION: JOB ID: [id number] [employer]- All Rights Reserved Reading location - IP/workstation name: [email or web address]
== END ==
LOC: RAD 17:46
PROVIDERS: ATTEND Student in an Organized Health Care Education/Training Program
DX: E01.0 Iodine-deficiency related diffuse (endemic) goiter (principal)
CPT/HCPCS: 76536

== ENCOUNTER 2019-05-02 15:56 | Emergency (ER) | payer BC ==
--- NOTE | 2019-05-02 18:29 | ER Document Report ---
ED Medical Screen (RME) - General Chief Complaint: Shortness Of Breath Stated Complaint: BREATHING PROBLEMS Time Seen by Provider: 05/02/19 18:19 Primary Care Provider: FRAN TIDWELL MD [Primary Care Provider] - Follow up as needed Mode of Arrival: Ambulatory Information source: Patient Notes: This is a 29-year-old female with a plethora of complaints to include diffuse "burning 'from the inside' from her head all the way to her toes. She also complains of some unexplained bruising to her left medial proximal tibia and right lateral proximal fibula that are mildly tender to palpate. She has no actual other posterior calf pain/tenderness/swelling. No history of unexplained bruising or easy bleeding or clotting disorders before in the past. No history of anemia. No acute blood loss symptoms. She states her symptoms have been ongoing for 2 days. She also complains of intermittent substernal dull chest ache for 2 days. She states she can just be doing anything sitting or moving and it will happen. She thinks it feels a little different than her reflux. Pt denies any prior personal cardiac history. denies any family history of sudden or cardiac dz at a young age. no syncope. no palpitations. no hx of mi, cva, tia, or cad. no ripping or tearing sensation. denies any blood thinners. No prior history of blood clots. No recent long distance travel/immobilization, recent surgery, exogenous estrogen use, hemoptysis, history of cancer, or calf pain/swelling. No prior history of arrhythmias. last menstrual period last week. She has not sought care until now. Also of note patient's prescriber did increase her Celexa dose the day before all of this started. She states she has had some decreased p.o. intake and may be a little dehydrated. No known fall or trauma. Her PCP recently moved and she is supposed to establish with Giovani Anne for her initial visit end of May. No other changes in medication or diet. She states she only came in because her coworker told her she needed to come in to get checked out. Is taken Tylenol with minimal improvement of her symptoms. She is able to walk. No history of this before. >>>> PHYSICAL_EXAM: GENERAL_APPEARANCE: well_nourished, alert, cooperative, no_acute_distress, no_obvious_discomfort. pleasant, obese, young, black female, smiling, speaking in full sentences, in no sign of pain or resp distress, no one is with her. VITALS: reviewed, see vital signs table. HEAD: no_swelling\\tenderness on the head. normocephalic. atraumatic. no carrero signs. no raccoons eyes. EYES: PERRL, EOMI, conjunctiva_clear. No scleral icterus or subconjunctival hemorrhage. No hyphema NOSE: no_nasal_discharge. MOUTH: (-)decreased moisture. THROAT: no_tonsilar_inflammation/exudates/hypertrophy, no_airway_obstruction. no_lymphadenopathy NECK: supple, no_neck_tenderness, full rom. full strength. BACK: no_back_tenderness. CHEST_WALL: no_chest_tenderness. no overlying skin changes LUNGS: no_wheezing, ctab (-)accessory muscle use, good air exchange bilateral. HEART: normal_rate, normal_rhythm, no_murmur, ABDOMEN: normal_BS, soft, no_abd_tenderness, (-)guarding, (-)rebound, no distension or peritoneal signs. no cva ttp EXTREMITIES: strength 5/5 in all_extremities, good pulses in all_extremities, no_swelling\\tenderness in the extremities other than over a few approximate 3 cm bruises on her bilateral lower extremities as described in HPI. No crepitation. No sign of infection. No drainage, bleeding, streaking, induration or fluctuation. No sign of compartment syndrome or septic joint or gout. No other grossly visible bruising or signs of trauma, no_edema. full rom. normal gait. good pulses. brisk cap refill. 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 neg nadir sign NEURO: motor and sensation intact, cranial nerves 2-12 intact, cerebellar fxn intact SKIN: warm, dry, good_color, no_rash. MENTAL_STATUS: speech_clear, oriented_X_3, normal_affect, responds_appro priately to questions. I have ordered labs and basic work-up which are pending at this time and will be reviewed by another ED provider. I have greeted and performed a rapid initial assessment of this patient. A comprehensive ED assessment and evaluation of the patient, analysis of test results and completion of medical decision making process will be conducted by an additional ED providers. Documentation achieved through voice recording which my lead to some occasional accidental typographical errors. Extensive efforts have been made to proof read documentation to make sure these are the least as possible. TRAVEL OUTSIDE OF THE [place] IN LAST 30 DAYS: No - Related Data Allergies/Adverse Reactions: amoxicillin Allergy (Verified 05/02/19 15:58) clindamycin [Clindamycin] Allergy (Verified 05/02/19 15:58) metoclopramide [From Reglan] Allergy (Verified 05/02/19 15:58) Past Medical History - Past Medical History Cardiac Medical History: Denies: Hx Coronary Artery Disease, Hx Heart Attack, Hx Hypercholesterolemia, Hx Hypertension Pulmonary Medical History: Reports: Hx Asthma Denies: Hx Bronchitis, Hx COPD, Hx Pneumonia Neurological Medical History: Reports: Hx Migraine. Denies: Hx Cerebrovascular Accident, Hx Seizures Renal/ Medical History: Denies: Hx Peritoneal Dialysis GI Medical History: Reports: Hx Gastroesophageal Reflux Disease Musculoskeltal Medical History: Denies Hx Arthritis Skin Medical History: Reports Hx Eczema Past Surgical History: Reports: Hx Section - x2, Hx Cholecystectomy, Other - EGD 2 weeks ago, colonoscopy this morning - Immunizations Immunizations up to date: Yes Hx Diphtheria, Pertussis, Tetanus Vaccination: Yes - 2018 History of Influenza Vaccine for 07/2017 - 12/2017 Season: Yes Influenza Administration Date for 07/2017 - 12/2017 Season: 07/15/18 Physical Exam - Vital signs Vitals: Temp Pulse Resp BP Pulse Ox 98.2 F 92 18 143/85 H 98 05/02/19 16:00 05/02/19 16:00 05/02/19 16:00 05/02/19 16:00 05/02/19 16:00 Course - Vital Signs Vital signs: Temp Pulse Resp BP Pulse Ox 98.2 F 92 18 143/85 H 98 05/02/19 16:00 05/02/19 16:00 05/02/19 16:00 05/02/19 16:00 05/02/19 16:00 Doctor's Discharge - Discharge Referrals: FRAN TIDWELL MD [Primary Care Provider] - Follow up as needed
[2019-05-02] MEDS ORDERED: ONDANSETRON 4 MG TAB.RAPDIS PO ONE (18:31)
[2019-05-02] MEDS ORDERED: MAG HYDROX/AL HYDROX/SIMETH SUSP 30 ML UDCUP PO ONE (18:32)
[2019-05-02] MEDS ORDERED: LIDOCAINE 2% VISCOUS SOLN 20 ML UDCUP PO ONE (18:32)
--- NOTE | 2019-05-02 19:15 | RADIOLOGY REPORT (SQ) ---
EXAM DESCRIPTION: CHEST 2 VIEWS COMPLETED DATE/TIME: 05/02/2019 7:05 pm REASON FOR STUDY: chest pain COMPARISON: 01/26/2019 TECHNIQUE: Frontal and lateral radiographic views of the chest acquired. NUMBER OF VIEWS: Two view. LIMITATIONS: None. FINDINGS: LUNGS AND PLEURA: No pneumothorax. No consolidation or pleural effusion. MEDIASTINUM AND HILAR STRUCTURES: Stable. HEART AND VASCULAR STRUCTURES: Stable. BONES: No acute findings. HARDWARE: None in the chest. OTHER: No other significant finding. IMPRESSION: NO ACUTE FINDINGS. TECHNICAL DOCUMENTATION: JOB ID: [id number] [place]-72 2010 [employer]- All Rights Reserved Reading location - IP/workstation name: [email or web address]
[2019-05-02 19:42] LABS: ABSOLUTE EOSINOPHILS # (AUTO) 0.1 10^3/uL (0.0-0.6); ABSOLUTE LYMPHOCYTES (AUTO) 1.5 10^3/uL (0.5-4.7); ABSOLUTE MONOCYTES (AUTO) 0.5 10^3/uL (0.1-1.4); ABSOLUTE NEUT (AUTO) 3.9 10^3/uL (1.7-8.2); BASOPHILS % (AUTO) 0.4 % (0-2); EOSINOPHILS % (AUTO) 2.3 % (0-6); HEMATOCRIT 38.2 % (36.0-47.0); LYMPHOCYTES % (AUTO) 24.8 % (13-45); MEAN CORPUSCULAR HGB CONC 31.5 g/dL (32.0-36.0); MEAN CORPUSCULAR VOLUME 70 fl (80-97); MONOCYTES % (AUTO) 8.5 % (3-13); PLATELET COUNT 355 10^3/uL (150-450); RED BLOOD COUNT 5.47 10^6/uL (3.72-5.28); RED CELL DISTRIBUTION WIDTH 15.1 % (11.5-14.0); TOTAL CELLS COUNTED % (AUTO) 100 %; WHITE BLOOD COUNT 6.1 10^3/uL (4.0-10.5)
[2019-05-02 19:49] LABS: INTERNATIONAL RATION (INR) 0.96; PROTHROMBIN TIME 12.8 SEC (11.4-15.4)
[2019-05-02 19:50] LABS: PARTIAL THROMBOPLASTIN TIME 35.9 SEC (23.5-35.8)
[2019-05-02 19:51] LABS: APPEARANCE,URINE SLIGHTLY-CLOUDY; BILIRUBIN,URINE NEGATIVE (NEGATIVE); COLOR,URINE YELLOW; GLUCOSE, URINE NEGATIVE (NEGATIVE); KETONES,URINE 20 mg/dL (NEGATIVE); LEUKOCYTE ESTERASE,URINE NEGATIVE (NEGATIVE); NITRITE,URINE NEGATIVE (NEGATIVE); PROTEIN,URINE NEGATIVE (NEGATIVE); URINE SPECIFIC GRAVITY 1.026
[2019-05-02 19:52] LABS: D-DIMER 0.95 ug/mL (0.00-0.50)
[2019-05-02 19:59] LABS: ALANINE AMINOTRANSFERASE 18 U/L (9-52); ALKALINE PHOSPHATASE 84 U/L (38-126); ANION GAP 6 (5-19); ASPARTATE AMINO TRANSFERASE 18 U/L (14-36); BILIRUBIN,DIRECT 0.2 mg/dL (0.0-0.4); BILIRUBIN,TOTAL 0.3 mg/dL (0.2-1.3); BLOOD UREA NITROGEN 7 mg/dL (7-20); CALCIUM 9.3 mg/dL (8.4-10.2); CARBON DIOXIDE 29 mmol/L (22-30); CHLORIDE 104 mmol/L (98-107); GLUCOSE 84 mg/dL (75-110); POTASSIUM 4.3 mmol/L (3.6-5.0); SODIUM 139.2 mmol/L (137-145); TOTAL PROTEIN 7.3 g/dL (6.3-8.2)
[2019-05-02 20:11] LABS: CREATINE KINASE MB < 0.22 ng/mL (<4.55); TROPONIN I < 0.012 ng/mL
--- NOTE | 2019-05-02 22:16 | ER Document Report ---
ED General - General Chief Complaint: Shortness Of Breath Stated Complaint: BREATHING PROBLEMS Time Seen by Provider: 05/02/19 18:19 Primary Care Provider: FRAN TIDWELL MD [ACTIVE STAFF] - Follow up as needed Mode of Arrival: Ambulatory Notes: Patient is a 29-year-old female who presents to the emergency department with a chief complaint of shortness of breath. She states that she felt short of breath but 2 days ago. She also states that she has had some bruising on her left lower leg at the medial proximal tibial area. She states that she noticed that she is having some bruising. She denies any history of a DVT in the past. She states that a week ago she went to [place], which was a 3-hour trip. She denies any control use, smoking, , cancer, or other risk factors that could lead to a pulmonary emboli or DVT. Patient also does have a history of GERD and anxiety. She states that she increased her Celexa on Sunday. She is supposed to be on pantoprazole, but has stopped using it. Patient also has asthma. She states that she has not used her pro-air for the past 2 days because she feels like she has not needed it. She denies any feeling of an asthma exacerbation. TRAVEL OUTSIDE OF THE [place] IN LAST 30 DAYS: No - Related Data Allergies/Adverse Reactions: amoxicillin Allergy (Verified 05/02/19 15:58) clindamycin [Clindamycin] Allergy (Verified 05/02/19 15:58) metoclopramide [From Reglan] Allergy (Verified 05/02/19 15:58) Past Medical History - General Information source: Patient - Social History Smoking Status: Never Smoker Chew tobacco use (# tins/day): No Frequency of alcohol use: None Family History: Reviewed & Not Pertinent, CAD - Mother, Hypertension - Hypertension Patient has suicidal ideation: No Patient has homicidal ideation: No - Past Medical History Cardiac Medical History: Denies: Hx Coronary Artery Disease, Hx Heart Attack, Hx Hypercholesterolemia, Hx Hypertension Pulmonary Medical History: Reports: Hx Asthma Denies: Hx Bronchitis, Hx COPD, Hx Pneumonia Neurological Medical History: Reports: Hx Migraine. Denies: Hx Cerebrovascular Accident, Hx Seizures Renal/ Medical History: Denies: Hx Peritoneal Dialysis GI Medical History: Reports: Hx Gastroesophageal Reflux Disease Musculoskeletal Medical History: Denies Hx Arthritis Skin Medical History: Reports Hx Eczema Past Surgical History: Reports: Hx Section - x2, Hx Cholecystectomy, Other - EGD 2 weeks ago, colonoscopy this morning - Immunizations Immunizations up to date: Yes Hx Diphtheria, Pertussis, Tetanus Vaccination: Yes - 2017 Review of Systems - Review of Systems Notes: REVIEW OF SYSTEMS: CONSTITUTIONAL : Denies recent illness. Denies recent unintentional weight loss. Denies fever, chills, or sweats. EENT: Denies eye, ear, throat, or mouth pain, discharge, or symptoms. Denies nasal or sinus congestion. CARDIOVASCULAR: See HPI RESPIRATORY: See HPI GASTROINTESTINAL: Denies nausea, vomiting, and diarrhea. Denies abdominal pain. Denies constipation. GENITOURINARY: Denies difficulty urinating, burning, blood in urine, urgency or frequency. MUSCULOSKELETAL: See HPI SKIN: Denies rash, itchiness, or lesions HEMATOLOGIC : Denies easy bruising or bleeding. LYMPHATIC: Denies swollen, painful, enlarged glands. NEUROLOGICAL: Denies no numbness or tingling denies weakness. Denies headache. Denies altered mental status. Denies alteration in speech. PSYCHIATRIC: Denies stress, anxiety, alteration in sleep patterns, or depression. All other systems reviewed and negative. Physical Exam - Vital signs Vitals: Temp Pulse Resp BP Pulse Ox 98.2 F 92 18 143/85 H 98 05/02/19 16:00 05/02/19 16:00 05/02/19 16:00 05/02/19 16:00 05/02/19 16:00 - Notes Notes: PHYSICAL EXAMINATION: GENERAL: Appears well, healthy, well-nourished, no acute distress. HEAD: Normocephalic, atraumatic. EYES: PERRL, conjunctiva normal, all extraocular movements intact, sclera nonicteric ENT: Moist mucous membranes. NECK: Supple, no noticeable swelling, redness, rash. Normal range of motion. LUNGS: Equal breath sounds bilaterally and clear to auscultation. No wheezes rales or rhonchi. CARDIOVASCULAR: S1-S2, regular rate, regular rhythm. Radial pulses 2+, normal. ABDOMEN: Normoactive bowel sounds. Soft, nontender, no guarding, no rebound tenderness, and no masses palpated. EXTREMITIES: Normal strength and range of motion, no pitting or edema. No cyanosis. NEUROLOGICAL: Moves all extremities upon command. Strength 5/5 in all extremities. PSYCH: Anxious. SKIN: Warm, dry. No rash, lesions, ulcerations noted. Normal skin turgor. Small amount of bruising noted to left antecubital area and left medial proximal tibia area. Course - Re-evaluation Re-evalutation: 05/02/19 The patient's d-dimer was ordered in triage is 0.95. Patient will be sent for a CT of the chest to rule out a pulmonary emboli. Patient's chest x-ray was normal. Troponin is negative. CBC and chemistries are grossly unremarkable. 05/03/19 01:[address] a of the chest is negative for any acute pulmonary emboli at this time. CT shows that she does have a hiatal hernia. This may be the cause of her pain. She has a GI doctor that she already sees. I will have her follow-up with them. Venous Doppler studies are unavailable at this time. She will follow-up via outpatient. The patient is nervous about follow-up with me the results of her tests. I told her that if the results are positive and she needs to come back to the emergency department to to be placed on anticoagulants. Follow-up precautions were given. Verbal discharge instructions were given to the patient. They verbalized understanding. They are stable for discharge. 05/03/19 14:27 I called the patient and left message on her phone saying that her bilateral venous Doppler study was normal. I gave her option given a call back if she had any questions. - Vital Signs Vital signs: Temp Pulse Resp BP Pulse Ox 98.1 F 86 21 H 123/78 98 05/03/19 02:08 05/03/19 02:08 05/03/19 02:08 05/03/19 02:08 05/03/19 02:08 - Laboratory Result Diagrams: 05/02/19 19:15 05/02/19 19:15 Laboratory results interpreted by me: 05/02/19 05/02/19 05/02/19 19:15 19:15 19:15 RBC 5.47 H MCV 70 L MCH 22.0 L MCHC 31.5 L RDW 15.1 H APTT 35.9 H D-Dimer 0.95 H Urine Ketones 20 H Urine Urobilinogen 4.0 H Discharge - Discharge Clinical Impression: Hiatal hernia Lower extremity pain Qualifiers: Laterality: bilateral Qualified Code(s): M79.604 - Pain in right leg Condition: Stable Disposition: HOME, SELF-CARE Additional Instructions: You were seen today in the emergency department for shortness of breath and lower extremity pain. Your CT did not show any blood clot. Please follow-up tomorrow morning to have the ultrasound done of your legs. Your CT also showed that you had a hiatal hernia. Please make sure you take your GERD medication and follow-up with your GI doctor. If you have worsening symptoms, develop worsening shortness of breath, or have any symptoms that are worrisome to you, please return to the emergency department. Forms: Follow-Up Radiology Testing Referrals: FRAN TIDWELL MD [ACTIVE STAFF] - Follow up as needed
[2019-05-03] MEDS ORDERED: ACETAMINOPHEN 325 MG TABLET PO ONE (00:31)
--- NOTE | 2019-05-03 00:38 | RADIOLOGY REPORT (SQ) ---
CT CHEST ANGIOGRAPHY WITHOUT THEN WITH IV CONTRAST EXAM DATE: 05/02/2019 10:09 PM CDT HISTORY: Shortness of breath. COMPARISON: None. TECHNIQUE: CT angiogram of the chest with IV contrast. 3-D MIP images were obtained in coronal and sagittal reconstructions. This exam was performed according to our departmental dose-optimization program, which includes automated exposure control, adjustment of the mA and/or kV according to patient size and/or use of iterative reconstruction technique. FINDINGS: No filling defects are identified in the pulmonary trunk, main left and right pulmonary arteries, or the segmental branches. The thyroid gland is normal. No mediastinal or hilar adenopathy. The heart size is normal without pericardial effusion. The thoracic aorta is normal caliber. No consolidation, pleural effusion, or pneumothorax is identified. The visualized upper abdomen demonstrates a small hiatal hernia. No acute osseous findings are seen. IMPRESSION: No acute pulmonary embolism.
[2019-05-03 02:10] VITALS: BP 123/78
--- NOTE | 2019-05-03 10:11 | EKG REPORT ---
SEVERITY:- NORMAL ECG - SINUS RHYTHM : Confirmed by: Rohan Herndon MD 03-May-2019 10:09:51
== END 2019-05-03 02:08 | disposition home or self-care (01) ==
LOC: ER 15:56
DX: K44.9 Diaphragmatic hernia without obstruction or gangrene (principal); K21.9 Gastro-esophageal reflux disease without esophagitis; M79.604 Pain in right leg; S80.12XA Contusion of left lower leg, initial encounter; S50.02XA Contusion of left elbow, initial encounter; X58.XXXA Exposure to other specified factors, initial encounter; M79.605 Pain in left leg; J45.909 Unspecified asthma, uncomplicated; R06.02 Shortness of breath; Z79.899 Other long term (current) drug therapy; Z88.0 Allergy status to penicillin; Z88.1 Allergy status to other antibiotic agents; Z88.8 Allergy status to other drugs, medicaments and biological substances
CPT/HCPCS: 93005; 99285; 36415; 82553; 82550; 83735; 85025; 85610; 85730; 81025; 80053; 81001; 84484; 85379; 71046; 71275; 93010; S0119; J3490

== ENCOUNTER → 2019-05-03 | Outpatient (CLI) | payer BC ==
--- NOTE | 2019-05-03 11:48 | XCELERA REPORT ---
[address] [facility] [address] Lower Extremity Venous Evaluation Procedure: Color flow and duplex imaging bilaterally of the veins of the lower extremities as well as the Common Femoral veins. Right Sided Venous Evaluation Normal vessel filling wall to wall, compression and augmentation as well as Colour flow down to the infrageniculate veins. Left Sided Venous Evaluation Normal vessel filling wall to wall, compression and augmentation as well as Colour flow down to the infrageniculate veins. Interpretation Summary No duplex evidence of DVT or obstruction in the bilateral lower extremities. Name: KARELY TREVINO Age: 29 yrs Gender: Female : 1990 Patient Status: Outpatient Patient Location: Study Date: 05/03/2019 09:07 AM Reason For Study: LOWER EXTREMITY PAIN Ordering Physician: STORM DUENAS Performed By: Fabian Romero : STORM DUENAS > Chintan Ariza
== END ==
LOC: SP 08:39
PROVIDERS: ATTEND Nurse Practitioner
DX: M79.605 Pain in left leg (principal); M79.604 Pain in right leg
CPT/HCPCS: 93970

== ENCOUNTER 2019-05-25 17:48 | Emergency (ER) | payer BC ==
--- NOTE | 2019-05-25 18:38 | ER Document Report ---
ED Respiratory Problem - General Chief Complaint: Shortness Of Breath Stated Complaint: SOB Time Seen by Provider: 05/25/19 18:21 Primary Care Provider: STORM DUENAS [Primary Care Provider] - Follow up as needed Notes: 29-year-old female patient emergency department chief complaint shortness of breath. States that she has had multiple work-ups in the past. Always has an elevated d-dimer. Has had a CT scan. Recently seen in the ER and had CT scan and ultrasound performed. States that she was having some shortness of breath and tightness in her chest today. All of the sudden began to have numbness, tingling, loss of sensation to her fingers and face. Did not feel right. States that she passed out. Did not hit her head. Denies any pain. TRAVEL OUTSIDE OF THE [place] IN LAST 30 DAYS: No - HPI Onset: Just prior to arrival Quality of pain: Achy Severity: Mild Pain Level: 1 Context: Hx asthma Short of Breath: Moderate Chest pain/discomfort: Heaviness - Related Data Allergies/Adverse Reactions: amoxicillin Allergy (Verified 05/02/19 15:58) clindamycin [Clindamycin] Allergy (Verified 05/02/19 15:58) metoclopramide [From Reglan] Allergy (Verified 05/02/19 15:58) Past Medical History - General Information source: Patient - Social History Smoking Status: Never Smoker Frequency of alcohol use: None Drug Abuse: None Lives with: Family Family History: Reviewed & Not Pertinent, CAD - Mother, Hypertension - Hypertension - Past Medical History Cardiac Medical History: Denies: Hx Coronary Artery Disease, Hx Heart Attack, Hx Hypercholesterolemia, Hx Hypertension Pulmonary Medical History: Reports: Hx Asthma Denies: Hx Bronchitis, Hx COPD, Hx Pneumonia Neurological Medical History: Reports: Hx Migraine. Denies: Hx Cerebrovascular Accident, Hx Seizures Renal/ Medical History: Denies: Hx Peritoneal Dialysis GI Medical History: Reports: Hx Gastroesophageal Reflux Disease Musculoskeletal Medical History: Denies Hx Arthritis Skin Medical History: Reports Hx Eczema Past Surgical History: Reports: Hx Section - x2, Hx Cholecystectomy, Other - EGD 2 weeks ago, colonoscopy this morning - Immunizations Immunizations up to date: Yes Hx Diphtheria, Pertussis, Tetanus Vaccination: Yes - 2018 Review of Systems - Review of Systems Notes: Constitutional: denies: Chills, Diaphoresis, Fever, Malaise, Weakness EENT: denies: Eye discharge, Blurred vision, Tearing, Double vision, Nose congestion, Nose discharge, Throat swelling, Mouth pain Cardiovascular: denies: Palpitations, Heart racing, Orthopnea, Dyspnea, +Chest pain Respiratory: denies: Cough, Hurts to breathe, Wheezing, +Shortness of breath Gastrointestinal: denies: Abdominal pain, Diarrhea, Nausea, Vomiting, Black stools, bright red blood in stool Genitourinary: denies: Burning, Dysuria, Discharge, Frequency, Flank pain, Hematuria Musculoskeletal: denies: Joint pain, Joint swelling, Muscle pain, Muscle stiff ness, back pain Hematologic/Lymphatic: denies: Anemia, Easy bleeding, Easy bruising, Blood clots Neurological/Psychological: denies: Confusion, Dementia, Depression, Loss of consciousness+ tingling feeling of fingers and face. Skin: No lesions, no masses, no skin breakdown, no abscesses Physical Exam - Vital signs Vitals: Resp Pulse Ox 13 100 05/25/19 18:21 05/25/19 18:21 Interpretation: Normal - General General appearance: Appears well, Alert - HEENT Head: Normocephalic, Atraumatic Eyes: Normal Pupils: PERRL - Respiratory Respiratory status: No respiratory distress Chest status: Nontender Breath sounds: Normal Chest palpation: Normal - Cardiovascular Rhythm: Regular Heart sounds: Normal auscultation Murmur: No - Abdominal Inspection: Normal Distension: No distension Bowel sounds: Normal Tenderness: Nontender Organomegaly: No organomegaly - Back Back: Normal, Nontender - Extremities General upper extremity: Normal inspection, Nontender, Normal color, Normal ROM, Normal temperature General lower extremity: Normal inspection, Nontender, Normal color, Normal ROM, Normal temperature, Normal weight bearing. No: Yuko's sign - Neurological Neuro grossly intact: Yes Cognition: Normal Orientation: AAOx4 [place] Coma Scale Eye Opening: Spontaneous Liana Coma Scale Verbal: Oriented L[place] Coma Scale Motor: Obeys Commands Liana Coma Scale Total: 15 Speech: Normal Motor strength normal: LUE, RUE, LLE, RLE Sensory: Normal - Psychological Associated symptoms: Normal affect, Normal mood - Skin Skin Temperature: Warm Skin Moisture: Dry Skin Color: Normal Course - Re-evaluation Re-evalutation: 05/25/19 20:47 Laboratory 05/25/19 05/25/19 05/25/19 18:23 18:23 18:23 WBC 5.8 RBC 5.25 Hgb 11.6 L Hct 36.3 MCV 69 L MCH 22.1 L MCHC 31.9 L RDW 14.4 H Plt Count 346 Seg Neutrophils % 57.5 Lymphocytes % 28.9 Monocytes % 9.6 Eosinophils % 3.3 Basophils % 0.7 Absolute Neutrophils 3.3 Absolute Lymphocytes 1.7 Absolute Monocytes 0.6 Absolute Eosinophils 0.2 Absolute Basophils 0.0 VBG pH VBG pCO2 VBG HCO3 VBG Base Excess Sodium 137.2 Potassium 3.9 Chloride 104 Carbon Dioxide 23 Anion Gap 10 BUN 5 L Creatinine 0.66 Est GFR ( Amer) > 60 Est GFR (Non-Af Amer) > 60 Glucose 93 Calcium 9.4 Total Bilirubin 0.5 Direct Bilirubin 0.2 Neonat Total Bilirubin Not Reportable Neonat Direct Bilirubin Not Reportable Neonat Indirect Bili Not Reportable AST 22 ALT 11 Alkaline Phosphatase 87 Creatine Kinase 54 CK-MB (CK-2) < 0.22 Troponin I < 0.012 NT-Pro-B Natriuret Pep 40 Total Protein 7.4 Albumin 4.0 Urine Color Urine Appearance Urine pH Ur Specific [place] Urine Protein Urine Glucose (UA) Urine Ketones Urine Blood Urine Nitrite Urine Bilirubin Urine Urobilinogen Ur Leukocyte Esterase Urine WBC (Auto) Urine RBC (Auto) Squamous Epi Cells Auto Urine Mucus (Auto) Urine Ascorbic Acid Urine HCG, Qual Urine Opiates Screen Urine Methadone Screen Ur Barbiturates Screen Ur Phencyclidine Scrn Ur Amphetamines Screen U Benzodiazepines Scrn Urine Cocaine Screen U Marijuana (THC) Screen 05/25/19 05/25/19 05/25/19 18:41 19:35 19:35 WBC RBC Hgb Hct MCV MCH MCHC RDW Plt Count Seg Neutrophils % Lymphocytes % Monocytes % Eosinophils % Basophils % Absolute Neutrophils Absolute Lymphocytes Absolute Monocytes Absolute Eosinophils Absolute Basophils VBG pH 7.48 H VBG pCO2 37.0 VBG HCO3 27.2 VBG Base Excess 3.7 Sodium Potassium Chloride Carbon Dioxide Anion Gap BUN Creatinine Est GFR ( Amer) Est GFR (Non-Af Amer) Glucose Calcium Total Bilirubin Direct Bilirubin Neonat Total Bilirubin Neonat Direct Bilirubin Neonat Indirect Bili AST ALT Alkaline Phosphatase Creatine Kinase CK-MB (CK-2) Troponin I NT-Pro-B Natriuret Pep Total Protein Albumin Urine Color YELLOW Urine Appearance SLIGHTLY-CLOUDY Urine pH 9.0 Ur Specific [place] 1.009 Urine Protein NEGATIVE Urine Glucose (UA) NEGATIVE Urine Ketones 20 H Urine Blood NEGATIVE Urine Nitrite NEGATIVE Urine Bilirubin NEGATIVE Urine Urobilinogen NEGATIVE Ur Leukocyte Esterase TRACE H Urine WBC (Auto) 2 Urine RBC (Auto) 1 Squamous Epi Cells Auto 4 Urine Mucus (Auto) RARE Urine Ascorbic Acid NEGATIVE Urine HCG, Qual NEGATIVE Urine Opiates Screen NEGATIVE Urine Methadone Screen NEGATIVE Ur Barbiturates Screen NEGATIVE Ur Phencyclidine Scrn NEGATIVE Ur Amphetamines Screen NEGATIVE U Benzodiazepines Scrn NEGATIVE Urine Cocaine Screen NEGATIVE U Marijuana (THC) Screen NEGATIVE Chest X-Ray 05/25/19 18:22 IMPRESSION: Cardiomegaly without acute abnormality of the lungs in AP proj ection. Patient has 05/25/19 20:48 Patient has cardiomegaly on chest x-ray but no evidence of failure based on BNP. Her BNP was well within normal limits. Review of prior x-rays reveal the same. Patient does not appear in any way to be in heart failure. She has a normal troponin. Normal labs. Patient has been seen on multiple occasions and has had a total of [address] in the last 5 years. Just had a recent CT scan and ultrasound which were negative. Her D-dimers are chronically elevated and should unlikely be the cause of concern. On lengthy evaluation of patient she describes significant anxiety. 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 Has persistent anxiety. Followed by a psychiatrist who has started her on some Celexa but thinks that it is making it worse. Of note, I did a venous blood gas which did prove that she was in a respiratory alkalosis consistent with my suspicion is that she was hyperventilating. I am going to start her on some clonazepam and I am also prescribing her some gabapentin. She is a reliable patient that can do trials on these medications to see if they work. I have advised that she should not take both of them but I would like for her to see if the gabapentin or the clonazepam changes the way that she feels during the day with regards to her anxiety symptoms. Patient is reliable. I feel comfortable doing this. She also realizes that she will need to discuss this with her primary care doctor or psychiatrist as I will only do a one-month prescription. At this time of comfortable discharging in stable condition. - Vital Signs Vital signs: Temp Pulse Resp BP Pulse Ox 97.8 F 74 18 130/68 H 100 05/25/19 18:26 05/25/19 18:26 05/25/19 20:01 05/25/19 20:01 05/25/19 20:01 - Laboratory Result Diagrams: 05/25/19 18:23 05/25/19 18:23 Laboratory results interpreted by me: 05/25/19 05/25/19 05/25/19 18:23 18:23 18:41 Hgb 11.6 L MCV 69 L MCH 22.1 L MCHC 31.9 L RDW 14.4 H VBG pH 7.48 H BUN 5 L Urine Ketones Ur Leukocyte Esterase 05/25/19 19:35 Hgb MCV MCH MCHC RDW VBG pH BUN Urine Ketones 20 H Ur Leukocyte Esterase TRACE H - EKG Interpretation by Me EKG shows normal: Sinus rhythm, Arthur, Intervals, QRS Complexes, ST-T Waves Discharge - Discharge Clinical Impression: Dyspnea and respiratory abnormalities, Respiratory alkalosis, Anxiety Condition: Good Disposition: HOME, SELF-CARE Instructions: Dyspnea, Nonspecific ([facility]), Anxiety ([facility]) Prescriptions: Clonazepam 0.5 mg PO QHS 30 Days #30 tablet Gabapentin [Neurontin 100 mg Capsule] 100 mg PO Q12 PRN 30 Days #60 capsule PRN Reason: Anxiety/Agitation
[2019-05-25 18:56] LABS: ABSOLUTE EOSINOPHILS # (AUTO) 0.2 10^3/uL (0.0-0.6); ABSOLUTE LYMPHOCYTES (AUTO) 1.7 10^3/uL (0.5-4.7); ABSOLUTE MONOCYTES (AUTO) 0.6 10^3/uL (0.1-1.4); ABSOLUTE NEUT (AUTO) 3.3 10^3/uL (1.7-8.2); BASOPHILS % (AUTO) 0.7 % (0-2); EOSINOPHILS % (AUTO) 3.3 % (0-6); HEMATOCRIT 36.3 % (36.0-47.0); HEMOGLOBIN 11.6 g/dL (12.0-15.5); LYMPHOCYTES % (AUTO) 28.9 % (13-45); MEAN CORPUSCULAR HEMOGLOBIN 22.1 pg (27.0-33.4); MEAN CORPUSCULAR HGB CONC 31.9 g/dL (32.0-36.0); MEAN CORPUSCULAR VOLUME 69 fl (80-97); MONOCYTES % (AUTO) 9.6 % (3-13); PLATELET COUNT 346 10^3/uL (150-450); RED BLOOD COUNT 5.25 10^6/uL (3.72-5.28); RED CELL DISTRIBUTION WIDTH 14.4 % (11.5-14.0); SEGMENTED NEUTROPHILS % (AUTO) 57.5 % (42-78); TOTAL CELLS COUNTED % (AUTO) 100 %; WHITE BLOOD COUNT 5.8 10^3/uL (4.0-10.5)
--- NOTE | 2019-05-25 18:57 | RADIOLOGY REPORT (SQ) ---
EXAM DESCRIPTION: CHEST SINGLE VIEW COMPLETED DATE/TIME: 05/25/2019 6:44 pm REASON FOR STUDY: sob COMPARISON: 05/02/2019 EXAM PARAMETERS: NUMBER OF VIEWS: One view. TECHNIQUE: Single frontal radiographic view of the chest acquired. RADIATION DOSE: NA LIMITATIONS: None. FINDINGS: LUNGS AND PLEURA: No opacities, masses or pneumothorax. No pleural effusion. MEDIASTINUM AND HILAR STRUCTURES: No masses. Contour normal. HEART AND VASCULAR STRUCTURES: Cardiomegaly. BONES: No acute findings. HARDWARE: None in the chest. OTHER: No other significant finding. IMPRESSION: Cardiomegaly without acute abnormality of the lungs in AP projection. TECHNICAL DOCUMENTATION: JOB ID: [id number] [employer]- All Rights Reserved Reading location - IP/workstation name: [email or web address]
[2019-05-25 19:10] LABS: VENOUS BLOOD BASE EXCESS 3.7 mmol/L; VENOUS BLOOD HCO3 27.2 mmol/L (20-32); VENOUS BLOOD PH 7.48 (7.30-7.42)
[2019-05-25 19:17] LABS: ALKALINE PHOSPHATASE 87 U/L (38-126); ANION GAP 10 (5-19); ASPARTATE AMINO TRANSFERASE 22 U/L (14-36); BILIRUBIN,DIRECT 0.2 mg/dL (0.0-0.4); BILIRUBIN,TOTAL 0.5 mg/dL (0.2-1.3); BLOOD UREA NITROGEN 5 mg/dL (7-20); CALCIUM 9.4 mg/dL (8.4-10.2); CARBON DIOXIDE 23 mmol/L (22-30); CHLORIDE 104 mmol/L (98-107); CREATINE KINASE 54 U/L (30-135); GLUCOSE 93 mg/dL (75-110); POTASSIUM 3.9 mmol/L (3.6-5.0); TOTAL PROTEIN 7.4 g/dL (6.3-8.2)
[2019-05-25 19:31] LABS: NT PRO BNP 40 pg/mL (<125)
[2019-05-25 19:33] LABS: CREATINE KINASE MB < 0.22 ng/mL (<4.55); TROPONIN I < 0.012 ng/mL
[2019-05-25 19:59] LABS: APPEARANCE,URINE SLIGHTLY-CLOUDY; BILIRUBIN,URINE NEGATIVE (NEGATIVE); COLOR,URINE YELLOW; GLUCOSE, URINE NEGATIVE (NEGATIVE); KETONES,URINE 20 mg/dL (NEGATIVE); LEUKOCYTE ESTERASE,URINE TRACE (NEGATIVE); NITRITE,URINE NEGATIVE (NEGATIVE); PROTEIN,URINE NEGATIVE (NEGATIVE); URINE SPECIFIC GRAVITY 1.009; UROBILINOGEN,URINE NEGATIVE mg/dL (<2.0)
[2019-05-25 20:12] LABS: URINE AMPHETAMINES SCREEN NEGATIVE; URINE BARBITURATES SCREEN NEGATIVE; URINE BENZODIAZEPINES SCREEN NEGATIVE; URINE COCAINE SCREEN NEGATIVE; URINE MARIJUANA (THC) SCREEN NEGATIVE; URINE METHADONE SCREEN NEGATIVE; URINE PHENCYCLIDINE SCREEN NEGATIVE
[2019-05-25] MEDS ORDERED: CLONAZEPAM 1 MG TABLET PO ONE (20:45)
[2019-05-25 21:28] VITALS: BP 150/107
--- NOTE | 2019-05-25 22:03 | EKG REPORT ---
SEVERITY:- ABNORMAL ECG - SINUS RHYTHM [address]-T CHANGES : Confirmed by: Rohan Herndon MD 25-May-2019 22:02:44
== END 2019-05-25 21:28 | disposition home or self-care (01) ==
LOC: ER 17:48
DX: F41.9 Anxiety disorder, unspecified (principal); J45.909 Unspecified asthma, uncomplicated; R06.02 Shortness of breath; E87.3 Alkalosis; R07.89 Other chest pain; I51.7 Cardiomegaly; R20.0 Anesthesia of skin; R20.2 Paresthesia of skin; Z88.0 Allergy status to penicillin; Z88.1 Allergy status to other antibiotic agents; Z88.8 Allergy status to other drugs, medicaments and biological substances; Z82.49 Family history of ischemic heart disease and other diseases of the circulatory system
CPT/HCPCS: 36415; 71045; 80053; 80307; 81001; 81025; 82550; 82553; 82803; 83880; 84484; 85025; 93005; 93010; 99285

== ENCOUNTER 2019-10-16 16:11 | Emergency (ER) | payer BC ==
[2019-10-16] MEDS ORDERED: NORMAL SALINE 500 ML IV ONE (16:35)
[2019-10-16] MEDS ORDERED: PROCHLORPERAZINE EDISYLATE INJ 10 MG/2 ML VIAL IV ONE (16:35)
[2019-10-16] MEDS ORDERED: DIPHENHYDRAMINE HCL 50 MG/ML VIAL IV ONE (16:35)
[2019-10-16] MEDS ORDERED: KETOROLAC TROMETHAMINE INJ/PF 30 MG/1 ML SDV IV ONE (16:35)
--- NOTE | 2019-10-16 16:35 | ER Document Report ---
ED Medical Screen (RME) - General Chief Complaint: Headache Stated Complaint: HEADACHE, NECK PAIN,LIGHTHEADED Time Seen by Provider: 10/16/19 16:29 TRAVEL OUTSIDE OF THE [place] IN LAST 30 DAYS: No - HPI Notes: 10/16/19 16:34 Patient is a 29-year-old female with a history of chronic recurrent headaches who presents complaining of having a headache for the past 2 weeks. She did see her family doctor a week ago for this issue and was placed on Flexeril which did not help. Patient states that most of her pain is around her neck area and around her scalp/head. Patient states that when the pain gets severe she feels 'whole body tingling' which she has experienced before 1 of the last times she is evaluated here for headaches. This is not the worst headache of her life and did not start as a thunderclap. No other recent illness. No fever. I have treated and performed a rapid initial assessment of this patient. A comprehensive ED assessment and evaluation of the patient, analysis of test resu lts and completion of medical decision making process will be conducted by additional ED providers. PHYSICAL EXAMINATION: GENERAL: Well-appearing, well-nourished and in no acute distress. A&Ox4. A nswers questions appropriately. Neuro: NIH 0, GCS 15, cranial nerves grossly intact - Related Data Allergies/Adverse Reactions: amoxicillin Allergy (Verified 05/02/19 15:58) clindamycin [Clindamycin] Allergy (Verified 05/02/19 15:58) metoclopramide [From Reglan] Allergy (Verified 05/02/19 15:58) Past Medical History - Past Medical History Cardiac Medical History: Denies: Hx Coronary Artery Disease, Hx Heart Attack, Hx Hypercholesterolemia, Hx Hypertension Pulmonary Medical History: Reports: Hx Asthma Denies: Hx Bronchitis, Hx COPD, Hx Pneumonia Neurological Medical History: Reports: Hx Migraine. Denies: Hx Cerebrovascular Accident, Hx Seizures Renal/ Medical History: Denies: Hx Peritoneal Dialysis GI Medical History: Reports: Hx Gastroesophageal Reflux Disease Musculoskeltal Medical History: Denies Hx Arthritis Skin Medical History: Reports Hx Eczema Past Surgical History: Reports: Hx Section - x2, Hx Cholecystectomy, Other - EGD 2 weeks ago, colonoscopy this morning - Immunizations Immunizations up to date: Yes Hx Diphtheria, Pertussis, Tetanus Vaccination: Yes - 2018 Physical Exam - Vital signs Vitals: Temp Pulse Resp BP Pulse Ox 98.1 F 92 17 127/72 H 99 10/16/19 16:18 10/16/19 16:18 10/16/19 16:18 10/16/19 16:18 10/16/19 16:18 Course - Vital Signs Vital signs: Temp Pulse Resp BP Pulse Ox 98.1 F 92 17 127/72 H 99 10/16/19 16:18 10/16/19 16:18 10/16/19 16:18 10/16/19 16:18 10/16/19 16:18
--- NOTE | 2019-10-16 17:15 | ER Document Report ---
ED General - General Chief Complaint: Headache Stated Complaint: HEADACHE, NECK PAIN,LIGHTHEADED Time Seen by Provider: 10/16/19 16:29 Primary Care Provider: JASMIN GRACIA MD [Primary Care Provider] - Follow up in 1 week Mode of Arrival: Ambulatory Information source: Patient Notes: 29-year-old female presents emergency department with complaints of headache that starts in her neck wraps around to her forehead for the past few weeks. She reports the pain started after she had a very stressful event in her life. She reports it was a bad break-up. She did go see her provider who treated her with Flexeril. She also received a massage and reported it helped at that time but the headache came back. She describes the headache as pressure. She reports she has a history of anxiety. She reports at times she feels like her speech is slurred and she feels like she is in a fog. She denies fever vomiting diarrhea. Denies trauma. Reports she feels like her legs are weak at times. TRAVEL OUTSIDE OF THE [place] IN LAST 30 DAYS: No - HPI Onset: Other - Over 2 weeks Onset/Duration: Persistent Quality of pain: Pressure Associated symptoms: None Exacerbated by: Denies Relieved by: Denies Similar symptoms previously: Yes Recently seen / treated by doctor: Yes - Related Data Allergies/Adverse Reactions: amoxicillin Allergy (Verified 05/02/19 15:58) clindamycin [Clindamycin] Allergy (Verified 05/02/19 15:58) metoclopramide [From Reglan] Allergy (Verified 05/02/19 15:58) Home Medications: Protonix, pro air Past Medical History - General Information source: Patient Last Menstrual Period: 3 weeks ago denies - Social History Smoking Status: Never Smoker Frequency of alcohol use: Rare Drug Abuse: None Occupation: [employer] at [employer] Family History: Reviewed & Not Pertinent, CAD - Mother, Hypertension - Hypertension Patient has suicidal ideation: No Patient has homicidal ideation: No - Past Medical History Cardiac Medical History: Denies: Hx Coronary Artery Disease, Hx Heart Attack, Hx Hypercholesterolemia, Hx Hypertension Pulmonary Medical History: Reports: Hx Asthma Denies: Hx Bronchitis, Hx COPD, Hx Pneumonia Neurological Medical History: Reports: Hx Migraine. Denies: Hx Cerebrovascular Accident, Hx Seizures Renal/ Medical History: Denies: Hx Peritoneal Dialysis GI Medical History: Reports: Hx Gastroesophageal Reflux Disease Musculoskeletal Medical History: Denies Hx Arthritis Skin Medical History: Reports Hx Eczema Past Surgical History: Reports: Hx Section - x2, Hx Cholecystectomy, Other - EGD 2 weeks ago, colonoscopy this morning - Immunizations Immunizations up to date: Yes Hx Diphtheria, Pertussis, Tetanus Vaccination: Yes - 2017 Review of Systems - Review of Systems Notes: Review HPI for review of systems., All other systems negative Physical Exam - Vital signs Vitals: Temp Pulse Resp BP Pulse Ox 98.1 F 92 17 127/72 H 99 10/16/19 16:18 10/16/19 16:18 10/16/19 16:18 10/16/19 16:18 10/16/19 16:18 - General General appearance: Appears well, Alert - Patient looks great nontoxic looking smiles and laughs easily In distress: None - HEENT Head: Normocephalic Eyes: Normal Conjunctiva: Normal Extraocular movements intact: Yes Eyelashes: Normal Pupils: PERRL External canal: Normal Tympanic membrane: Normal Mouth/Lips: Normal Mucous membranes: Moist Pharynx: Normal. No: Erythema, Peritonsillar abscess Neck: Normal, Supple. No: Lymphadenopathy - Respiratory Respiratory status: No respiratory distress Chest status: Nontender Breath sounds: Normal Chest palpation: Normal - Cardiovascular Rhythm: Regular Heart sounds: Normal auscultation Murmur: No - Abdominal Inspection: Normal Distension: No distension - Extremities General upper extremity: Normal ROM, Normal strength General lower extremity: Normal ROM, Normal strength, Normal weight bearing - Neurological Neuro grossly intact: Yes Cognition: Normal Orientation: AAOx4 Liana Coma Scale Eye Opening: Spontaneous [place]iana Coma Scale Verbal: Oriented [place] Coma Scale Motor: Obeys Commands Liana Coma Scale Total: 15 Speech: Normal Cranial nerves: Normal Cerebellar coordination: Normal Motor strength normal: LUE, RUE, LLE, RLE Additional motor exam normals: Equal side laster tack Sensory: Normal - Psychological Associated symptoms: Normal affect, Normal mood - Skin Skin Temperature: Warm Skin Moisture: Dry Skin Color: Normal Course - Re-evaluation Re-evalutation: 10/16/19 17:35 Patient presents emergency department with complaints of headache neck pain for the past few weeks. Reports it started after she had a bad break-up stressful event. Denies trauma. Denies fever vomiting diarrhea. Patient looks wonderful. Laughing happy no distress. No neuro deficits noted. 10/16/19 18:03 Patient reports immediate relief after she obtained the medications - Vital Signs Vital signs: Temp Pulse Resp BP Pulse Ox 98.0 F 91 17 134/87 H 100 10/16/19 18:52 10/16/19 18:52 10/16/19 16:18 10/16/19 18:52 10/16/19 18:52 Discharge - Discharge Clinical Impression: Headache Qualifiers: Headache type: tension-type Headache chronicity pattern: unspecified pattern Intractability: not intractable Qualified Code(s): G44.209 - Tension-type headache, unspecified, not intractable Condition: Stable Disposition: HOME, SELF-CARE Instructions: Intravenous Compazine for Headaches ([facility]), Use of Diphenhydramine, Headache ([facility]), Intravenous (IV) Fluids ([facility]), Toradol Inje ction ([facility]) Additional Instructions: *You have been evaluated for a headache *Rest, push fluids, take ibuprofen or tylenol as indicated *Follow up with Dr. Gracia as scheduled *Return to ED for worsening condition, changes, needs, concerns Forms: Elevated Blood Pressure, Return to Work Referrals: JASMIN GRACIA MD [Primary Care Provider] - Follow up in 1 week
[2019-10-16 18:56] VITALS: BP 134/87
== END 2019-10-16 19:00 | disposition home or self-care (01) ==
LOC: ER 16:11
DX: G44.209 Tension-type headache, unspecified, not intractable (principal); M54.2 Cervicalgia; J45.909 Unspecified asthma, uncomplicated; K21.9 Gastro-esophageal reflux disease without esophagitis; Z79.899 Other long term (current) drug therapy; Z88.1 Allergy status to other antibiotic agents; Z88.8 Allergy status to other drugs, medicaments and biological substances; Z88.0 Allergy status to penicillin
CPT/HCPCS: 99283; 96361; 96374; 96375; J1200; J1885; J0780; J7040

== ENCOUNTER 2019-10-26 09:11 | Emergency (ER) | payer BC ==
--- NOTE | 2019-10-26 09:53 | ER Document Report ---
ED Medical Screen (RME) - General Chief Complaint: General Weakness Stated Complaint: GENERAL WEAKNESS Time Seen by Provider: 10/26/19 09:43 Primary Care Provider: JASMIN GRACIA MD [Primary Care Provider] - Follow up as needed Mode of Arrival: Wheelchair Information source: Patient Notes: 29-year-old female presents emergency department with complaints of body weakness numbness tingling for past 3 weeks. She was evaluated here a couple weeks ago and treated for what was believed to be a tension headache. Patient complains she continues to have headache. Reports it hurts just to lift her head up off the pillow. She reports she is having a hard time walking. She did see Dr. Gracia who is ordered some outpatient labs. Denies trauma. Patient is very tearful. I have greeted and performed a rapid initial assessment of this patient. A comprehensive ED assessment and evaluation of the patient, analysis of test results and completion of the medical decision making process will be conducted by additional ED providers. TRAVEL OUTSIDE OF THE [place] IN LAST 30 DAYS: No - Related Data Allergies/Adverse Reactions: amoxicillin Allergy (Verified 05/02/19 15:58) clindamycin [Clindamycin] Allergy (Verified 05/02/19 15:58) metoclopramide [From Reglan] Allergy (Verified 05/02/19 15:58) Past Medical History - Social History Chew tobacco use (# tins/day): No Frequency of alcohol use: None Drug Abuse: None - Past Medical History Cardiac Medical History: Denies: Hx Coronary Artery Disease, Hx Heart Attack, Hx Hypercholesterolemia, Hx Hypertension Pulmonary Medical History: Reports: Hx Asthma Denies: Hx Bronchitis, Hx COPD, Hx Pneumonia Neurological Medical History: Reports: Hx Migraine. Denies: Hx Cerebrovascular Accident, Hx Seizures Renal/ Medical History: Denies: Hx Peritoneal Dialysis GI Medical History: Reports: Hx Gastroesophageal Reflux Disease Musculoskeltal Medical History: Denies Hx Arthritis Skin Medical History: Reports Hx Eczema Past Surgical History: Reports: Hx Section - x2, Hx Cholecystectomy, Other - EGD 2 weeks ago, colonoscopy this morning - Immunizations Immunizations up to date: Yes Hx Diphtheria, Pertussis, Tetanus Vaccination: Yes - 2018 Physical Exam - Vital signs Vitals: Temp Pulse Resp BP Pulse Ox 98.6 F 93 16 140/86 H 100 10/26/19 09:27 10/26/19 09:27 10/26/19 09:27 10/26/19 09:27 10/26/19 09:27 Course - Vital Signs Vital signs: Temp Pulse Resp BP Pulse Ox 98.6 F 93 16 140/86 H 100 10/26/19 09:27 10/26/19 09:27 10/26/19 09:27 10/26/19 09:27 10/26/19 09:27 Doctor's Discharge - Discharge Referrals: JASMIN GRACIA MD [Primary Care Provider] - Follow up as needed
[2019-10-26 10:28] LABS: APPEARANCE,URINE CLEAR; BILIRUBIN,URINE NEGATIVE (NEGATIVE); COLOR,URINE YELLOW; GLUCOSE, URINE NEGATIVE (NEGATIVE); KETONES,URINE NEGATIVE (NEGATIVE); LEUKOCYTE ESTERASE,URINE NEGATIVE (NEGATIVE); NITRITE,URINE NEGATIVE (NEGATIVE); PROTEIN,URINE NEGATIVE (NEGATIVE); URINE SPECIFIC GRAVITY 1.011; UROBILINOGEN,URINE NEGATIVE mg/dL (<2.0)
[2019-10-26 10:29] LABS: ABSOLUTE EOSINOPHILS # (AUTO) 0.1 10^3/uL (0.0-0.6); ABSOLUTE LYMPHOCYTES (AUTO) 1.3 10^3/uL (0.5-4.7); ABSOLUTE MONOCYTES (AUTO) 0.5 10^3/uL (0.1-1.4); ABSOLUTE NEUT (AUTO) 4.8 10^3/uL (1.7-8.2); BASOPHILS % (AUTO) 0.4 % (0-2); EOSINOPHILS % (AUTO) 1.6 % (0-6); HEMOGLOBIN 11.5 g/dL (12.0-15.5); LYMPHOCYTES % (AUTO) 18.9 % (13-45); MEAN CORPUSCULAR HEMOGLOBIN 22.3 pg (27.0-33.4); MEAN CORPUSCULAR HGB CONC 31.8 g/dL (32.0-36.0); MEAN CORPUSCULAR VOLUME 70 fl (80-97); MONOCYTES % (AUTO) 7.8 % (3-13); PLATELET COUNT 359 10^3/uL (150-450); RED BLOOD COUNT 5.13 10^6/uL (3.72-5.28); RED CELL DISTRIBUTION WIDTH 14.6 % (11.5-14.0); SEGMENTED NEUTROPHILS % (AUTO) 71.3 % (42-78); TOTAL CELLS COUNTED % (AUTO) 100 %; WHITE BLOOD COUNT 6.7 10^3/uL (4.0-10.5)
[2019-10-26 10:42] LABS: ALBUMIN 3.7 g/dL (3.5-5.0); ALKALINE PHOSPHATASE 67 U/L (38-126); ANION GAP 5 (5-19); ASPARTATE AMINO TRANSFERASE 16 U/L (14-36); BILIRUBIN,DIRECT 0.1 mg/dL (0.0-0.4); BILIRUBIN,TOTAL 0.3 mg/dL (0.2-1.3); BLOOD UREA NITROGEN 5 mg/dL (7-20); CALCIUM 9.4 mg/dL (8.4-10.2); CARBON DIOXIDE 30 mmol/L (22-30); CHLORIDE 106 mmol/L (98-107); GLUCOSE 88 mg/dL (75-110); POTASSIUM 3.7 mmol/L (3.6-5.0)
[2019-10-26 10:43] LABS: C-REACTIVE PROTEIN < 5.0 mg/L (<10.0)
[2019-10-26 11:11] LABS: ERYTHROCYTE SEDIMENTATION RATE 34 mm/hr (0-20)
--- NOTE | 2019-10-26 12:24 | ER Document Report ---
ED General - General Chief Complaint: General Weakness Stated Complaint: GENERAL WEAKNESS Time Seen by Provider: 10/26/19 09:43 Primary Care Provider: JASMIN GRACIA MD [Primary Care Provider] - Follow up as needed Mode of Arrival: Wheelchair TRAVEL OUTSIDE OF THE [place] IN LAST 30 DAYS: No - HPI Notes: Patient is a 29-year-old female who presents to the emergency department for evaluation. She is a difficult historian. She states that she is had increased weakness over the last several weeks. On further questioning, the patient states that she feels like her "head is empty" and that when she touches the nerve in the back of her head it causes sensations throughout her entire body. She states she feels "numb all over" intermittently. Patient further goes on to say that she was told by a physician in August 2018 that she has multiple food sensitivities. She has been on a very restrictive diet since then. She states that this might be contributing as well. She states she really does not eat anymore. She is lost over 140 pounds. She is currently following up with her primary care provider in regards to some of these issues, but she became more acutely concerned today, so she presents to the ED for further evaluation. - Related Data Allergies/Adverse Reactions: amoxicillin Allergy (Verified 05/02/19 15:58) clindamycin [Clindamycin] Allergy (Verified 05/02/19 15:58) metoclopramide [From Reglan] Allergy (Verified 05/02/19 15:58) Past Medical History - General Information source: Patient - Social History Smoking Status: Never Smoker Chew tobacco use (# tins/day): No Frequency of alcohol use: None Drug Abuse: None Family History: Reviewed & Not Pertinent, CAD - Mother, Hypertension - Hypertension Patient has suicidal ideation: No Patient has homicidal ideation: No - Past Medical History Cardiac Medical History: Denies: Hx Coronary Artery Disease, Hx Heart Attack, Hx Hypercholesterolemia, Hx Hypertension Pulmonary Medical History: Reports: Hx Asthma Denies: Hx Bronchitis, Hx COPD, Hx Pneumonia Neurological Medical History: Reports: Hx Migraine. Denies: Hx Cerebrovascular Accident, Hx Seizures Renal/ Medical History: Denies: Hx Peritoneal Dialysis GI Medical History: Reports: Hx Gastroesophageal Reflux Disease Musculoskeletal Medical History: Denies Hx Arthritis Skin Medical History: Reports Hx Eczema Past Surgical History: Reports: Hx Section - x2, Hx Cholecystectomy, Other - EGD 2 weeks ago, colonoscopy this morning - Immunizations Immunizations up to date: Yes Hx Diphtheria, Pertussis, Tetanus Vaccination: Yes - 2018 Review of Systems - Review of Systems Constitutional: See HPI EENT: No symptoms reported Cardiovascular: No symptoms reported Respiratory: No symptoms reported Gastrointestinal: No symptoms reported Genitourinary: No symptoms reported Musculoskeletal: No symptoms reported Skin: No symptoms reported Neurological/Psychological: See HPI Physical Exam - Vital signs Vitals: Temp Pulse Resp BP Pulse Ox 98.6 F 93 16 140/86 H 100 10/26/19 09:27 10/26/19 09:27 10/26/19 09:27 10/26/19 09:10/26/19 09:27 - Notes Notes: This is a pleasant 29-year-old female who is mildly anxious in appearance, but appears her stated age and is in no acute distress. Vital signs reviewed, please refer to chart. Head is normocephalic, atraumatic. Pupils equal round, reactive to light. Neck is supple without meningismus. Heart is regular rate and rhythm. Lungs are clear to auscultation bilaterally. Abdomen is soft, nontender, normoactive bowel sounds throughout. Extremities without cyanosis, clubbing. Posterior calves are nontender. Peripheral pulses are equal. Skin is warm and dry. Patient is awake, alert, oriented x3. Cranial nerves II - XII are grossly intact without focal neurological deficits. Strength is plus 5 out of 5 bilateral upper and lower extremities. Sensation is intact. Reflexes symmetrical. Intact ffgqst-zrtf-oytoup, rapid alternating movements, [id number]-[id number]. Course - Re-evaluation Re-evalutation: 10/26/19 12:27 Patient presents to the emergency department for evaluation. She has a variety of very vague and nonspecific symptoms. Laboratory investigations were obtained and found to be unremarkable. I do suspect that she has some anxieties based on these potential food sensitivities. I do not have any acute reason for any of her symptoms today, and she does not have any focal neurological deficits. She is encouraged to follow-up with primary care, return to the ED with worsening or new concerning symptoms of any sort. - Vital Signs Vital signs: Temp Pulse Resp BP Pulse Ox 98.6 F 93 16 140/86 H 100 10/26/19 09:27 10/26/19 09:27 10/26/19 09:27 10/26/19 09:27 10/26/19 09:27 - Laboratory Result Diagrams: 10/26/19 10:06 10/26/19 10:06 Laboratory results interpreted by me: 10/26/19 10/26/19 10:06 10:06 Hgb 11.5 L MCV 70 L MCH 22.3 L MCHC 31.8 L RDW 14.6 H ESR 34 H BUN 5 L Discharge - Discharge Clinical Impression: Weakness Condition: Stable Disposition: HOME, SELF-CARE Instructions: Weakness ([facility]) Additional Instructions: No clear cause was found for your weakness here today. Please consider introducing other foods into your diet as discussed. Follow-up closely with your primary care provider. Return the emergency department with worsening or new concerning symptoms of any sort. Referrals: JASMIN GRACIA MD [Primary Care Provider] - Follow up as needed
[2019-10-26 12:45] VITALS: BP 144/85
== END 2019-10-26 12:55 | disposition home or self-care (01) ==
LOC: ER 09:11
DX: R53.1 Weakness (principal); R20.2 Paresthesia of skin; Z88.0 Allergy status to penicillin; Z88.3 Allergy status to other anti-infective agents; Z90.49 Acquired absence of other specified parts of digestive tract
CPT/HCPCS: 36415; 80053; 81001; 81025; 84443; 85025; 85652; 86140; 86308; 99284

== ENCOUNTER 2019-10-31 03:54 | Emergency (ER) | payer BC ==
[2019-10-31] MEDS ORDERED: LORATADINE 10 MG TABLET PO ONE (04:17)
[2019-10-31] MEDS ORDERED: GUAIFENESIN 600 MG TABLET.SA PO ONE (04:17)
--- NOTE | 2019-10-31 04:20 | ER Document Report ---
ED General - General Chief Complaint: Weakness Stated Complaint: WEAKNESS Time Seen by Provider: 10/31/19 04:02 Primary Care Provider: JASMIN GRACIA MD [Primary Care Provider] - Follow up as needed Mode of Arrival: Medic Information source: Patient Notes: 29-year-old female presented to ED for complaint of cold sensation to the back of her head going down her neck and then she was very weak and had to call her daughter to come in and help her to call 911. She and her daughter did come via the EMS for the sensation. Patient has no neurological deficits at this time. She is alert oriented speaking in full sentences has no facial droop no palmar drift has equal strength in left and right arm and left and right leg. She has equal raw juice weigher. She was seen 2 days ago for a similar incident. She states she has been feeling these sensations off and on for a while. She states she has lost quite a bit of weight over the last year and a half due to multiple food allergies and sensitivities. Patient denies smoking drinking or using any alcohol. She lives alone with her daughter. 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 TRAVEL OUTSIDE OF THE [place] IN LAST 30 DAYS: No - HPI Onset: Other - She states she has been having these sensations intermittent Onset/Duration: Intermittent Quality of pain: Achy Severity: Severe Pain Level: 5 Associated symptoms: Body/muscle aches, Headache, Rhinnorhea, Sinus pain/drainage, Weakness. denies: Fever Exacerbated by: Denies Relieved by: Denies Similar symptoms previously: Yes Recently seen / treated by doctor: Yes - Related Data Allergies/Adverse Reactions: amoxicillin Allergy (Verified 05/02/19 15:58) clindamycin [Clindamycin] Allergy (Verified 05/02/19 15:58) metoclopramide [From Reglan] Allergy (Verified 05/02/19 15:58) Past Medical History - General Information source: Patient - Social History Smoking Status: Never Smoker Cigarette use (# per day): No Chew tobacco use (# tins/day): No Smoking Education Provided: No Frequency of alcohol use: None Drug Abuse: None Lives with: Alone - with daughter Family History: Reviewed & Not Pertinent, CAD - Mother, Hypertension - Hypertension Patient has suicidal ideation: No Patient has homicidal ideation: No - Past Medical History Cardiac Medical History: Reports: None Pulmonary Medical History: Reports: Hx Asthma EENT Medical History: Reports: None Neurological Medical History: Reports: Hx Migraine Endocrine Medical History: Reports: None Renal/ Medical History: Reports: None Malignancy Medical History: Reports: None GI Medical History: Reports: Hx Gastroesophageal Reflux Disease, Hx Colonoscopy, Hx Endoscopy Musculoskeletal Medical History: Reports None Skin Medical History: Reports Hx Eczema Psychiatric Medical History: Reports: None Traumatic Medical History: Reports: None Infectious Medical History: Reports: None Past Surgical History: Reports: Hx Section - x2, Hx Cholecystectomy - Immunizations Immunizations up to date: Yes Hx Diphtheria, Pertussis, Tetanus Vaccination: Yes - 2017 Review of Systems - Review of Systems Constitutional: No symptoms reported EENT: Nose congestion, Nose discharge, Sinus discharge Cardiovascular: No symptoms reported Respiratory: No symptoms reported Gastrointestinal: No symptoms reported Genitourinary: No symptoms reported Female Genitourinary: No symptoms reported Musculoskeletal: Other - muscle weakness Skin: No symptoms reported Hematologic/Lymphatic: No symptoms reported Neurological/Psychological: See HPI -: Yes All other systems reviewed and negative Physical Exam - Vital signs Vitals: Temp Pulse Resp BP Pulse Ox 97.5 F 85 18 128/82 H 100 10/31/19 04:16 10/31/19 04:16 10/31/19 04:16 10/31/19 04:16 10/31/19 04:16 Interpretation: Normal - General General appearance: Appears well, Alert - HEENT Head: Normocephalic, Atraumatic Eyes: Normal Pupils: PERRL Visual masters normal: Yes Ears: Normal External canal: Normal Tympanic membrane: Normal Sinus: Normal Nasal: Purulent discharge, Swelling Mouth/Lips: Normal Mucous membranes: Normal Pharynx: Post nasal drainage Neck: Normal - Respiratory Respiratory status: No respiratory distress Chest status: Nontender Breath sounds: Normal Chest palpation: Normal - Cardiovascular Rhythm: Regular Heart sounds: Normal auscultation Murmur: No - Abdominal Inspection: Normal Distension: No distension Bowel sounds: Normal Tenderness: Nontender Organomegaly: No organomegaly - Back Back: Normal, Nontender - Extremities General upper extremity: Normal inspection, Nontender, Normal color, Normal ROM, Normal temperature General lower extremity: Normal inspection, Nontender, Normal color, Normal ROM, Normal temperature, Normal weight bearing. No: Yuko's sign - Neurological Neuro grossly intact: Yes Cognition: Normal Orientation: AAOx4 Liana Coma Scale Eye Opening: Spontaneous [place] Coma Scale Verbal: Oriented [place] Coma Scale Motor: Obeys Commands [place] Coma Scale Total: 15 Speech: Normal Cranial nerves: Normal Cerebellar coordination: Normal Motor strength normal: LUE, RUE, LLE, RLE Additional motor exam normals: Equal reversing mill roller Babinski reflex: Normal (flexor plantar) Sensory: Normal Biceps - Reflex grade: 2 = Normal Triceps - Reflex grade: 2 = Normal Brachioradialis - Reflex grade: 2 = Normal Knee - Reflex grade: 2 = Normal Ankle - Reflex grade: 2 = Normal - Psychological Associated symptoms: Normal affect, Normal mood - Skin Skin Temperature: Warm Skin Moisture: Dry Skin Color: Normal Course - Re-evaluation Re-evalutation: 10/31/19 04:31 The symptoms patient is describing very vague and nonspecific. She stated she did not want to repeat the labs today because she just had them several days ago and the symptoms are the same and she has had the same symptoms off and on since she was here last time. She stated she did want a CAT scan of the head and when I explained to her the risk versus benefits she decided she did not want to pay for CAT scan if she did not really need 1. She states she did not want to pay like having complications later if she did not really need one also. I did encourage her to follow-up with her primary care doctor and have them further evaluate these incidents she is having and get a referral to a neurologist if she continues to have these symptoms. Patient verbalized understanding and agreement with this treatment plan. - Vital Signs Vital signs: Temp Pulse Resp BP Pulse Ox 97.5 F 85 18 128/82 H 100 10/31/19 04:16 10/31/19 04:16 10/31/19 04:16 10/31/19 04:16 10/31/19 04:16 Discharge - Discharge Clinical Impression: Weakness URI (upper respiratory infection) Qualifiers: URI type: unspecified viral URI Qualified Code(s): J06.9 - Acute upper respiratory infection, unspecified Condition: Stable Disposition: HOME, SELF-CARE Additional Instructions: I do not see any reason for your feeling weak at home tonight. You have equal strength to both arms at this time you have no neurological deficits at this time. I have discussed with you the risk and benefits of a CT of the head and you have elected not to do the CT at this time. You do have signs and symptoms of an upper respiratory infection and I will treat you with Claritin and Mucinex at this time. You have been recommended treatment with Claritin 10 mg Sudafed 30 mg and Mucinex 600 mg. These are all vnkw-uiw-nddhtia medications for cough cold congestion. You do need to call the go to the pharmacist to get the Sudafed from behind the counter please get a little red pills they are more effective. You could also use Flonase which is afcf-eiq-grqwsju 1 spray each nostril twice a day. You could also use salt soda solution gargles. These will help to karl ve the drainage from the back your throat. Chloraseptic spray was leaf-ncu-rgoxfok that will also help with your sore throat. Salt and soda solution gargle 1 quart of water 1 tablespoon of salt 1 teaspoon of baking soda Mixed 3 ingredients together and boil for 1 minute Placed in a covered quart jar Use 1/2 ounce of cold solution to gargle 3 times a day You need to follow-up with your primary care doctor to have further testing if you continue to have these headache and weak spells. FOLLOW-UP CARE: If you have been referred to a physician for follow-up care, call the physician s office for an appointment as you were instructed or within the next two days. If you experience worsening or a significant change in your symptoms, notify the physician immediately or return to the Emergency Department at any time for re-evaluation. Forms: Elevated Blood Pressure, Return to Work Referrals: JASMIN GRACIA MD [Primary Care Provider] - Follow up as needed
[2019-10-31 04:21] VITALS: BP 128/82
[2019-10-31] MEDS ORDERED: IBUPROFEN 800 MG TABLET PO ONE (04:27)
== END 2019-10-31 04:34 | disposition home or self-care (01) ==
LOC: ER 03:54
DX: J06.9 Acute upper respiratory infection, unspecified (principal); R53.1 Weakness; M54.2 Cervicalgia; M79.10 Myalgia, unspecified site; R51 Headache; J34.89 Other specified disorders of nose and nasal sinuses; J45.909 Unspecified asthma, uncomplicated; R09.81 Nasal congestion; R09.89 Other specified symptoms and signs involving the circulatory and respiratory systems
CPT/HCPCS: 99283

== ENCOUNTER → 2019-12-10 | Outpatient (CLI) | payer BC ==
--- NOTE | 2019-12-10 17:10 | RADIOLOGY REPORT (SQ) ---
EXAM DESCRIPTION: CHEST PA/LATERAL COMPLETED DATE/TIME: 12/10/2019 5:03 pm REASON FOR STUDY: ACUTE BRONCHITIS COMPARISON: 05/25/2019. EXAM PARAMETERS: NUMBER OF VIEWS: two views TECHNIQUE: Digital Frontal and Lateral radiographic views of the chest acquired. RADIATION DOSE: NA LIMITATIONS: none FINDINGS: LUNGS AND PLEURA: No opacities, masses or pneumothorax. No pleural effusion. MEDIASTINUM AND HILAR STRUCTURES: No masses or contour abnormalities. HEART AND VASCULAR STRUCTURES: Heart normal size. No evidence for failure. BONES: No acute findings. HARDWARE: None in the chest. OTHER: No other significant finding. IMPRESSION: NO SIGNIFICANT RADIOGRAPHIC FINDING IN THE CHEST. TECHNICAL DOCUMENTATION: JOB ID: [id number] 2010 [employer]- All Rights Reserved Reading location - IP/workstation name: [email or web address]
[2019-12-10 17:21] LABS: ABSOLUTE BASOPHILS # (AUTO) 0.1 10^3/uL (0.0-0.2); ABSOLUTE EOSINOPHILS # (AUTO) 0.3 10^3/uL (0.0-0.6); ABSOLUTE MONOCYTES (AUTO) 0.6 10^3/uL (0.1-1.4); BASOPHILS % (AUTO) 0.8 % (0-2); EOSINOPHILS % (AUTO) 4.1 % (0-6); HEMATOCRIT 35.2 % (36.0-47.0); HEMOGLOBIN 11.5 g/dL (12.0-15.5); LYMPHOCYTES % (AUTO) 28.6 % (13-45); MEAN CORPUSCULAR HGB CONC 32.8 g/dL (32.0-36.0); MEAN CORPUSCULAR VOLUME 70 fl (80-97); MONOCYTES % (AUTO) 8.2 % (3-13); PLATELET COUNT 343 10^3/uL (150-450); RED BLOOD COUNT 5.02 10^6/uL (3.72-5.28); RED CELL DISTRIBUTION WIDTH 14.5 % (11.5-14.0); SEGMENTED NEUTROPHILS % (AUTO) 58.3 % (42-78); TOTAL CELLS COUNTED % (AUTO) 100 %; WHITE BLOOD COUNT 6.9 10^3/uL (4.0-10.5)
== END ==
LOC: OD 16:12
PROVIDERS: ATTEND Internal Medicine Pulmonary Disease
DX: J20.9 Acute bronchitis, unspecified (principal)
CPT/HCPCS: 36415; 71046; 85025

== ENCOUNTER 2019-12-14 10:49 | Emergency (ER) | payer BC ==
[2019-12-14] MEDS ORDERED: DIPHENHYDRAMINE HCL 50 MG/ML VIAL IV ONE (11:10)
[2019-12-14] MEDS ORDERED: KETOROLAC TROMETHAMINE INJ/PF 30 MG/1 ML SDV IV ONE (11:10)
[2019-12-14] MEDS ORDERED: PROCHLORPERAZINE EDISYLATE INJ 10 MG/2 ML VIAL IV ONE (11:10)
--- NOTE | 2019-12-14 11:13 | ER Document Report ---
ED Medical Screen (RME) - General Chief Complaint: Headache Stated Complaint: HEAD PAIN,RIGHT FACIAL NUMBNESS Time Seen by Provider: 12/14/19 11:05 Primary Care Provider: JASMIN GRACIA MD [Primary Care Provider] - Follow up as needed Notes: Patient is a 29-year-old female who presents emergency department with a chief complaint of migraine headache. Patient reports having history of migraines but that this was years ago. Patient reports over the past few months she is developed more headaches. Patient reports over the past few days she has had a right-sided headache. She reports it feels like there is an ice pick stabbing into the top of her head. Patient reports earlier she had some numbness and tingling to the right side of the face that has now since subsided. Patient reports nausea without vomiting. Patient denies injury. Patient also states having sinus pressure, increased postnasal drip and wheezing. Patient reports she does have asthma and has been taking her albuterol nebulizers more frequently. Denies fever. TRAVEL OUTSIDE OF THE [place] IN LAST 30 DAYS: No - Related Data Allergies/Adverse Reactions: amoxicillin Allergy (Verified 12/14/19 11:01) clindamycin [Clindamycin] Allergy (Verified 12/14/19 11:01) metoclopramide [From Reglan] Allergy (Verified 12/14/19 11:01) Home Medications: protonix. symbicort. spiriva. pro-air Past Medical History - Social History Chew tobacco use (# tins/day): No Frequency of alcohol use: None Drug Abuse: None - Past Medical History Cardiac Medical History: Denies: Hx Coronary Artery Disease, Hx Heart Attack, Hx Hypercholesterolemia, Hx Hypertension Pulmonary Medical History: Reports: Hx Asthma Denies: Hx Bronchitis, Hx COPD, Hx Pneumonia Neurological Medical History: Reports: Hx Migraine. Denies: Hx Cerebrovascular Accident, Hx Seizures Renal/ Medical History: Denies: Hx Peritoneal Dialysis GI Medical History: Reports: Hx Gastroesophageal Reflux Disease, Hx Colonoscopy, Hx Endoscopy Musculoskeltal Medical History: Denies Hx Arthritis Skin Medical History: Reports Hx Eczema Past Surgical History: Reports: Hx Section - x2, Hx Cholecystectomy, Other - EGD 2 weeks ago, colonoscopy this morning - Immunizations Immunizations up to date: Yes Hx Diphtheria, Pertussis, Tetanus Vaccination: Yes - 2017 Physical Exam - Vital signs Vitals: Temp Pulse Resp BP Pulse Ox 98.2 F 98 16 136/56 H 98 12/14/19 10:58 12/14/19 10:58 12/14/19 10:58 12/14/19 10:58 12/14/19 10:58 - HEENT Head: Normocephalic Pupils: PERRL Course - Re-evaluation Re-evalutation: 12/14/19 11:13 Patient has frontal and maxillary sinus tenderness noted. We will treat the patient for a migraine headache. I have greeted and performed a rapid initial assessment of this patient. A comprehensive ED assessment and evaluation of the patient, analysis of test results and completion of the medical decision making process will be conducted by additional ED providers. - Vital Signs Vital signs: Temp Pulse Resp BP Pulse Ox 98.2 F 98 16 136/56 H 98 12/14/19 10:58 12/14/19 10:58 12/14/19 10:58 12/14/19 10:58 12/14/19 10:58 Doctor's Discharge - Discharge Referrals: JASMIN GRACIA MD [Primary Care Provider] - Follow up as needed
[2019-12-14] MEDS ORDERED: NORMAL SALINE 1000 ML 1,000 ML IV ONE ×2 (11:15→13:45)
--- NOTE | 2019-12-14 11:49 | ER Document Report ---
ED General - General Chief Complaint: Headache Stated Complaint: HEAD PAIN,RIGHT FACIAL NUMBNESS Time Seen by Provider: 12/14/19 11:05 Primary Care Provider: JASMIN GRACIA MD [Primary Care Provider] - Follow up in 3-5 days Notes: 29 y/o female with history of migraine [place] presents with right sided headache for past 3 days. Pt states she also had some numbness to her face which has since resolved. Pt has associated nausea. Pt denies vomiting or weakness. Pt states she has had intermittent body weakness for past several months and has been seen in this ER multiple times and seen by her PCP and 2 different neurologists with negative workups. Pt denies fever. TRAVEL OUTSIDE OF THE [place] IN LAST 30 DAYS: No - Related Data Allergies/Adverse Reactions: amoxicillin Allergy (Verified 12/14/19 11:01) clindamycin [Clindamycin] Allergy (Verified 12/14/19 11:01) metoclopramide [From Reglan] Allergy (Verified 12/14/19 11:01) Home Medications: protonix. symbicort. spiriva. pro-air Past Medical History - Social History Smoking Status: Never Smoker Chew tobacco use (# tins/day): No Frequency of alcohol use: None Drug Abuse: None Family History: Reviewed & Not Pertinent, CAD - Mother, Hypertension - Hypertension Patient has suicidal ideation: No Patient has homicidal ideation: No - Past Medical History Cardiac Medical History: Denies: Hx Coronary Artery Disease, Hx Heart Attack, Hx Hypercholesterolemia, Hx Hypertension Pulmonary Medical History: Reports: Hx Asthma Denies: Hx Bronchitis, Hx COPD, Hx Pneumonia Neurological Medical History: Reports: Hx Migraine. Denies: Hx Cerebrovascular Accident, Hx Seizures Renal/ Medical History: Denies: Hx Peritoneal Dialysis GI Medical History: Reports: Hx Gastroesophageal Reflux Disease, Hx Colonoscopy, Hx Endoscopy Musculoskeletal Medical History: Denies Hx Arthritis Skin Medical History: Reports Hx Eczema Past Surgical History: Reports: Hx Section - x2, Hx Cholecystectomy, Other - EGD 2 weeks ago, colonoscopy this morning - Immunizations Immunizations up to date: Yes Hx Diphtheria, Pertussis, Tetanus Vaccination: Yes - 2018 Review of Systems - Review of Systems Notes: Constitutional: Negative for fever. HENT: Negative for sore throat. Eyes: Negative for visual changes. Cardiovascular: Negative for chest pain. Respiratory: Negative for shortness of breath. Gastrointestinal: Positive for nausea. Negative for abdominal pain, vomiting or diarrhea. Genitourinary: Negative for dysuria. Musculoskeletal: Negative for back pain. Skin: Negative for rash. Neurological: Positive for headaches. Negative for weakness or numbness. 10 point ROS negative except as marked above and in HPI. Physical Exam - Vital signs Vitals: Temp Pulse Resp BP Pulse Ox 98.2 F 98 16 136/56 H 98 12/14/19 10:58 12/14/19 10:58 12/14/19 10:58 12/14/19 10:58 12/14/19 10:58 - Notes Notes: GENERAL: Well-appearing, well-nourished and in no acute distress. HEAD: Atraumatic, normocephalic. EYES: Pupils equal round and reactive to light, extraocular movements intact, sclera anicteric, conjunctiva are normal. NECK: Normal range of motion, supple without lymphadenopathy or JVD. EXTREMITIES: Normal range of motion, no pitting or edema. No clubbing or cyanosis. NEUROLOGICAL: Cranial nerves II through XII grossly intact. Normal speech, normal gait. No facial droop. No tongue deviation. PERRLA. EOM intact bilaterally. Cleaner Housekeeping strength equal bilaterally. PSYCH: Normal mood, normal affect. SKIN: Warm, Dry, normal turgor, no rashes or lesions noted. Course - Re-evaluation Re-evalutation: 12/14/19 Presentation of a headache that appears to be most consistent with tension versus migrainous type headache. Headache was not maximal in onset, patient has no focal neurologic deficits, no nuchal rigidity, vital signs within normal limits, no papilledema, and patient is overall well in appearance. Based on clinical history and examination I do not suspect an acute subarachnoid hemorrhage, dural venous sinus thrombosis, acute meningitis, or intercranial mass. Given my low clinical suspicion for any acute life-threatening etiology, I do not feel advanced neuro imaging or laboratory testing is indicated at this time. Will proceed with headache cocktail and reassess. 12/14/19 13:45 Pt states now she is having reflux. States she takes Protonix. States head pressure is still there but mildly improved. 2nd L NS ordered and Protonix. Discussed need to follow up with PCP and possibly be placed on prophylactic medication for migraines. Strict return precautions given. Pt voices understanding and agrees with plan of care. - Vital Signs Vital signs: Temp Pulse Resp BP Pulse Ox 98.2 F 98 16 136/56 H 98 12/14/19 10:58 12/14/19 10:58 12/14/19 10:58 12/14/19 10:58 12/14/19 10:58 Discharge - Discharge Clinical Impression: Headache Qualifiers: Headache type: unspecified Headache chronicity pattern: acute headache Intractability: not intractable Qualified Code(s): R51 - Headache Condition: Stable Disposition: HOME, SELF-CARE Instructions: Intravenous Compazine for Headaches ([facility]), Toradol Injection ([facility]) Additional Instructions: You have been seen in the Emergency Department (ED) for a headache. Please use Tylenol (acetaminophen) or Motrin (ibuprofen) as needed for symptoms, but only as written on the box. Please follow up with your primary care doctor as soon as possible regarding today's ED visit and your headache symptoms. Call your doctor or return to the ED if you have a worsening headache, sudden and severe headache, confusion, slurred speech, facial droop, weakness or numbness in any arm or leg, extreme fatigue, or other symptoms that concern you. Prescriptions: Ibuprofen [Motrin 800 mg Tablet] 800 mg PO Q8H PRN #30 tab PRN Reason: Ondansetron [Zofran Odt 4 mg Tablet] 1 - 2 tab PO Q4H PRN #15 tab.rapdis PRN Reason: For Nausea/Vomiting Forms: Return to Work Referrals: JASMIN GRACIA MD [Primary Care Provider] - Follow up in 3-5 days
[2019-12-14] MEDS ORDERED: PANTOPRAZOLE SODIUM 40 MG VIAL IV ONE (13:45)
[2019-12-14 15:40] VITALS: BP 133/50
== END 2019-12-14 15:15 | disposition home or self-care (01) ==
LOC: ER 10:49
DX: R51 Headache (principal); R20.0 Anesthesia of skin; R11.0 Nausea; Z88.1 Allergy status to other antibiotic agents; Z88.8 Allergy status to other drugs, medicaments and biological substances; Z79.899 Other long term (current) drug therapy; J45.909 Unspecified asthma, uncomplicated
CPT/HCPCS: 99284; 96361; 96374; 96375; 36415; 84703; J1200; J1885; C9113; J0780; J7030

== ENCOUNTER → 2020-02-09 | Outpatient (CLI) | payer BC | LOC: OD 07:09 | PROVIDERS: ATTEND Psychiatry & Neurology Neurology | DX: R20.2 Paresthesia of skin (principal) | CPT/HCPCS: 36415; 82306; 82607; 83921 ==

== ENCOUNTER 2020-02-26 09:29 | Emergency (ER) | payer BC ==
[2020-02-26] MEDS ORDERED: KETOROLAC TROMETHAMINE INJ/PF 30 MG/1 ML SDV IV ONE (10:02)
--- NOTE | 2020-02-26 10:04 | ER Document Report ---
ED Medical Screen (RME) - General Chief Complaint: Chest Pain Stated Complaint: CHEST PAIN Time Seen by Provider: 02/26/20 10:02 Primary Care Provider: LISETTE MCGOWAN DO [Primary Care Provider] - Follow up as needed Notes: HPI: 29-year-old female presenting to the emergency department complaining of 4 days of constant chest pain over the anterior chest into the left shoulder region. Pain does change with position movement and palpation. Patient states she has had this before. She does report a history of asthma as well as a history of reflux disease. States she did call her knife setter assembler Dr. Salazar last week and she is on Protonix without seeing any improvement in her symptoms. Patient does report shortness of breath. States she did have COVID- 19 screening and did receive a negative result last Sunday. No fever. She does report having to use her inhaler more frequently over the last 4 days. Patient has not seen a railroad firer for a stress test PHYSICAL EXAMINATION: There is reproducible pain on palpation of the anterior chest wall. Lung sounds are clear to auscultation regular rate and rhythm I have greeted and performed a rapid initial assessment of this patient. A comprehensive ED assessment and evaluation of the patient, analysis of test results and completion of medical decision making process will be conducted by an additional ED providers. TRAVEL OUTSIDE OF THE [place] IN LAST 30 DAYS: No - Related Data Allergies/Adverse Reactions: amoxicillin Allergy (Verified 02/26/20 10:03) clindamycin [Clindamycin] Allergy (Verified 02/26/20 10:03) metoclopramide [From Reglan] Allergy (Verified 02/26/20 10:03) Home Medications: protonix, spiriva, symbicort, albuterol, klonopin Past Medical History - Social History Chew tobacco use (# tins/day): No Frequency of alcohol use: None Drug Abuse: None - Past Medical History Cardiac Medical History: Denies: Hx Coronary Artery Disease, Hx Heart Attack, Hx Hypercholesterolemia, Hx Hypertension Pulmonary Medical History: Reports: Hx Asthma Denies: Hx Bronchitis, Hx COPD, Hx Pneumonia Neurological Medical History: Reports: Hx Migraine. Denies: Hx Cerebrovascular Accident, Hx Seizures Renal/ Medical History: Denies: Hx Peritoneal Dialysis GI Medical History: Reports: Hx Gastroesophageal Reflux Disease, Hx Colonoscopy, Hx Endoscopy Musculoskeltal Medical History: Denies Hx Arthritis Skin Medical History: Reports Hx Eczema Past Surgical History: Reports: Hx Section - x2, Hx Cholecystectomy, Other - EGD 2 weeks ago, colonoscopy this morning - Immunizations Immunizations up to date: Yes Hx Diphtheria, Pertussis, Tetanus Vaccination: Yes - 2018 Physical Exam - Vital signs Vitals: Temp Pulse Resp BP Pulse Ox 98.4 F 92 16 142/81 H 99 02/26/20 09:37 02/26/20 09:37 02/26/20 09:37 02/26/20 09:37 02/26/20 09:37 Course - Vital Signs Vital signs: Temp Pulse Resp BP Pulse Ox 98.4 F 92 16 142/81 H 99 02/26/20 09:58 02/26/20 09:37 02/26/20 09:37 02/26/20 09:37 02/26/20 09:37 Doctor's Discharge - Discharge Referrals: LISETTE MCGOWAN DO [Primary Care Provider] - Follow up as needed
[2020-02-26 10:42] LABS: PROTHROMBIN TIME 13.2 SEC (11.4-15.4)
[2020-02-26 10:47] LABS: ABSOLUTE EOSINOPHILS # (AUTO) 0.1 10^3/uL (0.0-0.6); ABSOLUTE LYMPHOCYTES (AUTO) 0.7 10^3/uL (0.5-4.7); ABSOLUTE MONOCYTES (AUTO) 0.4 10^3/uL (0.1-1.4); ABSOLUTE NEUT (AUTO) 4.2 10^3/uL (1.7-8.2); BASOPHILS % (AUTO) 0.5 % (0-2); EOSINOPHILS % (AUTO) 1.3 % (0-6); HEMATOCRIT 35.1 % (36.0-47.0); HEMOGLOBIN 11.3 g/dL (12.0-15.5); LYMPHOCYTES % (AUTO) 12.5 % (13-45); MEAN CORPUSCULAR HEMOGLOBIN 22.6 pg (27.0-33.4); MEAN CORPUSCULAR HGB CONC 32.2 g/dL (32.0-36.0); MEAN CORPUSCULAR VOLUME 70 fl (80-97); MONOCYTES % (AUTO) 8.2 % (3-13); PLATELET COUNT 325 10^3/uL (150-450); RED CELL DISTRIBUTION WIDTH 14.8 % (11.5-14.0); SEGMENTED NEUTROPHILS % (AUTO) 77.5 % (42-78); TOTAL CELLS COUNTED % (AUTO) 100 %; WHITE BLOOD COUNT 5.5 10^3/uL (4.0-10.5)
[2020-02-26 10:58] LABS: ALBUMIN 3.5 g/dL (3.5-5.0); ALKALINE PHOSPHATASE 77 U/L (38-126); ASPARTATE AMINO TRANSFERASE 16 U/L (14-36); BILIRUBIN,TOTAL 0.3 mg/dL (0.2-1.3); BLOOD UREA NITROGEN 3 mg/dL (7-20); CALCIUM 9.1 mg/dL (8.4-10.2); GLUCOSE 91 mg/dL (75-110); POTASSIUM 4.3 mmol/L (3.6-5.0); TOTAL PROTEIN 6.6 g/dL (6.3-8.2)
[2020-02-26 11:04] LABS: CARBON DIOXIDE 28 mmol/L (22-30); CHLORIDE 105 mmol/L (98-107)
[2020-02-26 11:05] LABS: ANION GAP 4 (5-19)
--- NOTE | 2020-02-26 11:22 | RADIOLOGY REPORT (SQ) ---
EXAM DESCRIPTION: CHEST 2 VIEWS IMAGES COMPLETED DATE/TIME: 02/26/2020 11:06 am REASON FOR STUDY: sob COMPARISON: 12/10/2019 TECHNIQUE: Frontal and lateral radiographic views of the chest acquired. NUMBER OF VIEWS: Two view. LIMITATIONS: None. FINDINGS: LUNGS AND PLEURA: No opacities, masses or pneumothorax. No pleural effusion. MEDIASTINUM AND HILAR STRUCTURES: No masses or contour abnormalities. HEART AND VASCULAR STRUCTURES: Heart normal size. No evidence for failure. BONES: No acute findings. HARDWARE: None in the chest. OTHER: No other significant finding. IMPRESSION: NO SIGNIFICANT RADIOGRAPHIC FINDING IN THE CHEST. TECHNICAL DOCUMENTATION: JOB ID: [id number] 2010 [employer]- All Rights Reserved Reading location - IP/workstation name: [email or web address]
[2020-02-26] MEDS ORDERED: IPRATROPIUM/ALBUTEROL 0.5-2.5 MG/3 ML AMPUL NEB ONE ×2 (11:57→14:51)
[2020-02-26] MEDS ORDERED: METHYLPREDNISOLONE INJ 125 MG/2 ML SDV IV ONE (11:57)
[2020-02-26] MEDS ORDERED: ASPIRIN 81 MG TABLET, CHEWABLE PO ONE (11:58)
--- NOTE | 2020-02-26 12:04 | ER Document Report ---
ED General - General Chief Complaint: Chest Pain Stated Complaint: CHEST PAIN Time Seen by Provider: 02/26/20 10:02 Primary Care Provider: LISETTE MCGOWAN DO [NO LOCAL MD] - Follow up as needed TRAVEL OUTSIDE OF THE [place] IN LAST 30 DAYS: No - HPI Notes: 29-year-old female with a history of asthma presents emergency room with complaints of substernal chest pain that started approximately 3 days ago and has been constant. Patient reports that sometimes it does change with position and movements other times it does not. patient reports some shortness of breath on exertion, she is unsure if this is her asthma exacerbation or because of her chest pain. Denies any radiation of chest pain. Patient is a non- smoker. Reports mom is is a history of CHF and dad has a history of seizures but no history of ACS or CVAs. No recent surgery, has not control, no recent surgery, no history of cancer no periods of immobilization. Denies any pedal edema. Patient has been, testing by her PCP and it was negative. Patient did start on Protonix last week by her template inspector without any improvement. Has never been seen by labor arbitrator for stress test. patient has been nebulizing at home every 2 hours and using pro-air, was recently switched from Symbicort to a new medication called trilogy which she has not started yet by her primary care provider, Dr. Anne. Patient reports chest tightness that is not worse with exertion at rest. Last menstrual cycle was February 16, 2020. Denies fevers, chills, palpitations, nausea, vomiting, diarrhea, abdominal pain, mohan turia,blurred vision, double vision, loss of vision, speech changes, LH, dizziness, syncope, headaches, wheezing, ST, URI, neck pain, weakness, bowel or bladder dysfunction, saddle anesthesia, numbness or tingling in bilateral upper or lower extremities equally, muscle paralysis, weakness in bilateral upper or lower extremities equally or rash. Denies IV drug use. - Related Data Allergies/Adverse Reactions: amoxicillin Allergy (Verified 02/26/20 10:03) clindamycin [Clindamycin] Allergy (Verified 02/26/20 10:03) metoclopramide [From Reglan] Allergy (Verified 02/26/20 10:03) Home Medications: protonix, spiriva, symbicort, albuterol, klonopin Past Medical History - General Information source: Patient - Social History Smoking Status: Never Smoker Chew tobacco use (# tins/day): No Frequency of alcohol use: None Drug Abuse: None Family History: Reviewed & Not Pertinent, CAD - Mother, Hypertension - Hypertension Patient has homicidal ideation: No - Past Medical History Cardiac Medical History: Denies: Hx Coronary Artery Disease, Hx Heart Attack, Hx Hypercholesterolemia, Hx Hypertension Pulmonary Medical History: Reports: Hx Asthma Denies: Hx Bronchitis, Hx COPD, Hx Pneumonia Neurological Medical History: Reports: Hx Migraine. Denies: Hx Cerebrovascular Accident, Hx Seizures Renal/ Medical History: Denies: Hx Peritoneal Dialysis GI Medical History: Reports: Hx Gastroesophageal Reflux Disease, Hx Colonoscopy, Hx Endoscopy Musculoskeletal Medical History: Denies Hx Arthritis Skin Medical History: Reports Hx Eczema Past Surgical History: Reports: Hx Section - x2, Hx Cholecystectomy, Other - EGD 2 weeks ago, colonoscopy this morning - Immunizations Immunizations up to date: Yes Hx Diphtheria, Pertussis, Tetanus Vaccination: Yes - 2017 Review of Systems - Review of Systems Constitutional: No symptoms reported EENT: No symptoms reported Cardiovascular: See HPI Respiratory: See HPI Gastrointestinal: No symptoms reported Genitourinary: No symptoms reported Female Genitourinary: No symptoms reported Musculoskeletal: No symptoms reported Skin: No symptoms reported Hematologic/Lymphatic: No symptoms reported Neurological/Psychological: No symptoms reported Physical Exam - Vital signs Vitals: Temp Pulse Resp BP Pulse Ox 98.4 F 92 16 142/81 H 99 02/26/20 09:37 02/26/20 09:37 02/26/20 09:37 02/26/20 09:37 02/26/20 09:37 - Notes Notes: PHYSICAL EXAMINATION: reviewed vital signs by RN GENERAL: Well-appearing, well-nourished and in no acute distress. HEAD: Atraumatic, normocephalic. EYES: Pupils equal round and reactive to light, extraocular movements intact, conjunctiva are normal. ENT: Nares patent, oropharynx clear without exudates. Moist mucous membranes. NECK: Normal range of motion, supple without lymphadenopathy LUNGS: Breath sounds clear to auscultation bilaterally and equal. No wheezes rales or rhonchi. HEART: Regular rate and rhythm without murmurs. Able to reproduce chest pain on anterior chest wall. ABDOMEN: Soft, nontender, nondistended abdomen. No guarding, no rebound. No masses appreciated. Female : deferred Musculoskeletal: Normal range of motion, no pitting or edema. No cyanosis. NEUROLOGICAL: Cranial nerves grossly intact. Normal speech, normal gait. Normal sensory, motor exams PSYCH: Normal mood, normal affect. SKIN: Warm, Dry, normal turgor, no rashes or lesions noted. HPI: 29-year-old female presenting to the emergency department complaining of 4 days of constant chest pain over the anterior chest into the left shoulder region. Pain does change with position movement and palpation. Patient states she has had this before. She does report a history of asthma as well as a history of reflux disease. States she did call her template inspector Dr. Salazar last week and she is on Protonix without seeing any improvement in her symptoms. Patient does report shortness of breath. States she did have COVID- 19 screening and did receive a negative result last Sunday. No fever. She does report having to use her inhaler more frequently over the last 4 days. Patient has not seen a labor arbitrator for a stress test PHYSICAL EXAMINATION: There is reproducible pain on palpation of the anterior chest wall. Lung sounds are clear to auscultation regular rate and rhythm Course - Re-evaluation Re-evalutation: 02/26/20 12:03 AFebrile vital stable no distress. Nurses notes reviewed. CBC negative leukocytosis or anemia, CMP negative for hepatic or renal dysfunction. EKG negative for STEMI, no ST segment changes. Urine hCG negative initial troponin negative. pt given a breathing treatment with some relief. Chest x-ray negative for pneumonia, pneumothorax or other findings. d dimer was elevated at 0.71, will order CTA. Vital signs remained stable with heart rate slightly elevated at present. Patient states she also has anxiety that she is dealing with. She was recently cleared for any MS or lupus by her neurologist. Both troponins came back negative. CTA was negative for PE. Discussed with patient that she does not have any acute findings today for any PE. Discussed all findings with patient and she verbalized an understanding, she stated that this may be due to her increased anxiety due to the pandemic. Advised to follow-up with PCP within the next 24 to 48 hours as well as steward/stewardess banquet. After performing a Medical Screening Examination, I estimate there is LOW risk for RUPTURED ESOPHAGUS, PNEUMOTHORAX, PULMONARY EMBOLISM, ACUTE CORONARY SYNDROME, OR THORACIC AORTIC DISSECTION, thus I consider the discharge disposition reasonable. I have reevaluated this patient multiple times and no significant life threatening changes are noted. The patient and I have discussed the diagnosis and risks, and we agree with discharging home with close follow-up. We also discussed returning to the Emergency Department immediately if new or worsening symptoms occur. We have discussed the symptoms which are most concerning (e.g., bloody sputum, worsening pain or shortness of breath) that necessitate immediate return. - Vital Signs Vital signs: Temp Pulse Resp BP Pulse Ox 98.4 F 92 16 132/94 H 98 02/26/20 09:58 02/26/20 09:37 02/26/20 12:00 02/26/20 10:30 02/26/20 12:00 - Laboratory Result Diagrams: 02/26/20 10:20 02/26/20 10:20 Laboratory results interpreted by me: 02/26/20 02/26/20 02/26/20 10:20 10:20 10:20 Hgb 11.3 L Hct 35.1 L MCV 70 L MCH 22.6 L RDW 14.8 H Lymph % (Auto) 12.5 L D-Dimer 0.71 H Anion Gap 4 L BUN 3 L Discharge - Discharge Clinical Impression: Asthma, Chest pain Condition: Stable Disposition: HOME, SELF-CARE Instructions: Chest Wall Pain ([facility]), Chest Pain of Unclear Cause ([facility]) Additional Instructions: Scan of your chest to check for pulmonary embolism was negative. Your labs otherwise unremarkable. Your chest x-ray was normal. You were given 2 breathing treatments here today. Likely your asthma is getting a bit exacerbated with the change in your medication and allergy season. Please follow-up with your primary care provider within the next 24 to 48 hours as well as a steward/stewardess banquet, referral has been given. I recommended you see your physician within the next 24-48 hours to be evaluated for consideration of a stress test. Please return to emergency department immediately if you have worsening of your chest pain, shortness of breath, vomiting, become unable to exert yourself due to pain or difficulty breathing, you pass out, or have any pain that radiates into your arms, jaw, or back. Please also return if you have any additional symptoms that are concerning to you. Please return to the emergency room if you experience any shortness of breath, chest pain, fever, worsening symptoms etc. Return immediately for any new or worsening symptoms. Follow up with primary care provider, call tomorrow to make followup appointment. Prescriptions: Albuterol Sulfate [Proair Respiclick] 90 mcg IH Q4HP PRN #1 aer.[id number] PRN Reason: Prednisone [Deltasone 20 mg Tablet] 3 tab PO DAILY 5 Days #15 tablet Forms: Return to Work Referrals: LISETTE MCGOWAN DO [NO LOCAL MD] - Follow up as needed GUMARO VITALE MD [ACTIVE STAFF] - Follow up as needed
--- NOTE | 2020-02-26 15:23 | RADIOLOGY REPORT (SQ) ---
EXAM DESCRIPTION: CTA CHEST IMAGES COMPLETED DATE/TIME: 02/26/2020 3:09 pm REASON FOR STUDY: elevated d dimer COMPARISON: Numerous, most recent 05/03/2019. TECHNIQUE: CT scan of the chest performed using helical scanning technique with dynamic intravenous contrast injection. Images reviewed with lung, soft tissue and bone windows. Reconstructed coronal and sagittal MPR images reviewed. Additional 3 dimensional post-processing performed to develop Maximal Intensity Projection images (NV P). All images stored on PACS. All CT scanners at this facility use dose modulation, iterative reconstruction, and/or weight based d osing when appropriate to reduce radiation dose to as low as reasonably achievable (ALARA). [facility]: Dose Right [facility]: CareDose [facility]: Dose Right [facility]: Teradose 4D [facility]: [place] [employer] CONTRAST TYPE AND DOSE: contrast/concentration: Isovue 350.00 mg/ml; Total Contrast Delivered: 75.0 ml; Total Saline Delivered: 75.0 ml Contrast bolus adequate for pulmonary arteries and aorta. RENAL FUNCTION: GFR > 60. RADIATION DOSE: CT Rad equipment meets quality standard of care and radiation dose reduction techniq ues were employed. CTDIvol: 19.8 - 28.6 mGy. DLP: 998 mGy-cm. . LIMITATIONS: None. FINDINGS: LUNGS AND PLEURA: No masses, infiltrates, or pneumothorax. No pleural effusions or pleura l calcifications. AORTA AND GREAT VESSELS: No aneurysm. Contrast bolus not optimized for the aorta. HEART: No pericardial effusion. No significant coronary artery calcifications. PULMONARY ARTERIES: No emboli visualized in the main pulmonary arteries or the segmental branches. HILAR AND MEDIASTINAL STRUCTURES: No identified masses or abnormal nodes. HARDWARE: None in the chest. UPPER ABDOMEN: Small hiatal hernia. THYROID AND OTHER SOFT TISSUES: No masses. No adenopathy. BONES: No acute or significant finding. 3D MIPS: Confirm above findings. OTHER: No other significant finding. IMPRESSION: No PE. No acute findings. COMMENT: Quality ID # [id number]: Final reports with documentation of one or more dose reduction techniques (e.g., Automated exposure control, adjustment of the mA and/or kV according to patient size, use of iterative reconstruction technique) TECHNICAL DOCUMENTATION: JOB ID: [id number] 2010 [employer]- All Rights Reserved Reading location - IP/workstation name: [email or web address]
[2020-02-26 16:16] VITALS: BP 145/98
--- NOTE | 2020-02-26 23:01 | EKG REPORT ---
SEVERITY:- NORMAL ECG - SINUS RHYTHM : Confirmed by: Karol Leahy 26-Feb-2020 22:59:54
== END 2020-02-26 16:15 | disposition home or self-care (01) ==
LOC: ER 09:29
DX: R07.89 Other chest pain (principal); R07.2 Precordial pain; M25.512 Pain in left shoulder; J45.909 Unspecified asthma, uncomplicated; R06.02 Shortness of breath; K21.9 Gastro-esophageal reflux disease without esophagitis; Z79.899 Other long term (current) drug therapy; Z88.0 Allergy status to penicillin; Z88.1 Allergy status to other antibiotic agents; Z88.8 Allergy status to other drugs, medicaments and biological substances; Z82.49 Family history of ischemic heart disease and other diseases of the circulatory system
CPT/HCPCS: 93005; 94640 ×2; 99285; 96374; 96375; 36415; 84703; 85025; 85610; 80053; 84484; 85379; 71046; 71275; 93010; J2930; J1885; J7620

== ENCOUNTER 2020-04-10 14:11 | Emergency (ER) | payer BC ==
--- NOTE | 2020-04-10 15:08 | ER Document Report ---
HPI - HPI Time Seen by Provider: 04/10/20 14:54 Pain Level: Denies Context: Patient is a 30-year-old female who presents to the emergency department with a chief complaint of weakness and states that she has a "fog." Symptoms for about a month. Patient was seen by her primary care provider multiple times and had studies done, but they could not find any cause for her "fog." Patient does admit to some sinus congestion. Denies any shortness of breath or difficulty breathing. She is unsure of whether or not she could be . Eyes any chest pain, difficulty breathing, cough, abdominal pain, nausea, or vomiting, or any other symptoms. - CONSTITUTIONAL Constitutional: DENIES: Fever, Chills - EENT EENT: REPORTS: Congestion. DENIES: Sore Throat, Ear Pain, Nasal Drainage-Clear, Nasal Drainage-Purulent, Eye problems - NEURO Neurology: DENIES: Headache - CARDIOVASCULAR Cardiovascular: DENIES: Chest pain - RESPIRATORY Respiratory: DENIES: Trouble Breathing, Coughing - GASTROINTESTINAL Gastrointestinal: DENIES: Abdominal Pain, Nausea, Patient vomiting, Diarrhea, Constipation, Black / Bloody Stools - URINARY Urinary: DENIES: Dysuria, Urgency, Frequency - REPRODUCTIVE Reproductive: DENIES: : - MUSCULOSKELETAL Musculoskeletal: DENIES: Extremity pain, Swelling - DERM Skin Color: Normal Skin Problems: None Past Medical History - Social History Smoking Status: Never Smoker Frequency of alcohol use: None Drug Abuse: None Family History: Reviewed & Not Pertinent, CAD - Mother, Hypertension - Hypertension Patient has homicidal ideation: No - Past Medical History Cardiac Medical History: Denies: Hx Coronary Artery Disease, Hx Heart Attack, Hx Hypercholesterolemia, Hx Hypertension Pulmonary Medical History: Reports: Hx Asthma Denies: Hx Bronchitis, Hx COPD, Hx Pneumonia Neurological Medical History: Reports: Hx Migraine. Denies: Hx Cerebrovascular Accident, Hx Seizures Renal/ Medical History: Denies: Hx Peritoneal Dialysis GI Medical History: Reports: Hx Gastroesophageal Reflux Disease, Hx Colonoscopy, Hx Endoscopy Musculoskeletal Medical History: Denies Hx Arthritis Skin Medical History: Reports Hx Eczema Past Surgical History: Reports: Hx Section - x2, Hx Cholecystectomy, Other - EGD 2 weeks ago, colonoscopy this morning - Immunizations Immunizations up to date: Yes Hx Diphtheria, Pertussis, Tetanus Vaccination: Yes - 2018 [facility] Provider Document - CONSTITUTIONAL Agree With Documented VS: Yes Exam Limitations: No Limitations General Appearance: No Apparent Distress - INFECTION CONTROL TRAVEL OUTSIDE OF THE [place] IN LAST 30 DAYS: No - HEENT HEENT: Atraumatic, Normocephalic, PERRLA. negative: Conjuctival Injection, Pharyngeal Exudate, Pharyngeal Tenderness, Pharyngeal Erythema, Tympanic Membrane Red, Tympanic Membrane Bulging Notes: Any erythema noted to nasal mucosa. Maxillary and frontal sinus pressure noted on exam. - NECK Neck: Normal Inspection, Supple. negative: Lymphadenopathy-Left, Lymphadenopathy-Right - RESPIRATORY Respiratory: Breath Sounds Normal, No Respiratory Distress - CARDIOVASCULAR Cardiovascular: Regular Rate, Regular Rhythm Pulses: Normal: Radial - GI/ABDOMEN Gastrointestinal: Abdomen Soft, Abdomen Non-Tender - MUSCULOSKELETAL/EXTREMETIES Musculoskeletal/Extremeties: FROM - NEURO Level of Consciousness: Awake, Alert, Appropriate - DERM Integumentary: Warm, Dry, No Rash Course - Re-evaluation Re-evalutation: 04/10/20 test is negative. I suspect the patient's symptoms are due to acute sinusitis. We will start her on the patient on doxycycline and Flonase. She will follow-up with her primary care provider. I do not suspect an acute stroke, pneumonia, or any life-threatening etiology at this time. Follow-up precautions were given. Verbal discharge instructions were given to the patient. They verbalized understanding. They are stable for discharge. - Vital Signs Vital signs: Temp Pulse Resp BP Pulse Ox 98.8 F 100 16 142/100 H 98 04/10/20 14:46 04/10/20 14:38 04/10/20 14:38 04/10/20 14:38 04/10/20 14:38 Discharge - Discharge Clinical Impression: Acute sinusitis Qualifiers: Sinusitis location: unspecified location Recurrence: not specified as recurrent Qualified Code(s): J01.90 - Acute sinusitis, unspecified Condition: Stable Disposition: HOME, SELF-CARE Additional Instructions: Sinusitis You have sinusitis, an infection of the sinus cavities of the face. The sinuses are air-filled chambers which open into the inside of the nose. Bacteria and pus fill a sinus, causing pain, drainage, and fever. Sinusitis is treated with antibiotics. Often, expectorants (to thin the sinus mucous) or decongestants (to reduce swelling) are prescribed as well. Healing requires seven to 10 days. Avoid chemical fumes, pollens, dusts, and smoke (especially cigarette smoke). Keep the air humidified in your bedroom and work area and take plenty of liquids by mouth. This condition can be serious if the infection spreads. If your symptoms worsen, or if you develop severe headache, high fever, stiff neck, or a rash, you must call the doctor or return for re-evaluation. Prescriptions: Doxycycline Hyclate 100 mg PO BID #14 tablet. Fluticasone Propionate [Flonase Nasal Montgomery 50 Mcg/Montgomery 16 gm] 2 sprays NASL DAILY #1 inhaler Referrals: FLAQUITO JOHNSON MD [NO LOCAL MD] - Follow up in 1 week
[2020-04-10 16:20] VITALS: BP 134/91
== END 2020-04-10 16:20 | disposition home or self-care (01) ==
LOC: ER 14:11
DX: J01.90 Acute sinusitis, unspecified (principal); R53.1 Weakness; R09.81 Nasal congestion; J45.909 Unspecified asthma, uncomplicated
CPT/HCPCS: 81025; 99284

== ENCOUNTER 2020-05-17 06:49 | Emergency (ER) | payer BC ==
--- NOTE | 2020-05-17 07:26 | EKG REPORT ---
SEVERITY:- NORMAL ECG - SINUS RHYTHM : Confirmed by: Rohan Herndon MD 17-May-2020 07:25:04
--- NOTE | 2020-05-17 08:18 | RADIOLOGY REPORT (SQ) ---
EXAM DESCRIPTION: CHEST 2 VIEWS IMAGES COMPLETED DATE/TIME: 05/17/2020 8:10 am REASON FOR STUDY: chest pain and tenderness COMPARISON: 02/26/2020 EXAM PARAMETERS: NUMBER OF VIEWS: two views TECHNIQUE: Digital Frontal and Lateral radiographic views of the chest acquired. RADIATION DOSE: NA LIMITATIONS: none FINDINGS: LUNGS AND PLEURA: No opacities, masses or pneumothorax. No pleural effusion. MEDIASTINUM AND HILAR STRUCTURES: No masses or contour abnormalities. HEART AND VASCULAR STRUCTURES: Heart normal size. No evidence for failure. BONES: No acute findings. HARDWARE: None in the chest. OTHER: No other significant finding. IMPRESSION: NO ACUTE RADIOGRAPHIC FINDING IN THE CHEST. TECHNICAL DOCUMENTATION: JOB ID: [id number] 2010 [email or web address] All Rights Reserved Reading location - IP/workstation name: [email or web address]
[2020-05-17 08:48] LABS: ABSOLUTE EOSINOPHILS # (AUTO) 0.2 10^3/uL (0.0-0.6); ABSOLUTE LYMPHOCYTES (AUTO) 1.1 10^3/uL (0.5-4.7); ABSOLUTE MONOCYTES (AUTO) 0.5 10^3/uL (0.1-1.4); ABSOLUTE NEUT (AUTO) 3.5 10^3/uL (1.7-8.2); BASOPHILS % (AUTO) 0.9 % (0-2); EOSINOPHILS % (AUTO) 4.2 % (0-6); HEMATOCRIT 34.4 % (36.0-47.0); HEMOGLOBIN 10.9 g/dL (12.0-15.5); LYMPHOCYTES % (AUTO) 20.4 % (13-45); MEAN CORPUSCULAR HEMOGLOBIN 21.9 pg (27.0-33.4); MEAN CORPUSCULAR HGB CONC 31.6 g/dL (32.0-36.0); MEAN CORPUSCULAR VOLUME 69 fl (80-97); MONOCYTES % (AUTO) 9.9 % (3-13); PLATELET COUNT 343 10^3/uL (150-450); RED BLOOD COUNT 4.98 10^6/uL (3.72-5.28); RED CELL DISTRIBUTION WIDTH 14.4 % (11.5-14.0); SEGMENTED NEUTROPHILS % (AUTO) 64.6 % (42-78); TOTAL CELLS COUNTED % (AUTO) 100 %; WHITE BLOOD COUNT 5.4 10^3/uL (4.0-10.5)
[2020-05-17 09:09] LABS: ALBUMIN 3.4 g/dL (3.5-5.0); ALKALINE PHOSPHATASE 70 U/L (38-126); ASPARTATE AMINO TRANSFERASE 18 U/L (14-36); BILIRUBIN,TOTAL 0.4 mg/dL (0.2-1.3); BLOOD UREA NITROGEN 9 mg/dL (7-20); CALCIUM 8.8 mg/dL (8.4-10.2); CREATINE KINASE 96 U/L (30-135); GLUCOSE 89 mg/dL (75-110); POTASSIUM 4.3 mmol/L (3.6-5.0); TOTAL PROTEIN 6.6 g/dL (6.3-8.2)
[2020-05-17 09:14] LABS: CARBON DIOXIDE 28 mmol/L (22-30); CHLORIDE 104 mmol/L (98-107)
[2020-05-17 09:19] LABS: CREATINE KINASE MB 0.27 ng/mL (<4.55)
[2020-05-17 09:20] LABS: TROPONIN I < 0.012 ng/mL
[2020-05-17 09:23] LABS: ANION GAP 3 (5-19)
--- NOTE | 2020-05-17 09:59 | ER Document Report ---
ED General - General Chief Complaint: Chest Pain Stated Complaint: RIGHT CHEST PAIN AND TIGHTNESS,BACK PAIN Time Seen by Provider: 05/17/20 09:29 Primary Care Provider: JASMIN GRACIA MD [Primary Care Provider] - Follow up as needed TRAVEL OUTSIDE OF THE [place] IN LAST 30 DAYS: No - HPI Notes: Chief complaint: Chest pain History of present illness: 30-year-old female complaining of chronic/intermittent chest pain which is been going on for more than 6 months. She has been to the emergency department several times for this here and also has been worked up extensively by her primary care physician Dr. Giovani Anne and says she has been referred previously to a neurologist. No one is been able to give her a specific diagnosis. Patient describes her pain as sharp and intermittent primarily in the center of the chest and upper back and at times radiating to both arms. This is now become more generalized and is aggravated by rolling over in bed at night. This is not specifically related to respiration, eating, or physical exertion. Patient has been on a wide variety of medications as per her medication list with no real improvement in the pain. She feels her pain is getting worse. Patient notes that her mother has had similar symptoms and was ultimately told that she had fibromyalgia. Patient is a non-smoker. She is obese. She is not diabetic. She denies hyper lipidemia. There is no family history of CAD. There is no family history of thromboembolic disease. Patient was previously worked up here in February of this year for similar symptoms and had a minimally elevated d-dimer. She underwent a CTA of the chest at that time it was negative. HEART Score: HISTORY 0 ECG 0 AGE 0 RISK FACTORS 1 TROPONIN >3x=2 TOTAL: 1 If HEART score is < 3 AND both tronponin measurments are normal, the 30 day risk of a major adverse cardiac event (all-cause mortality, myocardia infarction or need for coronary revscularization) is < 1% (Sensitivity 100%, NPV 100%). - Related Data Allergies/Adverse Reactions: amoxicillin Allergy (Verified 02/26/20 10:03) clindamycin [Clindamycin] Allergy (Verified 02/26/20 10:03) metoclopramide [From Reglan] Allergy (Verified 02/26/20 10:03) Home Medications: Protonix. Spiriva. Symbicort. Zyrtec. Clonipine Past Medical History - General Information source: Patient, [facility], [facility] Records - Social History Smoking Status: Never Smoker Frequency of alcohol use: None Drug Abuse: None Family History: Reviewed & Not Pertinent, Hypertension - Hypertension. denies: CAD - Past Medical History Cardiac Medical History: Denies: Hx Coronary Artery Disease, Hx Heart Attack, Hx Hypercholesterolemia, Hx Hypertension Pulmonary Medical History: Reports: Hx Asthma Denies: Hx Bronchitis, Hx COPD, Hx Pneumonia Neurological Medical History: Reports: Hx Migraine. Denies: Hx Cerebrovascular Accident, Hx Seizures Renal/ Medical History: Denies: Hx Peritoneal Dialysis GI Medical History: Reports: Hx Gastroesophageal Reflux Disease, Hx Colonoscopy, Hx Endoscopy Musculoskeletal Medical History: Denies Hx Arthritis Skin Medical History: Reports Hx Eczema Past Surgical History: Reports: Hx Section - x2, Hx Cholecystectomy, Other - EGD 2 weeks ago, colonoscopy this morning - Immunizations Immunizations up to date: Yes Hx Diphtheria, Pertussis, Tetanus Vaccination: Yes - 2017 Review of Systems - Review of Systems Notes: Constitutional: Negative for fever. HENT: Negative for sore throat. Eyes: Negative for visual changes. Cardiovascular: As per HPI. Respiratory: Negative for shortness of breath. Gastrointestinal: Negative for abdominal pain, vomiting or diarrhea. Genitourinary: Negative for dysuria. Musculoskeletal: As per HPI. Skin: Negative for rash. Neurological: Negative for headaches, weakness or numbness. 10 point ROS negative except as marked above and in HPI. Physical Exam - Vital signs Vitals: Temp Pulse Resp BP Pulse Ox 98.3 F 89 20 133/79 H 100 05/17/20 06:53 05/17/20 06:53 05/17/20 06:53 05/17/20 06:53 05/17/20 06:53 - Notes Notes: GENERAL: Obese female appearing otherwise in no acute distress. SKIN: Good turgor no rashes. HEAD: Normocephalic atraumatic. EYES: PERRLA. EOMI. Conjunctivae and sclerae clear. EARS: CANALS AND TMS CLEAR. NOSE: CLEAR. MOUTH: Moist mucosa. Good dentition. No stridor or edema. No drooling. NECK: Supple. No masses or thyromegaly. No adenopathy. Carotids 2+ without bruits. No JVD. BACK: Symmetrical with diffuse musculoskeletal tenderness. CHEST: Diffuse tenderness with exact reproduction of her pain. Respirations unlabored. Breath sounds clear and symmetrical. HEART: Regular rhythm. No murmur gallop or rub. ABDOMEN: Obese soft nontender without masses, organomegaly or rebound. Bowel sounds normally active. No bruits. GENITALIA: Deferred. EXTREMITIES: No edema. No calf tenderness. Cap refill less than 1.5 seconds. Dorsalis pedis and posterior tibial pulses 3+ and symmetrical. NEUROLOGICAL: GCS 15. Alert and oriented x3. Normal gait. Fluent speech. Cranial nerves II through XII intact. Sensorimotor and cerebellar normal. Normal tone. PSYCHIATRIC: Flat affect. Course - Re-evaluation Re-evalutation: 05/17/20 09:59 Normal EKG. Unremarkable chest x-ray. Patient has a chronic mild microcytic anemia. Troponins are normal. I went through extensive old records in the emergency department patient been worked up for the same thing multiple times with negative findings. I think at this point she meets criteria for fibromyalgia. I talked with her about this and suggested a trial of Cymbalta and follow-up with her primary care physician. - Vital Signs Vital signs: Temp Pulse Resp BP Pulse Ox 98.3 F 89 20 133/79 H 100 05/17/20 07:13 05/17/20 06:53 05/17/20 06:53 05/17/20 06:53 05/17/20 06:53 - Laboratory Result Diagrams: 05/17/20 08:00 05/17/20 08:00 Laboratory results interpreted by me: 05/17/20 05/17/20 08:00 08:00 Hgb 10.9 L Hct 34.4 L MCV 69 L MCH 21.9 L MCHC 31.6 L RDW 14.4 H Sodium 135.3 L Anion Gap 3 L Albumin 3.4 L Discharge - Discharge Clinical Impression: Chest wall pain, Fibromyalgia Condition: Stable Disposition: HOME, SELF-CARE Instructions: Chest Wall Pain ([facility]) Additional Instructions: Fibromyalgia Fibromyalgia is a syndrome of pain, fatigue, and tissue tenderness. The cause is unknown. All tests, including biopsy of tender tissues, are normal in fibromyalgia. Symptoms tend to worsen with stress. Fibromyalgia can persist for months or years. Antiinflammatory pain medicine such as ibuprofen can be helpful. Narcotics should be avoided. Medicine to help with abnormal sleep patterns and antidepressant medicine are very useful in most patients. Heat, massage, and electrical stimulation can reduce symptoms. It's important to exercise. Symptoms of fibromyalgia actually worsen with prolonged rest. Walking, swimming, or stationary biking are beneficial. You should see the doctor if pain becomes severe, or if you develop new symptoms such as joint swelling, rash, severe weakness, or shortness of breath. Return here as needed for new or worsening symptoms. Take prescribed medication. Follow-up within the next 1 week with your primary care physician. Prescriptions: Duloxetine HCl [Jimmy 30 mg Alejo.] 30 mg PO DAILY #30 capsule. Referrals: JASMIN GRACIA MD [Primary Care Provider] - Follow up as needed
[2020-05-17 10:15] VITALS: BP 127/85
== END 2020-05-17 10:10 | disposition home or self-care (01) ==
LOC: ER 06:49
DX: R07.89 Other chest pain (principal); M79.7 Fibromyalgia; M54.9 Dorsalgia, unspecified; D50.9 Iron deficiency anemia, unspecified; E66.9 Obesity, unspecified; Z88.3 Allergy status to other anti-infective agents; Z88.0 Allergy status to penicillin
CPT/HCPCS: 36415; 71046; 80053; 82550; 82553; 84484; 85025; 93005; 93010; 99285

== ENCOUNTER 2020-09-06 16:04 | Emergency (ER) | payer BC ==
--- NOTE | 2020-09-06 17:45 | ER Document Report ---
ED Medical Screen (RME) - General Chief Complaint: Weakness Stated Complaint: DIZZINESS,WEAKNESS Time Seen by Provider: 09/06/20 17:37 Primary Care Provider: JASMIN GRACIA MD [Primary Care Provider] - Follow up as needed TRAVEL OUTSIDE OF THE [place] IN LAST 30 DAYS: No - HPI Notes: Patient is a 30-year-old female who is 10 weeks and presents with weakness and lightheadedness for the past 2 days. Patient reports neck which he has been taking Tylenol for with no relief. She does have a history of migraine headaches. Patient states she also has a hard time remembering to eat and drink regularly. She reports mild nausea and vomiting but states this is typical for . She denies any vaginal bleeding or any complications with her current . - Related Data Allergies/Adverse Reactions: amoxicillin Allergy (Verified 09/06/20 17:36) clindamycin [Clindamycin] Allergy (Verified 09/06/20 17:36) metoclopramide [From Reglan] Allergy (Verified 09/06/20 17:36) Past Medical History - Past Medical History Cardiac Medical History: Denies: Hx Coronary Artery Disease, Hx Heart Attack, Hx Hypercholesterolemia, Hx Hypertension Pulmonary Medical History: Reports: Hx Asthma Denies: Hx Bronchitis, Hx COPD, Hx Pneumonia Neurological Medical History: Reports: Hx Migraine. Denies: Hx Cerebrovascular Accident, Hx Seizures Renal/ Medical History: Denies: Hx Peritoneal Dialysis GI Medical History: Reports: Hx Gastroesophageal Reflux Disease, Hx Colonoscopy, Hx Endoscopy Musculoskeltal Medical History: Denies Hx Arthritis Skin Medical History: Reports Hx Eczema Past Surgical History: Reports: Hx Section - x2, Hx Cholecystectomy, Other - EGD 2 weeks ago, colonoscopy this morning - Immunizations Immunizations up to date: Yes Hx Diphtheria, Pertussis, Tetanus Vaccination: Yes - 2017 Physical Exam - Vital signs Vitals: Temp Pulse Resp BP Pulse Ox 98.6 F 105 H 19 131/79 H 97 09/06/20 16:12 09/06/20 16:12 09/06/20 16:12 09/06/20 16:12 09/06/20 16:12 - Respiratory Respiratory status: No respiratory distress Breath sounds: Normal - Cardiovascular Rhythm: Regular Heart sounds: Normal auscultation Course - Re-evaluation Re-evalutation: I have greeted and performed a rapid initial assessment of this patient. A comprehensive ED assessment and evaluation of the patient, analysis of test results and completion of medical decision making process will be conducted by an additional ED providers. - Vital Signs Vital signs: Temp Pulse Resp BP Pulse Ox 98.6 F 105 H 19 131/79 H 97 09/06/20 16:12 09/06/20 16:12 09/06/20 16:12 09/06/20 16:12 09/06/20 16:12 Doctor's Discharge - Discharge Referrals: JASMIN GRACIA MD [Primary Care Provider] - Follow up as needed
[2020-09-06 18:05] LABS: ABSOLUTE EOSINOPHILS # (AUTO) 0.3 10^3/uL (0.0-0.6); ABSOLUTE LYMPHOCYTES (AUTO) 1.4 10^3/uL (0.5-4.7); ABSOLUTE MONOCYTES (AUTO) 0.6 10^3/uL (0.1-1.4); ABSOLUTE NEUT (AUTO) 3.6 10^3/uL (1.7-8.2); BASOPHILS % (AUTO) 0.8 % (0-2); EOSINOPHILS % (AUTO) 4.7 % (0-6); HEMOGLOBIN 10.7 g/dL (12.0-15.5); LYMPHOCYTES % (AUTO) 23.6 % (13-45); MEAN CORPUSCULAR HEMOGLOBIN 21.7 pg (27.0-33.4); MEAN CORPUSCULAR HGB CONC 31.6 g/dL (32.0-36.0); MEAN CORPUSCULAR VOLUME 69 fl (80-97); MONOCYTES % (AUTO) 10.5 % (3-13); PLATELET COUNT 330 10^3/uL (150-450); RED BLOOD COUNT 4.96 10^6/uL (3.72-5.28); SEGMENTED NEUTROPHILS % (AUTO) 60.4 % (42-78); TOTAL CELLS COUNTED % (AUTO) 100 %
[2020-09-06 18:11] LABS: APPEARANCE,URINE SLIGHTLY-CLOUDY; BILIRUBIN,URINE NEGATIVE (NEGATIVE); COLOR,URINE YELLOW; GLUCOSE, URINE NEGATIVE (NEGATIVE); KETONES,URINE NEGATIVE (NEGATIVE); LEUKOCYTE ESTERASE,URINE NEGATIVE (NEGATIVE); NITRITE,URINE NEGATIVE (NEGATIVE); PROTEIN,URINE NEGATIVE (NEGATIVE); URINE SPECIFIC GRAVITY 1.006; UROBILINOGEN,URINE NEGATIVE mg/dL (<2.0)
[2020-09-06 18:26] LABS: ALBUMIN 3.7 g/dL (3.5-5.0); ALKALINE PHOSPHATASE 73 U/L (38-126); ANION GAP 9 (5-19); ASPARTATE AMINO TRANSFERASE 19 U/L (14-36); BILIRUBIN,DIRECT 0.1 mg/dL (0.0-0.4); BILIRUBIN,TOTAL 0.2 mg/dL (0.2-1.3); BLOOD UREA NITROGEN 6 mg/dL (7-20); CALCIUM 9.3 mg/dL (8.4-10.2); CARBON DIOXIDE 23 mmol/L (22-30); CHLORIDE 104 mmol/L (98-107); GLUCOSE 88 mg/dL (75-110); POTASSIUM 4.5 mmol/L (3.6-5.0); TOTAL PROTEIN 6.7 g/dL (6.3-8.2)
[2020-09-06] MEDS ORDERED: NORMAL SALINE 1000 ML 1,000 ML IV ONE ×2 (21:59→22:03)
--- NOTE | 2020-09-06 22:08 | ER Document Report ---
ED General - General Chief Complaint: Weakness Stated Complaint: DIZZINESS,WEAKNESS Time Seen by Provider: 09/06/20 17:37 Primary Care Provider: JASMIN GRACIA MD [Primary Care Provider] - Follow up as needed TRAVEL OUTSIDE OF THE [place] IN LAST 30 DAYS: No - HPI Notes: Patient is a 30-year-old female, G3, P2 at nearly 10 weeks gestation, who presents emergency department for evaluation of weakness, dizziness. She states when she gets up she tends to get very dizzy. She has a headache this more on the right side. She does have a history of headaches, states this is not atypical for her. She is had some nausea and emesis but she relates this to prior pregnancies. She denies any vaginal bleeding, no abdominal pain. She admits that she is very busy, often "forgets" to eat or drink. She is still urinating. She denies any dysuria, hematuria, urinary frequency. No difficulty seeing, speaking, swallowing. - Related Data Allergies/Adverse Reactions: amoxicillin Allergy (Verified 09/06/20 17:36) clindamycin [Clindamycin] Allergy (Verified 09/06/20 17:36) metoclopramide [From Reglan] Allergy (Verified 09/06/20 17:36) Home Medications: vitamin Past Medical History - General Information source: Patient - Social History Smoking Status: Never Smoker Drug Abuse: None Family History: Reviewed & Not Pertinent, Hypertension. denies: CAD Patient has homicidal ideation: No - Past Medical History Cardiac Medical History: Denies: Hx Coronary Artery Disease, Hx Heart Attack, Hx Hypercholesterolemia, Hx Hypertension Pulmonary Medical History: Reports: Hx Asthma Denies: Hx Bronchitis, Hx COPD, Hx Pneumonia Neurological Medical History: Reports: Hx Migraine. Denies: Hx Cerebrovascular Accident, Hx Seizures Renal/ Medical History: Denies: Hx Peritoneal Dialysis GI Medical History: Reports: Hx Gastroesophageal Reflux Disease, Hx Colonoscopy, Hx Endoscopy Musculoskeletal Medical History: Denies Hx Arthritis Skin Medical History: Reports Hx Eczema Past Surgical History: Reports: Hx Section - x2, Hx Cholecystectomy, Other - EGD 2 weeks ago, colonoscopy this morning - Immunizations Immunizations up to date: Yes Hx Diphtheria, Pertussis, Tetanus Vaccination: Yes - 2018 Review of Systems - Review of Systems Constitutional: See HPI EENT: No symptoms reported Cardiovascular: No symptoms reported Respiratory: No symptoms reported Gastrointestinal: No symptoms reported Genitourinary: No symptoms reported Female Genitourinary: See HPI Musculoskeletal: No symptoms reported Skin: No symptoms reported Neurological/Psychological: See HPI -: Yes All other systems reviewed and negative Physical Exam - Vital signs Vitals: Temp Pulse Resp BP Pulse Ox 98.6 F 105 H 19 131/79 H 97 09/06/20 16:12 09/06/20 16:12 09/06/20 16:12 09/06/20 16:12 09/06/20 16:12 - Notes Notes: Vital signs reviewed, please refer to chart. Head is normocephalic, atraumatic. Pupils equal round, reactive to light. Neck is supple without meningismus. Heart is regular rate and rhythm. Lungs are clear to auscultation bilaterally. Abdomen is soft, nontender, normoactive bowel sounds throughout. Extremities without cyanosis, clubbing. Posterior calves are nontender. Peripheral pulses are equal. Skin is warm and dry. Patient is awake, alert, oriented x3. Cranial nerves II - XII are grossly intact without focal neurological deficits. Strength is plus 5 out of 5 bilateral upper and lower extremities. Sensation is intact. Reflexes symmetrical. Intact [id number], rapid alternating movements, [id number]. Course - Re-evaluation Re-evalutation: 09/06/20 22:07 Patient presents to the emergency department for evaluation. She was initially seen through triage and had laboratory investigations ordered. I did order her some IV fluids, as her sodium is slightly low, she is mildly dehydrated. We talked at length about the increase in blood volume that comes along with , and the need to stay well-hydrated. She voiced understanding. Her pain is minimal in her head right now. I suspect it is all secondary to dehydration at any rate. She is given 2 L of normal saline. She is to follow-u p with her OB, return to the ED with worsening concerning symptoms of any sort. 09/06/20 22:28 Patient requested that second liter of normal saline not be administered. She was reminded that she needs to stay well-hydrated, but order was discontinued and patient will be discharged. - Vital Signs Vital signs: Temp Pulse Resp BP Pulse Ox 98.2 F 94 19 98/82 L 99 09/06/20 21:04 09/06/20 21:04 09/06/20 16:12 09/06/20 21:04 09/06/20 21:04 - Laboratory Result Diagrams: 09/06/20 17:47 09/06/20 17:47 Laboratory results interpreted by me: 09/06/20 09/06/20 17:47 17:47 Hgb 10.7 L Hct 34.0 L MCV 69 L MCH 21.7 L MCHC 31.6 L RDW 15.0 H Sodium 136.4 L BUN 6 L Discharge - Discharge Clinical Impression: Dehydration, Dizziness Condition: Stable Disposition: HOME, SELF-CARE Instructions: Dehydration ([facility]) Additional Instructions: Stay hydrated as discussed. Follow-up with your OB next week. If develop worsening or new concerning symptoms of any sort, please return immediately to the emergency department for evaluation. Referrals: JASMIN GRACIA MD [Primary Care Provider] - Follow up as needed
[2020-09-06 23:02] VITALS: BP 118/53
== END 2020-09-06 23:00 | disposition home or self-care (01) ==
LOC: ER 16:04
DX: O26.91 Pregnancy related conditions, unspecified, first trimester (principal); E86.0 Dehydration; R42 Dizziness and giddiness; R53.1 Weakness; Z3A.10 10 weeks gestation of pregnancy
CPT/HCPCS: 99284; 96360; 36415; 85025; 80053; 81001; J7030

== ENCOUNTER 2020-11-02 15:51 | Emergency (ER) | payer BC, MEDICAID ==
--- NOTE | 2020-11-02 16:28 | ER Document Report ---
ED Medical Screen (RME) - General Stated Complaint: CHEST PAIN Time Seen by Provider: 11/02/20 16:20 Primary Care Provider: JASMIN GRACIA MD [Primary Care Provider] - Follow up as needed TRAVEL OUTSIDE OF THE [place] IN LAST 30 DAYS: No - HPI Notes: 11/02/20 16:27 30-year-old female 17 weeks plus presents with a history of asthma, GERD and anxiety to emergency room with substernal chest pain for the last 3 days. Patient reports it feels like something is "clutching" onto her chest, reports that radiates to her back. Reports she is having some shortness of breath, nausea and vomiting. Denies any cardiac history. Non-smoker. Reports mother has a history of CHF and hypertension, father has a history of hypertension. Denies any vaginal bleeding, vaginal pain or abdominal pain. Has tried [id number] Tylenol and Tums without relief I have greeted and performed a rapid initial assessment of this patient. A comprehensive ED assessment and evaluation of the patient, analysis of test results and completion of the medical decision making process will be conducted by additional ED providers. PHYSICAL EXAMINATION: GENERAL: Well-appearing, well-nourished and in no acute distress. HEAD: Atraumatic, normocephalic. CV: s1, s2 regular LUNGS: No respiratory distress Musculoskeletal: Normal range of motion NEUROLOGICAL: Normal speech, normal gait. SKIN: Warm, Dry, normal turgor, no rashes or lesions noted. The patient was evaluated during a global COVID-19 pandemic and that diagnosis was suspected/considered upon their initial presentation. Their evaluation, roel atment and testing was consistent with current guidelines for patients who present with complaints or symptoms and may be related to COVID-19. - Related Data Allergies/Adverse Reactions: amoxicillin Allergy (Verified 09/06/20 17:36) clindamycin [Clindamycin] Allergy (Verified 09/06/20 17:36) metoclopramide [From Reglan] Allergy (Verified 09/06/20 17:36) Past Medical History - Past Medical History Cardiac Medical History: Denies: Hx Coronary Artery Disease, Hx Heart Attack, Hx Hypercholesterolemia, Hx Hypertension Pulmonary Medical History: Reports: Hx Asthma Denies: Hx Bronchitis, Hx COPD, Hx Pneumonia Neurological Medical History: Reports: Hx Migraine. Denies: Hx Cerebrovascular Accident, Hx Seizures Renal/ Medical History: Denies: Hx Peritoneal Dialysis GI Medical History: Reports: Hx Gastroesophageal Reflux Disease, Hx Colonoscopy, Hx Endoscopy Musculoskeltal Medical History: Denies Hx Arthritis Skin Medical History: Reports Hx Eczema Past Surgical History: Reports: Hx Section - x2, Hx Cholecystectomy, Other - EGD 2 weeks ago, colonoscopy this morning - Immunizations Immunizations up to date: Yes Hx Diphtheria, Pertussis, Tetanus Vaccination: Yes - 2018 Physical Exam - Vital signs Vitals: Temp Pulse Resp BP Pulse Ox 98.3 F 93 18 123/80 100 11/02/20 16:11 11/02/20 16:11 11/02/20 16:11 11/02/20 16:11 11/02/20 16:11 Course - Vital Signs Vital signs: Temp Pulse Resp BP Pulse Ox 98.3 F 93 18 123/80 100 11/02/20 16:11 11/02/20 16:11 11/02/20 16:11 11/02/20 16:11 11/02/20 16:11 Doctor's Discharge - Discharge Referrals: JASMIN GRACIA MD [Primary Care Provider] - Follow up as needed
[2020-11-02 16:45] LABS: ABSOLUTE EOSINOPHILS # (AUTO) 0.2 10^3/uL (0.0-0.6); ABSOLUTE LYMPHOCYTES (AUTO) 1.3 10^3/uL (0.5-4.7); ABSOLUTE MONOCYTES (AUTO) 0.6 10^3/uL (0.1-1.4); ABSOLUTE NEUT (AUTO) 3.6 10^3/uL (1.7-8.2); BASOPHILS % (AUTO) 0.4 % (0-2); EOSINOPHILS % (AUTO) 3.1 % (0-6); HEMATOCRIT 31.7 % (36.0-47.0); HEMOGLOBIN 10.2 g/dL (12.0-15.5); LYMPHOCYTES % (AUTO) 23.3 % (13-45); MEAN CORPUSCULAR HEMOGLOBIN 21.3 pg (27.0-33.4); MEAN CORPUSCULAR HGB CONC 32.2 g/dL (32.0-36.0); MEAN CORPUSCULAR VOLUME 66 fl (80-97); MONOCYTES % (AUTO) 10.5 % (3-13); PLATELET COUNT 316 10^3/uL (150-450); RED BLOOD COUNT 4.79 10^6/uL (3.72-5.28); RED CELL DISTRIBUTION WIDTH 14.9 % (11.5-14.0); SEGMENTED NEUTROPHILS % (AUTO) 62.7 % (42-78); TOTAL CELLS COUNTED % (AUTO) 100 %; WHITE BLOOD COUNT 5.7 10^3/uL (4.0-10.5)
[2020-11-02 17:04] LABS: ALBUMIN 3.5 g/dL (3.5-5.0); ALKALINE PHOSPHATASE 68 U/L (38-126); ASPARTATE AMINO TRANSFERASE 20 U/L (14-36); BILIRUBIN,DIRECT 0.2 mg/dL (0.0-0.4); BILIRUBIN,TOTAL 0.3 mg/dL (0.2-1.3); BLOOD UREA NITROGEN 4 mg/dL (7-20); CALCIUM 9.2 mg/dL (8.4-10.2); CREATINE KINASE 44 U/L (30-135); GLUCOSE 87 mg/dL (75-110); TOTAL PROTEIN 6.6 g/dL (6.3-8.2)
[2020-11-02 17:09] LABS: CARBON DIOXIDE 26 mmol/L (22-30); CHLORIDE 104 mmol/L (98-107)
[2020-11-02 17:16] LABS: CREATINE KINASE MB < 0.22 ng/mL (<4.55); TROPONIN I < 0.012 ng/mL
[2020-11-02 17:23] LABS: ANION GAP 4 (5-19)
--- NOTE | 2020-11-02 17:50 | EKG REPORT ---
SEVERITY:- NORMAL ECG - SINUS RHYTHM : Confirmed by: Rohan Herndon MD 02-Nov-2020 17:50:14
[2020-11-02] MEDS ORDERED: NORMAL SALINE 1000 ML 1,000 ML IV ONE (20:22)
[2020-11-02] MEDS ORDERED: LIDOCAINE 2% VISCOUS SOLN 15 ML UDCUP PO ONE (20:23)
[2020-11-02] MEDS ORDERED: MAG HYDROX/AL HYDROX/SIMETH SUSP 30 ML UDCUP PO ONE (20:23)
[2020-11-02] MEDS ORDERED: FAMOTIDINE 20 MG TABLET PO ONE (20:24)
[2020-11-02] MEDS ORDERED: ONDANSETRON HCL INJ/PF 4 MG/2 ML SDV IV ONE (20:24)
--- NOTE | 2020-11-02 20:27 | ER Document Report ---
ED GI/ - General Stated Complaint: CHEST PAIN Time Seen by Provider: 11/02/20 16:20 Primary Care Provider: JASMIN GRACIA MD [Primary Care Provider] - Follow up as needed Notes: Patient is a 30 year old female that comes to the emergency department for chief complaint of pain in the upper abdomen that radiates up into her chest and occasionally up into her back. Patient states this has been intermittent for 3 days, much worse with eating, she states she vomited twice today. She states that she has had an endoscopy before and was told she had a hiatal hernia, she has a history of GERD but is not on medication for this currently. Patient is G3, P2 at 17 weeks gestation confirmed by first trimester ultrasound. Patient has had a cholecystectomy, also has a history of asthma and anxiety. She denies fever, cough, difficulty breathing, abnormal bowel movements. She feels a moving occasionally, denies lower abdominal pain, vaginal bleeding or discharge. She has tried Tylenol and Tums without significant change in her symptoms. She has no family cardiac history. TRAVEL OUTSIDE OF THE [place] IN LAST 30 DAYS: No - Related Data Allergies/Adverse Reactions: amoxicillin Allergy (Verified 09/06/20 17:36) clindamycin [Clindamycin] Allergy (Verified 09/06/20 17:36) metoclopramide [From Reglan] Allergy (Verified 09/06/20 17:36) Past Medical History - General Information source: Patient - Social History Smoking Status: Never Smoker Drug Abuse: None Lives with: Family Family History: Reviewed & Not Pertinent, Hypertension. denies: CAD - Past Medical History Cardiac Medical History: Denies: Hx Coronary Artery Disease, Hx Heart Attack, Hx Hypercholesterolemia, Hx Hypertension Pulmonary Medical History: Reports: Hx Asthma Denies: Hx Bronchitis, Hx COPD, Hx Pneumonia Neurological Medical History: Reports: Hx Migraine. Denies: Hx Cerebrovascular Accident, Hx Seizures Renal/ Medical History: Denies: Hx Peritoneal Dialysis GI Medical History: Reports: Hx Gastroesophageal Reflux Disease, Hx Colonoscopy, Hx Endoscopy Musculoskeletal Medical History: Denies Hx Arthritis Skin Medical History: Reports Hx Eczema Past Surgical History: Reports: Hx Section - x2, Hx Cholecystectomy, Other - EGD 2 weeks ago, colonoscopy this morning - Immunizations Immunizations up to date: Yes Hx Diphtheria, Pertussis, Tetanus Vaccination: Yes - 2018 Review of Systems - Review of Systems Constitutional: No symptoms reported EENT: No symptoms reported Cardiovascular: See HPI Respiratory: No symptoms reported Gastrointestinal: See HPI Genitourinary: No symptoms reported Female Genitourinary: See HPI Musculoskeletal: No symptoms reported Skin: No symptoms reported Hematologic/Lymphatic: No symptoms reported Neurological/Psychological: No symptoms reported Physical Exam - Vital signs Vitals: Temp Pulse Resp BP Pulse Ox 98.3 F 93 18 123/80 100 11/02/20 16:11 11/02/20 16:11 11/02/20 16:11 11/02/20 16:11 11/02/20 16:11 - Notes Notes: GENERAL: Alert, interacts well. No acute distress. Talkative and well-appearing HEAD: Normocephalic, atraumatic. EYES: Pupils equal, round, and reactive to light. Extraocular movements intact. ENT: Oral mucosa moist, tongue midline. Oropharynx unremarkable. Airway patent. LUNGS: Clear to auscultation bilaterally, no wheezes, rales, or rhonchi. No respiratory distress. Non-tender chest wall. HEART: Regular rate and rhythm. No murmur ABDOMEN: Slightly obese abdomen limits exam somewhat, there is some generalized upper abdominal tenderness which is mild, mid to lower abdominal exam unremarkable, no guarding, rigidity, or overt distention. EXTREMITIES: Moves all 4 extremities spontaneously. No edema, normal radial and dorsalis pedis pulses bilaterally. No cyanosis. BACK: no cervical, thoracic, lumbar midline tenderness. No saddle anesthesia, normal distal neurovascular exam. Moves all extremities in full range of motion. NEUROLOGICAL: Alert and oriented x3. Normal speech. Cranial nerves II through XII grossly intact. Strength 5/5 in all extremities. PSYCH: Normal affect, normal mood. SKIN: Warm, dry, normal turgor. No rashes or lesions noted. Course - Re-evaluation Re-evalutation: Patient alert and well-appearing, unremarkable vital signs, no tachypnea, hypoxia, or tachycardia. No respiratory complaints on my evaluation. Pain seems to be specifically to the upper abdomen on exam as well. 11/02/20 21:39 Patient reporting her upper abdominal pain/chest pain is actually a lot better after the Zofran, Maalox, Pepcid. Patient has a hiatal hernia, some generalized mild upper abdominal pain, vomited twice earlier. She is tolerating p.o. without difficulty now. We did not obtain chest x-ray today but she is clear lungs, no tachypnea, no hypoxia, no cough, no respiratory symptoms. No lower extremity swelling or recent travel. No history of pulmonary embolism or DVT with previous pregnancies. EKG unremarkable, troponins from triage reviewed and unremarkable. Very low suspicion of acute intrathoracic etiology. Remaining laboratory work-up unremarkable except for microcytic anemia. heart tones performed and approximately 130. Discussed work-up with patient, results, discussed recommendations, treatment, follow-up, return precautions. Patient states appreciation and agreement. Stable and well-appearing at time of discharge. - Vital Signs Vital signs: Temp Pulse Resp BP Pulse Ox 98.4 F 94 17 121/80 100 11/02/20 22:31 11/02/20 19:06 11/02/20 22:31 11/02/20 22:32 11/02/20 22:31 - Laboratory Results Result Diagrams: 11/02/20 16:30 11/02/20 16:30 Laboratory Results Interpreted: 11/02/20 11/02/20 16:30 16:30 Hgb 10.2 L Hct 31.7 L MCV 66 L MCH 21.3 L RDW 14.9 H Sodium 134.1 L Anion Gap 4 L BUN 4 L Beta HCG, Quant 83780.00 H Critical Laboratory Results Reviewed: No Critical Results - Radiology Results Critical Radiology Results Reviewed: No Critical Results - EKG Interpretation by Me Additional EKG results interpreted by me: EKG shows sinus rhythm at a rate of 91, QTc 429, normal axis, no T wave inve rsions or ST segment changes in consecutive leads, machine reads as normal. Discharge - Discharge Clinical Impression: Upper abdominal pain Vomiting Qualifiers: Vomiting type: unspecified Vomiting Intractability: non-intractable Nausea presence: with nausea Qualified Code(s): R11.2 - Nausea with vomiting, unspecified Chest pain Qualifiers: Chest pain type: unspecified Qualified Code(s): R07.9 - Chest pain, unspecified Condition: Stable Disposition: HOME, SELF-CARE Additional Instructions: The tests for your heart and the remaining tests are normal except you do have anemia. Your symptoms appear to be coming from your upper gastrointestinal tract. I recommend the famotidine as prescribed, Maalox if needed for symptom management, Phenergan for nausea if needed. You can take Tylenol. Avoid caffeine, spicy foods, smoking, alcohol. Start with bland diet. Follow-up with primary care for additional management. Return if you worsen including uncontrolled vomiting, severe worsening pain, fever, or any other concerning or worsening symptoms. Prescriptions: Mag Hydrox/Al Hydrox/Simeth [Maalox Plus Susp 30 Udcup] 30 ml PO Q6 PRN #30 udc PRN Reason: Heartburn Famotidine [Pepcid 20 mg Tablet] 20 mg PO BID #20 tablet Promethazine HCl [Phenergan 25 mg Tablet] 25 mg PO Q6H PRN #20 tablet PRN Reason: Referrals: JASMIN GRACIA MD [Primary Care Provider] - Follow up as needed
--- NOTE | 2020-11-02 21:55 | EKG REPORT ---
SEVERITY:- ABNORMAL ECG - SINUS RHYTHM ABNORMAL Q SUGGESTS ANTERIOR INFARCT : Confirmed by: Rohan Herndon MD 02-Nov-2020 21:54:24
[2020-11-02 22:45] VITALS: BP 121/80
== END 2020-11-02 22:41 | disposition home or self-care (01) ==
LOC: ER 15:51
DX: O26.92 Pregnancy related conditions, unspecified, second trimester (principal); O21.9 Vomiting of pregnancy, unspecified; R07.9 Chest pain, unspecified; R10.10 Upper abdominal pain, unspecified; Z3A.17 17 weeks gestation of pregnancy; Z90.49 Acquired absence of other specified parts of digestive tract; Z88.0 Allergy status to penicillin
CPT/HCPCS: 93005; 99284; 96361; 96374; 36415; 82553; 82550; 84702; 83690; 85025; 80053; 84484; 93010; J3490; J2405; J7030